=== PATIENT | male | born 1975 | race Caucasian/White ===

== ENCOUNTER → 2019-05-21 08:30 | Outpatient (CLI) | payer BC, SELFPAY ==
[2019-05-21 10:23] LABS: ALB/GLOB Ratio 1.1 RATIO (0.9-2.4); AST(SGOT) 31 U/L (15-37); Alanine Aminotransfer ALT/SGPT 43 U/L (16-61); Alkaline Phosphatase 72 U/L (45-117); Anion Gap 0 (5-15); BUN 19 mg/dL (7-18); BUN/Creat Ratio 15.4 RATIO (10-20); Calcium,Total 9.1 mg/dL (8.5-10.1); Chloride 105 mmol/L (98-107); Cholesterol 186 mg/dL (200); Creatinine, Serum 1.23 mg/dL (0.70-1.30); EST Glomerular Filtration Rate 68 mL/min (>60); Est Glom Filt Rate - Afr Amer 82 mL/min (>60); Globulin 3.5 g/dL (2.2-4.2); Glucose 85 mg/dL (74-106); High Density Lipoprotein 50 mg/dL; Potassium 4.7 mmol/L (3.5-5.1); Protein, Total 7.5 g/dL (6.4-8.2); Sodium Level 140 mmol/L (136-145); Triglycerides 131 mg/dL; Very Low Density Lipoprotein 26 mg/dL (5-40)
[2019-05-21 11:43] LABS: Microalbumin,Random Urine < 5.0 mg/L (NO RANGE EST.)
== END ==
PROVIDERS: Family Provider Family Medicine; PCP Family Medicine; Referring Provider Family Medicine; Visit Provider Family Medicine
DX: Z00.00 Encounter for general adult medical examination without abnormal findings (principal)
CPT/HCPCS: 36415; 80053; 80061; 82043; 82570

== ENCOUNTER → 2019-12-31 09:24 | Outpatient (CLI) | payer BC, SELFPAY ==
[2019-12-31 12:43] LABS: Anion Gap 7 (5-15); BUN 23 mg/dL (7-18); BUN/Creat Ratio 21.1 RATIO (10-20); Calcium,Total 9.3 mg/dL (8.5-10.1); Chloride 104 mmol/L (98-107); Creatinine, Serum 1.09 mg/dL (0.70-1.30); EST Glomerular Filtration Rate 78 mL/min (>60); Est Glom Filt Rate - Afr Amer 94 mL/min (>60); Glucose 84 mg/dL (74-106); Sodium Level 141 mmol/L (136-145)
== END ==
PROVIDERS: PCP Family Medicine; Visit Provider Family Medicine
DX: I10 Essential (primary) hypertension (principal)
CPT/HCPCS: 36415; 80048

== ENCOUNTER → 2020-07-06 14:55 | Outpatient (CLI) | payer BC, SELFPAY ==
[2020-07-06 18:26] LABS: Anion Gap 6 (5-15); BUN 20 mg/dL (7-18); BUN/Creat Ratio 18.3 RATIO (10-20); Calcium,Total 8.8 mg/dL (8.5-10.1); Chloride 105 mmol/L (98-107); Creatinine, Serum 1.09 mg/dL (0.70-1.30); EST Glomerular Filtration Rate 78 mL/min (>60); Est Glom Filt Rate - Afr Amer 94 mL/min (>60); Glucose 100 mg/dL (74-106); Potassium 3.9 mmol/L (3.5-5.1); Sodium Level 141 mmol/L (136-145)
[2020-07-06 18:45] LABS: Microalbumin,Random Urine 7.8 mg/L (NO RANGE EST.); Microalbumin:Creatinine Ratio 3.6 mg/g CRE (<30 mg/g CRE)
== END ==
PROVIDERS: PCP Family Medicine; Referring Provider Family Medicine; Visit Provider Family Medicine
DX: Z00.00 Encounter for general adult medical examination without abnormal findings (principal)
CPT/HCPCS: 36415; 80048; 82043; 82570

== ENCOUNTER → 2020-07-29 16:44 | Outpatient (CLI) | payer BC, SELFPAY ==
--- NOTE | 2020-07-29 16:50 | RAD_ITS ---
STUDY: X-RAY - LUMBAR SPINE REASON FOR EXAM: Male, 45 years old. Lower back pain. TECHNIQUE: 3 view(s) of the lumbar spine were obtained. COMPARISON: None FINDINGS: Normal lumbar lordosis. There is no substantial scoliosis. There is a normal alignment of the vertebrae. Normal vertebral bodies and endplates. Normal disc space heights. There is no evidence of acute fracture or loss of vertebral axial height. The soft tissue structures are unremarkable. RAD/Lumbar Spine 2 or 3 Views IMPRESSION: Normal x-ray examination of the lumbar spine. Electronically Signed: Mario Jimenez DO at 16:40 EST Tel [phone], Service support ,
--- NOTE | 2020-07-29 16:51 | RAD_ITS ---
STUDY: X-RAY - THORACIC SPINE REASON FOR EXAM: Male, 45 years old. Upper back pain radiating between shoulder blades in the left shoulder and into the hand. TECHNIQUE: 3 view(s) of the thoracic spine were obtained. COMPARISON: None. FINDINGS: Normal kyphosis of the thoracic spine. There is no substantial scoliosis. Normal thoracic vertebrae and endplates. Normal disc space heights. There is no evidence of acute fracture or loss of vertebral axial height. The soft tissue structures are unremarkable. RAD/Thoracic Spine 3 Views IMPRESSION: Normal x-ray examination of the thoracic spine. Electronically Signed: Mario Jimenez DO at 16:44 EST Tel [phone], Service support ,
== END ==
PROVIDERS: PCP Family Medicine; Referring Provider Family Medicine; Visit Provider Family Medicine
DX: M54.9 Dorsalgia, unspecified (principal)
CPT/HCPCS: 72072; 72100

== ENCOUNTER 2020-09-20 10:30 | Outpatient (RCR) | payer BC, SELFPAY ==
--- NOTE | 2020-08-03 14:57 | HP.PTEVAL ---
Patient's Visit Information SHANELLE HARGROVE is a 45 year old M referred to Physical Therapy by Dr. Jackson Sapp MD with a diagnosis of BACK PAIN. Date of Evaluation: 08/03/20 Physical Therapist: Jorge Hernandez, PT, Cert MDT, OCS - Visit Plan Frequency: 2x /Week Duration: 4 Weeks Plan: PT INTERVENTIONS MANULA THERAPY TRACTION- MOBILIZATION THORACIC /CERVICAL,SARA EX'S,POSTURAL EX'S,MODALTIES -ICTX 15-23# ,THORACIC MOBLITY - Subjective This 45 y/o male presents to physical therapy with back pain. Patient has back pain for about 2 years . Patient pain is located upper back shoulder scapular ,neck radiates to left arm. Patient about one year on swing and pulled back felt pain in left arm. Patient has seen massage therapy . Patient has seen chiroprcator as well.Patient MEDS overcounter. Patient had x-ray in thoracic, Denies parathesai/tingling ,occassionally left shoulder and occassionally deltoid. Aggraveting factors sitting,bending flexion lifting. Alleviating factors MEDS . Hobbies plays [employer].C/O PÉREZ ,denies nausea/tinnutis. Patient sleeping okay. Patient pain in neck and upper back affects jobs and hosueworks. Patient symptoms afects QOL.Pain at worse 8-9/10. SOCAIL: . 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 PALPATION: unremrkable. NEURO: intact ,denies parathesia/tingling,reflexes C5-6-7 1/3. 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 AROM: shoulder flexion /abd WFL. MMT: BUE 5/5 ,SHOULDER RIGHT 4/5 ,LEFT 4-/5. CERVICAL ROM: flexion min loss pain,extension min/mod loss,rotation/lateral felxion min/mod loss ,retraction min loss,protrusion min loss. THORACIC ROM: min loss ,extension /flexion/rotation - Special Tests C/S Radiculapathy - Left Upper limb tension test: Negative C/S Radiculapathy - Right Upper limb tension test: Negative C/S Radiculapathy - Left Spurlings: Positive C/S Radiculapathy - Right Spurlings: Negative C/S Radiculapathy - Left Cervical distraction: Negative C/S Radiculapathy - Right Cervical distraction: Negative C/S Radiculapathy - Left Relief test: Negative Sharp Janusz: Negative Vertebral Artery Test: Negative Alar Ligament Test: Negative Cervical Sitting: Protrusion - Mechanical Response: No effect Cervical Sitting: Protrusion - Symptoms During Testing: Increases Cervical Sitting: Protrusion - Symptoms After Testing: No worse Cervical Sitting: Retraction - Mechanical Response: No effect Cervical Sitting: Retraction - Symptoms During Testing: Increases Cervical Sitting: Retraction - Symptoms After Testing: Worse Comments:: UT/SHOULDER Cervical Sitting: Retraction-Extension - Mechanical Response: No effect Cerv Sitting: Retraction-Extension - Symptoms During Testing: No effect Cerv Sitting: Retraction-Extension - Symptoms After Testing: No effect Cervical Sitting: Sidebend Right - Mechanical Response: No effect Cervical Sitting: Sidebend Right - Symptoms During Testing: No effect Cervical Sitting: Sidebend Right - Symptoms After Testing: No effect Cervical Sitting: Sidebend Left - Mechanical Response: No effect Cervical Sitting: Sidebend Left - Symptoms During Testing: Increases Cervical Sitting: Sidebend Left - Symptoms After Testing: No worse Cervical Sitting: Rotation Right - Mechanical Response: No effect Cervical Sitting: Rotation Right - Symptoms During Testing: No effect Cervical Sitting: Rotation Right - Symptoms After Testing: No effect Cervical Sitting: Rotation Left - Mechanical Response: No effect Cervical Sitting: Rotation Left - Symptoms During Testing: Increases Cervical Sitting: Rotation Left - Symptoms After Testing: No worse Cervical Sitting: Flexion - Mechanical Response: No effect Cervical Sitting: Flexion - Symptoms During Testing: Increases Cervical Sitting: Flexion - Symptoms After Testing: Worse Thoracic Sitting: Flexion - Mechanical Response: No effect Thoracic Sitting: Flexion - Symptoms During Testing: No effect Thoracic Sitting: Flexion - Symptoms After Testing: No effect Thoracic Sitting: Extension - Mechanical Response: No effect Thoracic Sitting: Extension - Symptoms During Testing: No effect Thoracic Sitting: Extension - Symptoms After Testing: No effect Thoracic Sitting: Right rotation - Mechanical Response: No effect Thoracic Sitting: Right Rotation - Symptoms During Testing: No effect Thoracic Sitting: Right Rotation - Symptoms After Testing: No effect Thoracic Sitting: Left rotation - Mechanical Response: No effect Thoracic Sitting: Left Rotation - Symptoms During Testing: No effect Thoracic Sitting: Left Rotation - Symptoms After Testing: No effect - Goals Goal 1:: I with HEP . Goal Time Frame: 4-6 Weeks Goal 2:: Improve posture for prophalaxis Goal Time Frame: 4-6 Weeks Goal 3:: Patient to reduce cervical and upper back symptoms with radicaular by 50% or > to improve function. Goal Time Frame: 4-6 Weeks Goal 4:: Patient to improve cervical and thoracic ROM for function of recovery Goal Time Frame: 4-6 Weeks Goal 5:: Patient to improve neck owestry score by 5 points 0r> to improve QOL. Goal Time Frame: 4-6 Weeks - Rehabilitation Potential Physical Therapy Diagnosis: This patient has possiblel cervical derrangement with disc due to flexion ,postural deficits,postional and motion testing increases symptoms in left arm tatiana irwin from skilled PT Rehabilitation Potential: Good - Anticipated Interventions Patient/Client Instruction: Educate patient on: Condition, Plan of Care For the Purpose of:: To decrease pain, To increase ROM, To improve muscle performance and motor function, To improve ability to perform ADL's, To increase tolerance to activity/condition/position, To improve ability of physical actions for home/community/work/leisure, To improve health of tissue, To decrease soft tissue restriction, To increase flexibility/ROM, To improve balance, To reduce risk of recurrence, To improve health and function, To improve ability to perform tasks related to life management Therapeutic Exercise to Include: Strength training, Body mechanics, Postural training, Flexibilty training, Sara Exercises For the Purpose of:: To decrease pain, To increase ROM, To improve muscle performance and motor function, To improve ability to perform ADL's, To improve performance and independence with ADL's, To improve ability of physical actions for home/community/work/leisure, To decrease soft tissue restriction, To increase flexibility/ROM, To reduce risk of recurrence, To improve ability to perform tasks related to life management Manual Therapy Techniques to Include: Mobilization Comment: CERVICAL TRACTION ,THORACIC For the Purpose of:: To decrease pain, To increase ROM, To improve nutrient delivery to tissue, To increase oxygenation perfusion, To improve health of tissue, To decrease soft tissue restriction, To increase flexibility/ROM TENS: Yes IF ES: Yes Cryotherapy (ice pack, ice massage): Yes Thermo therapy (hot pack): Yes Ultrasound (thermal/non thermal): Yes Intermittent cervical traction: Yes - # For the Purpose of:: To decrease pain, To increase ROM, To improve nutrient delivery to tissue, To increase oxygenation perfusion, To improve health of tissue, To decrease soft tissue restriction, To increase flexibility/ROM Thank you for the opportunity to evaluate your patient. For Medicare and Medicare HMO plans, please review the plan of care and approve it. It will need to be FAXED BACK to us at [phone] for Medicare purposes. For Medicare only, by signing this I certify the plan of care. Please let me know if there are questions or concerns regarding this plan of care. Physician Signature: Date:
--- NOTE | 2020-09-20 10:59 | HP.PTDCSUM ---
It has been my pleasure to treat SHANELLE HARGROVE referred by Dr. Jackson Sapp MD, with the diagnosis of BACK PAIN for a total of 7 visit(s). Discharge Date: 09/20/20 Please see the following information for a summary of their discharge status. Subjective: Doing well .. no pain today. sleeping better.palb to RTD Left Neck Pain Intensity (Out of 10): 0 Left Scapula Pain Intensity (Out of 10): 0 Left Shoulder Pain Intensity (Out of 10): 0 % Improvement: 90 Objective/Function: POSTURE: WFL. BUE: AROM WFL. MMT: 5/5. CERVICAL ROM: flexion WFL,extension min loss,lateral flexion/rotation WFL Goal 1:: I with HEP . Goal Progress: Goal Met Goal 2:: Improve posture for prophalaxis Goal Progress: Goal Met Goal 3:: Patient to reduce cervical and upper back symptoms with radicaular by 50% or > to improve function. Goal Progress: Goal Met Goal 4:: Patient to improve cervical and thoracic ROM for function of recovery Goal Progress: Goal Met Goal 5:: Patient to improve neck owestry score by 5 points 0r> to improve QOL. Goal Progress: Goal Met Plan: D/C Discharge Comments: HEP If there are questions or concerns regarding this patient's physical therapy, please feel free to call me at [phone]. Thank you for the referral of this patient. Sincerely, Jorge Hernandez, PT, Cert MDT, OCS
== END 2020-09-20 19:00 | disposition home or self-care (01) ==
LOC: PT 10:30
PROVIDERS: PCP Family Medicine; Referring Provider Family Medicine; Visit Provider Family Medicine
DX: M54.9 Dorsalgia, unspecified (principal)
CPT/HCPCS: 97012; 97035; 97110; 97140; 97161

== ENCOUNTER → 2021-01-21 06:30 | Outpatient (CLI) | payer BC, SELFPAY ==
--- NOTE | 2021-01-21 06:40 | MRI_ITS ---
STUDY: MRI CERVICAL SPINE WITHOUT CONTRAST REASON FOR EXAM: Male, 45 years old. L SHOULDER PAIN TECHNIQUE: Standardized fat and water weighted pulse sequences were obtained in the sagittal and axial planes. COMPARISON: None FINDINGS: Normal foramen magnum and brainstem-cervical cord junction. Normal craniovertebral junction. Normal anterior atlantoaxial articulation. Normal odontoid process. Normal cervical lordosis. Normal vertebral bodies and posterior osseous elements. C2-3: Normal endplates. Normal disc height, signal and morphology. Normal central canal and intervertebral neural foramina. C3-4: Normal endplates. Normal disc height, signal and morphology. Normal central canal and intervertebral neural foramina. C4-5: Normal endplates. Normal disc height, signal and morphology. Normal central canal and intervertebral neural foramina. C5-6: Normal endplates. Normal disc height, signal and morphology. Normal central canal and intervertebral neural foramina. C6-7: Normal endplates. Mild disc space height narrowing. Small left posterior paramedian disc protrusion touching the left ventral cord surface. Mild stenosis of the left intervertebral neural foramen. Normal right intervertebral neural foramen. C7-T1: Normal endplates. Normal disc height, signal and morphology. Normal central canal and intervertebral neural foramina. T1-T2, T2-T3, T3-T4 and T4-T5: (Sagittal only). Normal endplates. Normal disc height, signal and morphology. Normal central canal and intervertebral neural foramina. Normal cervical cord. Normal included upper thoracic spinal cord. Normal included portions of the brainstem and cerebellum. Normal visualized soft tissue structures. MRI/Spine Cervical (Routine) IMPRESSION: 1. C6-C7 posterior paramedian disc protrusion touching the left ventral cord surface without obvious displacement of the left C7 nerve root sleeve. 2. No MRI evidence of cervical extruded disc fragment. Electronically Signed: Dirk West MD at 16:12 EDT , Service support ,
== END ==
PROVIDERS: PCP Family Medicine; Referring Provider Family Medicine; Visit Provider Family Medicine
DX: M54.12 Radiculopathy, cervical region (principal)
CPT/HCPCS: 72141

== ENCOUNTER → 2022-12-22 | Outpatient (CLI) | payer OTHER, SELFPAY ==
[2022-12-22 09:26] LABS: ALB/GLOB Ratio 1.2 RATIO (0.9-2.4); AST(SGOT) 17 U/L (15-37); Alanine Aminotransfer ALT/SGPT 20 U/L (16-61); Albumin, Serum 3.9 g/dL (3.2-5.0); Alkaline Phosphatase 62 U/L (45-117); Anion Gap 5 (5-15); BUN 22 mg/dL (7-18); BUN/Creat Ratio 19.1 RATIO (10-20); Calcium,Total 8.9 mg/dL (8.5-10.1); Chloride 107 mmol/L (98-107); Cholesterol 187 mg/dL (200); Creatinine, Serum 1.15 mg/dL (0.70-1.30); EST Glomerular Filtration Rate 72 mL/min (>60); Est Glom Filt Rate - Afr Amer 87 mL/min (>60); Globulin 3.3 g/dL (2.2-4.2); Glucose 92 mg/dL (74-106); High Density Lipoprotein 57 mg/dL; Potassium 4.5 mmol/L (3.5-5.1); Protein, Total 7.2 g/dL (6.4-8.2); Sodium Level 141 mmol/L (136-145); Triglycerides 68 mg/dL; Very Low Density Lipoprotein 14 mg/dL (5-40)
[2022-12-22 09:38] LABS: Microalbumin,Random Urine 5.6 mg/L (NO RANGE EST.); Microalbumin:Creatinine Ratio 3.7 mg/g CRE (<30 mg/g CRE)
== END | disposition home or self-care (01) ==
LOC: LAB 07:56
PROVIDERS: PCP Family Medicine; Referring Provider Family Medicine; Visit Provider Family Medicine
DX: I10 Essential (primary) hypertension (principal)
CPT/HCPCS: 36415; 80053; 80061; 82043; 82570

== ENCOUNTER 2023-04-13 06:23 | Day surgery (SDC) | payer OTHER, SELFPAY ==
[2023-04-13] VITALS (11 sets, daily range): BP systolic 109–152; BP diastolic 71–117; PULSE 45–54; RESP 16; TEMP 36.2–36.5; O2SAT 97–100; BMI 26.6
--- NOTE | 2023-04-13 | COLBX_PTH ---
PATIENT: SHANELLE HARGROVE LOC: EN U#:[id number] AGE/SX: 48/M ROOM: RE04/13/[address]: Dr. Al Vasquez MD : 1975 BED: DIS: 04/13/2023 SPEC #: [id number] RECD: 04/13/23 08:52 STATUS: DEBBIE MEDINAJoi #: [id number] JUAN: 04/13/23 00:[address]: Al Vasquez DEPT: SURGICAL PATHOLOGY RECD BY: Rusty Marie ENTERED: 04/13/23 08:52 SP TYPE: COLON BX OTHR DR: Dr. 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 See comment. SJ:rg 04/16/2023 COMMENT COLON CANCER SUMMARY: Specimen integrity - fragmented (one large polyp and additional smaller fragments). Tumor size - splenic flexure Histologic type - adenocarcinoma Histologic grade - well-differentiated Size of invasive carcinoma cannot be determined (the invasive carcinoma is present mixed with high-grade dysplasia and carcinoma in situ). Tumor extent - tumor invades submucosa. Lymphvascular invasion - not identified Tumor deposits - none Type of polyp in which invasive carcinoma arose - tubulovillous adenoma Polyp site - 1.8 cm (largest fragment) Polyp configuration - sessile Margin status for invasive carcinoma: The tumor is present focally at the cauterized deep margin. Focal area of deep margin also shows muscularis propria which is free of tumor. Additional findings - none Ancillary studies - none The above summary is in compliance with [employer] [place] [employer] (CAP) Cancer Protocols Checklist and [place] Joint Committee on Cancer (AJCC), Staging Manual, 8th Ed. This case is discussed with Dr. Vasquez on 04/16/2023. MICROSCOPIC DESCRIPTION Slides are reviewed. GROSS DESCRIPTION Received in fixative is one container labeled with the patient's name and designated polyp splenic flexure. The specimen consists of a pink-red polyp measuring 1.8 x 1.8 x 1.0 cm. The presumed base is inked. The polyp is serially sectioned. Also present in the container are multiple detached fragments of cavanaugh-pink soft tissue measuring in aggregate 2.0 x 0.5 x0.1 cm. The entire specimen is submitted in three cassettes as follows: 1 & 2 - polyp, 3 - fragments of tissue. / MELCHOR:josh 04/13/2023 TC:0 CPT: 82456
--- NOTE | 2023-04-13 06:45 | HP.PCM_ITS ---
[facility] - General General Date of Service: 04/13/23 Chief Complaint: Screening for intestinal cancer HPI Narrative SHANELLE HARGROVE, is a 48 M who presents who presents via open access today for screening colonoscopy with possible biopsy or polypectomy. Intermittently he occasionally will have some bright red blood on the tissue paper and attributes that to hemorrhoids. He states that he otherwise enjoys good health other than treated hypertension Family history is negative for colon polyps or colon cancer [facility] Medical History (Updated 04/10/23 @ 12:49 by Yumi Chicas) Cardiac murmur Conductive hearing loss HTN (hypertension) Migraine Non-smoker Thrombosed external hemorrhoid Home Medications bisoprolol fumarate 5 mg tablet 5 mg PO DAILY 02/23/23 [History Last Taken Unknown] lisinopril 20 mg tablet 20 mg PO DAILY 02/23/23 [History Last Taken Unknown] Allergy/AdvReac Type Severity Reaction Status Date / Time No Known Allergies Allergy Verified 04/13/23 06:49 Surgical History Barron teeth extracted Social History (Updated 02/23/23 @ 11:31 by Lupis Evangelista) household members: spouse and children number of children: 9 current occupational status: employed 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 Smoking Status: Never smoker alcohol intake: never ROS Constitutional Constitutional: Reports systems reviewed and no addt'l complaints, except as documented Cardiovascular Cardiovascular: Denies chest pain Respiratory/Chest Respiratory/Chest: Denies shortness of breath at rest Gastrointestinal Gastrointestinal: Denies abdominal pain, change in bowel habits, hematochezia or melena Physical Exam Const alert, oriented x3 and no apparent distress General Appearance: cooperative and comfortable Eyes General Eye: normal appearance of both eyes Neck General: normal visual inspection Chest inspection of chest normal Resp Effort and Inspection: able to speak in complete sentences and symmetric chest movement Auscultation: clear to auscultation bilaterally Cardio regular rate and regular rhythm GI soft to palpation, non-tender and non-distended Extremity no calf tenderness Neuro oriented x3 Psych thought process normal Assessment & Plan Assessment/Plan (1) Encounter for screening for malignant neoplasm of colon: PLAN: 48-year-old gentleman presents via open access today for screening colonoscopy with possible biopsy or polypectomy. He has not had a previous one. He is aware of the technique, benefit, risk, alternatives. He has had an opportunity to ask and have questions answered. We will proceed as noted. Al Vasquez M.D., F.A.C.S.
[2023-04-13] MEDS: Lactated Ringers 1,000 ML 15 ML IV (07:00)
--- NOTE | 2023-04-13 08:10 | OP.COLON_ITS ---
Patient Name: Zachary Armas Procedure Date: 04/13/2023 7:16 AM Date of : 1975 Age: 48 Procedure: Colonoscopy Indications: Screening for colorectal malignant neoplasm Providers: Al Vasquez MD Referring MD: Jackson Sapp Medicines: Midazolam 5 mg IV, Meperidine 100 mg IV Patient Profile: Last Colonoscopy: none. The patient's first colonoscopy is today. Complications: No immediate complications. Procedure: Pre-Anesthesia Assessment: - Prior to the procedure, a History and Physical was performed, and patient medications and allergies were reviewed. The patient's tolerance of previous anesthesia was also reviewed. The risks and benefits of the procedure and the sedation options and risks were discussed with the patient. All questions were answered, and informed consent was obtained. Prior Anticoagulants: The patient has taken no anticoagulant or antiplatelet agents. ASA Grade Assessment: I - A normal, healthy patient. After reviewing the risks and benefits, the patient was deemed in satisfactory condition to undergo the procedure. After I obtained informed consent, the scope was passed under direct vision. Throughout the procedure, the patient's blood pressure, pulse, and oxygen saturations were monitored continuously. The Colonoscope was introduced through the anus and advanced to the cecum, identified by appendiceal orifice and ileocecal valve. The colonoscopy was performed with moderate difficulty due to a tortuous colon. Successful completion of the procedure was aided by increasing the dose of sedation medication. The patient tolerated the procedure well. The quality of the bowel preparation was fair. The ileocecal valve and the appendiceal orifice were photographed. Moderate Sedation: Moderate (conscious) sedation was personally administered by the endoscopist. The following parameters were monitored: oxygen saturation, heart rate, blood pressure, and response to care. Total physician intraservice time was 20 minutes. Scope In: 7:23:37 AM Scope Withdrawal Time 0 hours 27 minutes 55 seconds Scope Out: 8:01:22 AM Total Procedure Duration Time 0 hours 37 minutes 45 seconds Findings: The perianal and digital rectal examinations were normal. The colon (entire examined portion) was moderately tortuous. Advancing the scope required using manual pressure. An 18 mm polyp was found in the splenic flexure. The polyp was sessile. The polyp was removed with a hot snare. Polyp resection was incomplete. The resected tissue was retrieved. To prevent bleeding post-intervention, four hemostatic clips were successfully placed. There was no bleeding at the end of the procedure. Area was tattooed with an injection of 2 mL of Rashida ink. Impression: - Preparation of the colon was fair. - Tortuous colon. - One 18 mm polyp at the splenic flexure, removed with a hot snare. Incomplete resection. Resected tissue retrieved. Clips were placed. Tattooed. Recommendation: - Repeat colonoscopy in 1 month for surveillance based on pathology results Upon and upright abdominal x-rays will be obtained. The patient will be observed.. - Return to my office in 1 week. - Continue present medications. Procedure Code(s): --- Professional --- 21348, Colonoscopy, flexible; with removal of tumor(s), polyp(s), or other lesion(s) by snare technique 04851, Colonoscopy, flexible; with directed submucosal injection(s), any substance 16128, 59, Moderate sedation services provided by the same physician or other qualified health critical care cns performing the diagnostic or therapeutic service that the sedation supports, requiring the presence of an independent trained observer to assist in the monitoring of the patient's level of consciousness and physiological status; initial 15 minutes of intraservice time, patient age 5 years or older Diagnosis Code(s): --- Professional --- Z12.11, Encounter for screening for malignant neoplasm of colon D12.3, Benign neoplasm of transverse colon (hepatic flexure or splenic flexure) Q43.8, Other specified congenital malformations of intestine CPT copyright 2021 [place]. All rights reserved. The codes documented in this report are preliminary and upon volleyball player review may be revised to meet current compliance requirements. Al Vasquez MD 04/13/2023 8:09:42 AM This report has been signed electronically. Number of Addenda: 1 Note Initiated On: 04/13/2023 7:16 AM Addendum Number: 1 Addendum Date: 04/13/2023 8:42:09 AM It is of note that in addition to the IV Demerol and Versed Benadryl 12.5 mg were given as intravenous sedation Al Vasquez M.D., F.A.C.S. Al Vasquez MD 04/13/2023 8:42:40 AM This report has been signed electronically.
--- NOTE | 2023-04-13 08:10 | OP.CCLET_ITS ---
04/13/2023 Jackson Sapp [address] [place] [address] Re : Colonoscopy procedure for Zachary Armas Dear Dr. Sapp This procedure was performed on Thursday, April 13, 2023. My impressions and recommendations are as follows: Impressions : - Preparation of the colon was fair. - Tortuous colon. - One 18 mm polyp at the splenic flexure, removed with a hot snare. Incomplete resection. Resected tissue retrieved. Clips were placed. Tattooed. Recommendations : - Repeat colonoscopy in 1 month for surveillance based on pathology results Upon and upright abdominal x-rays will be obtained. The patient will be observed.. - Return to my office in 1 week. - Continue present medications. My findings are described in the full procedure note, which is enclosed. If I can be of further assistance, please feel free to contact me at Doctor phone number(s): Work: . Sincerely, Al Vasquez MD 04/13/2023 8:09:42 AM This report has been signed electronically.
[2023-04-13] MEDS: Midazolam 2 MG/2 ML Syringe (08:12)
--- NOTE | 2023-04-13 08:35 | RAD_ITS ---
INDICATION: POST OP -- SUPINE AND UPRIGHT EXAMINATION/TECHNIQUE: X-RAY - XR Abdomen W/ Decub and/or Erect Views COMPARISON: No relevant prior comparison study available FINDINGS: BOWEL GAS PATTERN: There are scattered air-fluid levels within nondistended loops of bowel. There are surgical clips within the left abdomen. FREE AIR: No free air is visualized. LOWER CHEST: No acute pathology. BONES AND SOFT TISSUES: No acute pathology. RAD/Abd Inc Decub and/or Erect IMPRESSION: Nonspecific bowel gas pattern. Electronically Signed: Jennifer Khoury MD at 8:58 EDT ,
--- NOTE | 2023-04-13 08:48 | SUR.PHASEII ---
returned from xray -awaiting Dr Vasquez to review
--- NOTE | 2023-04-13 08:58 | NURSING ---
abd soft nontender, no pain
== END 2023-04-13 10:21 | disposition home or self-care (01) ==
LOC: EN 06:24 → AC 06:25
PROVIDERS: PCP Family Medicine; Referring Provider Family Medicine; Visit Provider Surgery
PROC: 0DJD8ZZ Inspection of Lower Intestinal Tract, Via Natural or Artificial Opening Endoscopic (ICD-10-PCS; CPT 45378; principal; 2023-04-13 07:25)
DX: Z12.11 Encounter for screening for malignant neoplasm of colon (principal); I10 Essential (primary) hypertension; D12.3 Benign neoplasm of transverse colon; Q43.8 Other specified congenital malformations of intestine
CPT/HCPCS: 45385; 45381; 74019; 88305; 88307; 99152; 99153; J7120; A4648

== ENCOUNTER → 2023-04-16 | Outpatient (CLI) | payer OTHER, SELFPAY ==
[2023-04-16 16:34] LABS: Absolute Lymphocyte Count 1.08 X10^3/uL (0.83-4.51); Absolute Neutrophil Count 5.7 X10^3/uL (2.0-7.7); Basophil# 0.03 X10^3/uL; Basophil% 0.4 % (0-1); Eosinophil# 0.02 X10^3/uL; Eosinophils% 0.3 % (0-5); Hematocrit 42.9 % (40-54); Hemoglobin 14.7 g/dL (13.0-16.5); Lymphocyte # 1.08 X10^3/ul (0.83-4.51); Lymphocyte % 14.8 % (19-41); Mean Corp Hgb Conc 34.3 g/dL (32-36); Mean Corpuscular Hgb 31.1 pg (27.0-32.0); Mean Corpuscular Volume 90.7 fL (80-94); Mean Platelet Vol. 9.6 fl (6.2-12.0); Monocyte% 6.8 % (0-10); NRBC Flagged by Analyzer 0 % (0-5); Neutrophil # 5.65 X10^3/uL (2.7-7.7); Neutrophil % 77.4 % (47-70); Platelet Count 243 K/mm3 (150-450); RBC Distribution Width CV 11.6 % (11.6-14.6); RBC Distribution Width SD 38.6 fl (35.1-43.9); Red Blood Count 4.73 M/mm3 (4.6-6.2); White Blood Count 7.3 K/mm3 (4.4-11.0)
[2023-04-16 17:13] LABS: ALB/GLOB Ratio 1.2 RATIO (0.9-2.4); AST(SGOT) 17 U/L (15-37); Alanine Aminotransfer ALT/SGPT 24 U/L (16-61); Alkaline Phosphatase 81 U/L (45-117); Anion Gap 3 (5-15); BUN 13 mg/dL (7-18); BUN/Creat Ratio 11.3 RATIO (10-20); Chloride 107 mmol/L (98-107); Creatinine, Serum 1.15 mg/dL (0.70-1.30); EST Glomerular Filtration Rate 72 mL/min (>60); Est Glom Filt Rate - Afr Amer 87 mL/min (>60); Globulin 3.4 g/dL (2.2-4.2); Glucose 104 mg/dL (74-106); Potassium 3.7 mmol/L (3.5-5.1); Protein, Total 7.4 g/dL (6.4-8.2); Sodium Level 140 mmol/L (136-145)
[2023-04-18 04:07] LABS: Carcinoembryonic Antigen < 0.6 ng/mL (0.0-4.7)
[2023-04-18 13:50] LABS: Magnesium 2.5 mg/dL (1.6-2.6)
== END | disposition home or self-care (01) ==
LOC: LAB 15:41
PROVIDERS: Anesthesiology; PCP Family Medicine; Referring Provider Surgery; Visit Provider Surgery
DX: Z01.818 Encounter for other preprocedural examination (principal); C18.9 Malignant neoplasm of colon, unspecified
CPT/HCPCS: 36415; 80053; 82378; 83735; 85025

== ENCOUNTER → 2023-04-20 | Outpatient (CLI) | payer OTHER, SELFPAY ==
--- NOTE | 2023-04-20 08:09 | CT_ITS ---
STUDY: CT ABDOMEN AND PELVIS WITH CONTRAST REASON FOR EXAM: Male, 48 years old. Prior to surgery. FOUND COLON CANCER DURING COLONOSCOPY RADIATION DOSAGE (If Supplied By Facility): CTDIvol = ( 9.85 ) mGy, DLP = ( 596.31 ) mGycm TECHNIQUE: Transaxial images were obtained from the dome of the diaphragm to the symphysis pubis with oral contrast. 100mL Isovue-300 was administered. Sagittal and coronal images were reconstructed. Individualized dose optimization techniques were used for this CT. COMPARISON: None. FINDINGS: The visualized lung bases are unremarkable. The visualized portions of the heart are within normal limits. Normal liver. Normal gallbladder and extrahepatic biliary system. Normal spleen. Normal pancreas. Normal bilateral adrenal glands. Normal right kidney. Normal left kidney. Normal visualized stomach. Normal small intestine. There is metallic density in the left colon with adjacent wall thickening and potential mass. The appendix is visualized and appears normal. Normal abdominal aorta. Normal inferior vena cava. Normal retroperitoneum. Normal urinary bladder. There is no free fluid in the abdomen or pelvis. Normal abdominal wall. Normal osseous structures. CT/Abdomen/Pelvis WITH Contrast IMPRESSION: Potential mass of the left colon. No obstruction. Electronically Signed: Dillon Yeh MD at 15:50 EDT ,
== END | disposition home or self-care (01) ==
LOC: CT 07:52
PROVIDERS: PCP Family Medicine; Referring Provider Surgery; Visit Provider Surgery
DX: C18.9 Malignant neoplasm of colon, unspecified (principal)
CPT/HCPCS: 74177; Q9967

== ENCOUNTER 2023-04-27 17:05 | Inpatient (IN) | payer OTHER, SELFPAY ==
--- NOTE | 2023-03-20 08:03 | EKG12_ITS ---
Test Reason : PREOP Blood Pressure : / mmHG Vent. Rate : 055 BPM Atrial Rate : 055 BPM P-R Int : 116 ms QRS Dur : 086 ms QT Int : 426 ms P-R-T Axes : 026 019 032 degrees QTc Int : 407 ms Sinus bradycardia Otherwise normal ECG Confirmed by PUMA AMADOR, HAI ([id number]), publication editor AMIRA DAVIDSON ([id number]) on 05/10/2023 2:07:11 PM Referred By: Al Vasquez Confirmed By:JAYMIE BARTHOLOMEW MD
--- NOTE | 2023-04-24 15:45 | RAD_ITS ---
INDICATION: PREOP EXAMINATION/TECHNIQUE: X-RAY - XR Chest 2 Views COMPARISON: CT abdomen and pelvis April 20, 2023 FINDINGS: LINES/DEVICES: None. LUNGS: Symmetric normal lung volumes. No airspace opacity or abnormal interstitial pattern. No nodule or mass. No pleural effusion or pneumothorax. MEDIASTINUM AND CARDIOVASCULAR STRUCTURES: Normal size and contour of the cardiomediastinal silhouette. No evidence of pulmonary vascular congestion. BONES AND SOFT TISSUES: No fracture or focal osseous lesion. RAD/Chest PA and Lateral IMPRESSION: 1. No radiographic evidence of acute cardiopulmonary disease. Electronically Signed: Christiano Howard DO at 20:33 EDT ,
[2023-04-27] VITALS (11 sets, daily range): BP systolic 112–138; BP diastolic 75–87; PULSE 41–63; RESP 14–20; TEMP 36–37; O2SAT 97–100; BMI 26.4
--- NOTE | 2023-04-27 | COL._PTH ---
PATIENT: SHANELLE HARGROVE LOC: MS3 U#:[id number] AGE/SX: 48/M ROOM: [facility] RE04/27/[address]: Dr. Al Vasquez MD : 1975 BED: 1 DIS: 04/28/2023 SPEC #: [id number] RECD: 04/27/23 16:26 STATUS: DEBBIE VILLA #: [id number] JUAN: 04/27/23 00:[address]: Al Vasquez DEPT: SURGICAL PATHOLOGY RECD BY: Rusty Marie ENTERED: 04/30/23 10:39 SP TYPE: COLON OTHR DR: Dr. Jackson Sapp MD Tissues: Colon, NOS Procedures: Surgery Specimen Level HEADER OPERATION: ERAS, laparoscopic left colectomy, open approach on ostomy PRE-OP DIAGNOSIS: Malignant neoplasm of descending colon TISSUE SUBMITTED: Splenic flexure of left colon, suture herrmann distal end MICROSCOPIC DIAGNOSIS Splenic flexure left colon, left colectomy: Intramucosal carcinoma and detached fragments of tubular adenoma with high-grade dysplasia and carcinoma in situ. Focal ulceration and associated inflammation consistent with previous biopsy site. Four out of four lymph nodes, negative for metastatic carcinoma. Donut-shaped piece of tissue, no pathologic diagnosis. See comment. SJ:rg 05/03/2023 COMMENT Please make reference to previous specimen ([id number]), polyp splenic flexure, polypectomy with diagnosis of invasive adenocarcinoma arising in the background of tubulovillous adenoma, extensive high-grade dysplasia and carcinoma in situ. The tumor invades submucosa. Pathologic staging including previous specimen is pT1, N0, Mx. MSI can be performed on previous specimen [id number] as most of the invasive carcinoma is present in the previous polypectomy specimen. Please notify the laboratory, if they are needed. Case has been reviewed in consultation with Dr. Lewis who concurs with the above diagnosis. IDC:AM MICROSCOPIC DESCRIPTION Slides are reviewed. GROSS DESCRIPTION Received in fixative is one container labeled with the patient's name and designated splenic flexure of left colon. The specimen consists of a segment of colon measuring 25.0 cm in length. Both resection margins are stapled. No suture is present identifying distal margin. A focal area of defect is noted in the center portion of the colon 11.0 cm away from one resection margin and 13.5 cm away from opposite resection margin. The serosal surface appears pocketed and 8.0 cm away from one resection margin and inked black. The mucosa is ulcerated in this area. No additional mass lesion is identified. Additional and focal ragged area is noted at serosal surface. The pericolonic adipose tissue is fixed in lymph node revealing solution. Also present in the container is a detached piece of tissue, possible donut, measuring 2.5 x 1.5 x 0.7 cm. the lumen contains hemorrhagic material. More dictation will follow after fixation. / SJ:josh 04/30/2023 Sections of pericolonic adipose tissue do not reveal any obvious lymph node. Client Care Coordinator sections are submitted as follows: 1 - donut-shaped piece of tissue, 2 - proximal and distal resection margins, 3?&?4 - serosal surface with pocketed area and corresponding mucosal ulcerated area, entirely submitted, 5??area of defect, 6 - focal serosal ragged area, 7 - petroleum products sales representative sections from the other areas, 8??possible lymph node and pericolonic adipose tissue. / SJ:josh 05/01/2023 The pericolonic adipose tissue is evaluated for lymph nodes the second time. No obvious lymph nodes are identified. More tissue is submitted in cassettes 9-12 of pericolonic adipose tissue. / SJ:josh 05/02/2023 TC:0 CPT: 63153
[2023-04-27] MEDS: Gabapentin 600 MG Tablet PO (11:42)
[2023-04-27] MEDS: Acetaminophen 500 MG Tablet 1000 MG PO ×2 (11:42→19:43)
[2023-04-27] MEDS: Lactated Ringers 1,000 ML 40 ML IV ×2 (11:43→18:37)
[2023-04-27] MEDS: Magnesium 1 GM over 15 mins IV (11:44)
--- NOTE | 2023-04-27 11:51 | PCM.HP.BLA ---
History and Physical Date of Admission: 04/27/23 Chief Complaint: F/U Colonoscopy 04/13 Input Output Clerk Required: No Accompanied by: Is patient in pain?: No Allergies No Known Allergies Allergy (Verified 04/16/23 14:50) Medications bisoprolol fumarate 5 mg tablet 5 mg PO DAILY 02/23/23 [History Confirmed 04/16/23] lisinopril 20 mg tablet 20 mg PO DAILY 02/23/23 [History Confirmed 04/16/23] metronidazole 500 mg tablet 500 mg PO .COMPLEX #6 tabs 04/16/23 [Rx Confirmed 04/16/23] neomycin 500 mg tablet 500 mg PO .COMPLEX pre-op antibiotics #6 tabs 04/16/23 [Rx Confirmed 04/16/23] PFS Medical History (Updated 04/16/23 @ 16:[address] 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 He presented via open access for screening colonoscopy on April 13, 2023. A 18 mm polyp was identified in the mid descending colon. This was partially resected with a hot snare. 4 hemostatic and pleating clips were applied. 2 cc of Rashida ink was placed to sheeba the area as well. Due to the aggressiveness of the resection I asked him return for surgical follow-up. Pathology demonstrates invasive adenocarcinoma arising in the background of a tubulovillous adenoma extensive high-grade dysplasia and carcinoma in situ. Apparently the size of the invasive component cannot be determined as it is mixed with high-grade dysplasia and carcinoma in situ. The tumor invades the submucosa. There is a muscularis mucosa present but no tumor. The polyp size was 1.8 cm. The margins suggest that there is still tumor present at the cauterized deep margin. ROS General General: No weight change, appetite, fatigue, colon cancer, breast cancer or weakness HEENT HEENT: No difficulty swallowing, eye injury, eye surgery, swollen glands or hoarseness Endo Endocrine: No thyroid disease, diabetes mellitus, thyroid cancer, Hair loss, heat intolerance or cold intolerance Skin Skin: No rash or changing moles Breast Breast: No left breast lump, right breast lump, nipple discharge, breast pain, abnormal mammogram, abnormal US or breast enlargement Musc Musculoskeletal: Yes back problems; No arthritis, rheumatoid arthritis, gout or joint pain Cardio Cardiovascular: Yes high blood pressure; No murmur, pacemaker, heart disease, atrial fibrillation, heart attack, heart stent, palpitations, shortness of breat with exertion or chest pain Psych Psychiatric: Yes anxiety; No depression or hearing voices Resp Respiratory: No shortness of breath, No sleep apnea, No cough, No COPD, No asthma, No emphysema and No wheezing Gastro Gastrointestinal: No abdominal pain, No nausea or vomiting, No diarrhea, No constipation, No blood in stool, No acid reflux, Yes hemorrhoids, No ulcers, No gallbladder problem and No black,tarry stools Ghulam Hematologic: No blood thinners, No blood disorders, No bleeding, No anemia and No blood clots Neuro Neurologic: No system reviewed and no additional complaints, except as documented, No as per HPI, No abnormal gait, No abnormal hearing, No abnormal movements, No abnormal speech, No behavioral changes, No burning sensations, No confusion, No convulsions, No disequilibrium, No dizziness, No localized weakness, No frequent falls, No headache(s), No lack of coordination, No loss of vision, No memory loss, No numbness, No other visual disturbances, No radicular pain, No restless legs, No sensory deficit, No syncope, No tingling, No tremor(s), No weakness and No other Assessment and Plan Assessment and Plan (1) Colon cancer: Status: Acute Qualifiers: Colon location: descending Qualified Code(s): C18.6 - Malignant neoplasm of descending colon Plan: Today was an extensive discussion regarding the pathology finding on the mid descending colon polyp. The patient presents with his today who is a nurse. The patient also has an aunt whose name is Raquel Deleon In great detail I described to the patient the positioning of the a polyp. I recommend to him a laparoscopic left colectomy. In detail we have discussed the technique, benefit, risk and alternatives. I anticipate some positioning of the midline incision. We discussed potential for stapled and/or handsewn anastomosis and potential leak raised. I anticipate a bilateral transabdominal plane block. He is not aware that we will be using an enhanced recovery protocol. He is additionally aware that postprocedural we will anticipate hematology oncology consultation. I will want to obtain a CMP and a CBC and a CEA level. We will want to obtain an abdominal pelvic CT scan. He has had an opportunity to ask and have questions answered. He is aware that there are no guarantees of success. Fortunately subsequent to his colonoscopic procedure he has remained completely symptom-free. His abdominal exam today is extraordinarily benign. We should be able to proceed with a definitive surgery and it is of note that we did Rashida ink the area for marking. I anticipate the requirement for mobilization of the splenic flexure. We will schedule and expedite his care. I appreciate the ongoing option of assisting with his surgical management I have examined the patient and the H&P has been reviewed. There are no clinical changes since date of exam. Al Vasquez M.D., F.A.C.S.
[2023-04-27 12:21] LABS: Bedside Glucose 71 mg/dL (74-106)
[2023-04-27] MEDS: 0.9% Normal Saline (Pres. free 10 ML Vial (12:25)
--- NOTE | 2023-04-27 12:42 | DCINST_ITS ---
Discharge Instructions Procedure General Surgery Diet Discharge Diet: Light diet - advance as tolerated (if you have questions about your diet instructions, please talk to you doctor.) Activity Discharge Activity: May Not Drive (for 3-5 days or while taking narcotic pain medicine.) May shower in (days): 1 Lifting Restrictions: 10 pounds Dressing / Incision Call your doctor if your incision/area has: Continuous Slow Oozing, Sudden Increased Bleeding, Increased Pain/ Swelling, Increased Redness and Foul Smelling Discharge Call your doctor if you observe: Fever of 101 or Higher Suture Line Care: Avoid Pulling/Pushing and Avoid Pinching/Bending Additional Dressing/Incision Instructions:: Change or remove dressing in 4 days. Leave steri-strips in place for 1 week. Follow Up Care Please Follow Up With: Al Vasquez MD When: Call [phone] to make an appointment to be seen in about 10 days. Test Results: Test results from this visit will be discussed in further detail at your follow- up appointment, if applicable. Discharge Plan Admission Admit Date/Time: 04/27/23 17:05 Primary Reason for Your Visit: Colon cancer Attending Provider: Al Vasquez Primary Care Provider: Jackson Sapp Discharge Orders/Prescriptions Prescriptions: Continued lisinopril 20 mg tablet 20 mg PO DAILY bisoprolol fumarate 5 mg tablet 5 mg PO DAILY Discontinued metronidazole 500 mg tablet 500 mg PO .COMPLEX Qty: 6 0RF Rx Instructions: 500 mg PO Take 2 (two) tablets at 1300, 1500, 2300 neomycin 500 mg tablet 500 mg PO .COMPLEX Qty: 6 0RF Rx Instructions: Take two (2) 500 mg tablets PO at 1300, 1500, 2300 Other Ambulatory Orders: 12 Lead EKG (Routine) Timeframe: 20230420 Location: None Selected Ordered By: Dr. Jackson Prasad Referrals / Follow Up: Jackson Sapp MD [Primary Care Provider] - Disposition Disposition (needs filled in before D/C Order can be placed): Home, Self Care
[2023-04-27] MEDS: Cefotetan 2 GM in 0.9% NS 100 ML IV (12:43)
[2023-04-27] MEDS: BUPIVACAINE LIPOSOME/PF 20 ML VIAL OPERA.SITE (14:02)
[2023-04-27] MEDS: Bupivacaine 0.25% 30 ML Vial (14:04)
--- NOTE | 2023-04-27 16:54 | PCM.OPRPT ---
Report of Operation Date of Procedure: 04/27/23 Pre-Operative Diagnosis: Ascending colon cancer Post-Operative Diagnosis: Splenic flexure/descending colon cancer Surgery/Procedure Performed:: Laparoscopic mobilization of the splenic flexure with a laparoscopic left colectomy and bilateral transabdominal plane block Description of Surgical Findings:: Timeout informed consent was obtained. 48-year-old gentleman was taken to the operating placed supine on the table and a general endotracheal intubation anesthesia cefotetan 2 g were given intravenously the abdomen was sterilely prepped and draped after he had been placed on a beanbag in a low lithotomy position 20 cc of Exparel mixed with 60 cc of 0.5% Marcaine diluted with 20 cc of saline was used as local anesthetic and will use for the tap block. Just to the right of the umbilicus used a 5 mm Visiport technology to gain access after skin sites were Christa size the abdomen was initially inflated with CO2 to a pressure of 10 mmHg pressure and then I changed it during the case to 15 mmHg pressure. An additional 5 mm port was placed in the right lower quadrant and a 5 mm port in the epigastric area and a 5 mm port in the left mid abdomen inspection revealed that the dye was located just distal to the curvature at the splenic flexure and the proximal descending colon the transverse and descending colon had a very high overlapping turning was located beneath the spleen. This was a very difficult place to inspect and free. The white line of Toldt was incised from the pelvic brim up to the splenic flexure I then released the gastrocolic omentum from the distal transverse colon and then removed with great difficulty the splenic flexure was gradually and tediously dissected free this was extraordinarily challenging and the inferior 50% of the spleen had to be mobilized because the splenic flexure went cephalad to that having finally achieved that then was able to inspect see the redundancy of the bowel transect the left colic using Hem-o-jose rafael clips and then the Enseal device release the descending colon released the distal transverse colon Maile had full mobilization now. I then made a supraumbilical vertical incision placed a wound protector exited the bowel at that site I had good length. I transected the bowel proximally and distally with a 75 mm stapler placed a silk suture at the distal edge approximated the bowel side to side made enterotomies using the 75 mm stapler to make a [id number] anastomosis and then used a TA X to secure the enterotomy sites felt that I had good patency I took Jackson colonic fat and with a running 4-0 silk provided a patch over the stapled and anastomotic area I felt that I had good viability of the bowel good anastomotic integrity was not able to visualize the mesenteric trap at this place of made no attempt to close it placed back within the abdomen. The right upper quadrant was irrigated and aspirated free of excess fluid. I then under laparoscopic visualization perform a bilateral transabdominal plane block. That proceeded without complication. Greater omentum was placed overlying the small bowel. The splenic area was again inspected was noted to be hemostatic. I had aspirated free any free fluid and it irrigated. The midline wound was closed with a running #1 PDS. This was after gowns and gloves and repeat dressings were applied. The wounds from the trocars and the midline wound was closed with a combination of interrupted subdermal 4-0 Monocryl or running subicular 4-0 Monocryl. Steri-Strips Telfa OpSite dressings applied. Sponge and instrument and needle counts were reported to the surgeon to be correct. Specimens splenic flexure left colon. Drains none. Blood loss 100 cc. He was taken to the recovery room in satisfactory addition without apparent complication Clean contaminated procedure. Synoptic Portion: Element Response Options Operation performed with curative intent. Yes Tumor location splenic flexure Extent of colon and vascular resection splenic flexure left hemicolectomy with transection of the ascending left colic Al Vasquez M.D., F.A.C.S. Surgeon: Al Vasquez Type of Anesthesia: Block,Regional and General Anesthesiologist: Edouard Felix
[2023-04-27] MEDS: Ketorolac 30 MG/ML Syringe 15 MG IV (19:44)
[2023-04-27] MEDS: Docusate Sodium 100 MG Capsule PO (21:09)
[2023-04-28] MEDS: Cefotetan 2 GM in 0.9% Normal Saline (100mL MB+) 100 ML IV (00:30)
[2023-04-28] MEDS: Acetaminophen 500 MG Tablet 1000 MG PO ×3 (00:30→12:59)
[2023-04-28 02:44] VITALS: BP 103/67; PULSE 73; RESP 16; TEMP 37; O2SAT 97
[2023-04-28 06:04] VITALS: BP 112/69; PULSE 62; RESP 16; TEMP 36.6; O2SAT 98
--- NOTE | 2023-04-28 06:28 | PCM.PN.SRG ---
Subjective Subjective Very well. No nausea. Burping. No flatus. Abdominal discomfort is well controlled just with acetaminophen Objective Data Objective Data Vital Signs: Vital Signs Temp Pulse Resp BP Pulse Ox O2 Del Method O2 Flow Rate 97.8 F 62 16 112/69 98 Room Air 2 04/28/23 06:04 04/28/23 06:04 04/28/23 06:04 04/28/23 06:04 04/28/23 06:04 04/28/23 06:04 04/27/23 19:30 Oxygen Flow Rate (L/min) 2 Oxygen Delivery Method Room Air Weight: 189 lb 9.561 oz Body Mass Index (BMI) 26.4 Intake & Output: Intake and Output for Last 24 Hours 04/26/23 04/27/23 04/28/23 23:59 23:59 23:59 Intake Total 1202 / 1202 100 / 100 Output Total 505 / 855 800 / 800 Balance 697 / 347 -700 / -700 Lab / Micro Data Labs: Laboratory Results - last 24 hr 04/27/23 11:27: POC Glucose 71 L Physical Exam Const oriented x3 Resp normal respiratory effort and clear to auscultation bilaterally GI GI Narrative: Soft, just slightly distended, very active bowel sounds, mild drainage on the OpSite dressing at the supraumbilical site but dry and sustained, Assessment & Plan Assessment/Plan (1) Colon cancer: QUALIFIERS: Colon location: descending Qualified Code(s): C18.6 - Malignant neoplasm of descending colon PLAN: Very excellent progress. We will have the Crow DC'd. Advance to a transitional diet but the patient has been cautioned to go slowly. Continue ambulation. Al Vasquez M.D., F.A.C.S.
--- NOTE | 2023-04-28 06:31 | PCM.DC.SUM ---
Providers Date of Admission: 04/27/23 Primary Care Physician: Dr. Jackson Sapp MD Reason For Visit: Laparoscopic, Holden Colectomy Diagnosis Discharge Diagnosis (1) Colon cancer: Status: Acute Code(s): C18.9 - Malignant neoplasm of colon, unspecified Qualifiers: Colon location: descending Qualified Code(s): C18.6 - Malignant neoplasm of descending colon Plan: Very excellent progress. We will have the Crow DC'd. Advance to a transitional diet but the patient has been cautioned to go slowly. Continue ambulation. Al Vasquez M.D., F.A.C.S. Medications at Discharge Home Medications bisoprolol fumarate 5 mg tablet 5 mg PO DAILY HTN 02/23/23 lisinopril 20 mg tablet 20 mg PO DAILY HTN 02/23/23 Hospital Course Summary of Care Provided Hospital Course: The patient was admitted to the hospital on 02/24 2023 and underwent a laparoscopic mobilization of the splenic flexure with left colectomy and primary anastomosis. At the same setting a laparoscopic bilateral transabdominal plane block was performed. Postoperatively he appeared to progress well. Weight / BMI Weight Weight: 189 lb 9.561 oz Body Mass Index (BMI) 26.4 ABG / Lab / Microbiology Data 04/28/23 06:50 04/28/23 06:50 Laboratory: Laboratory Results - last 24 hr 04/27/23 11:27: POC Glucose 71 L D/C Instructions Discharge Diet: Light diet - advance as tolerated (if you have questions about your diet instructions, please talk to you doctor.) May shower in (days): 1 Call your doctor if your incision/area has: Continuous Slow Oozing, Sudden Increased Bleeding, Increased Pain/ Swelling, Increased Redness and Foul Smelling Discharge Call your doctor if you observe: Fever of 101 or Higher Suture Line Care: Avoid Pulling/Pushing and Avoid Pinching/Bending Additional Dressing/Incision Instructions: Change or remove dressing in 4 days. Leave steri-strips in place for 1 week. Please Follow Up With: Al Vasquez MD When: Call [phone] to make an appointment to be seen in about 10 days. Meaningful Use Info Meaningful Use Diagnoses (Choose all that apply): None applicable Discharge Plan Admission Admit Date/Time: 04/27/23 17:05 Primary Reason for Your Visit: Colon cancer Attending Provider: Al Vasquez Primary Care Provider: Jackson Sapp Discharge Orders/Prescriptions Prescriptions: Continued lisinopril 20 mg tablet 20 mg PO DAILY bisoprolol fumarate 5 mg tablet 5 mg PO DAILY Discontinued metronidazole 500 mg tablet 500 mg PO .COMPLEX Qty: 6 0RF Rx Instructions: 500 mg PO Take 2 (two) tablets at 1300, 1500, 2300 neomycin 500 mg tablet 500 mg PO .COMPLEX Qty: 6 0RF Rx Instructions: Take two (2) 500 mg tablets PO at 1300, 1500, 2300 Other Ambulatory Orders: 12 Lead EKG (Routine) Timeframe: 20230420 Location: None Selected Ordered By: Dr. Jackson Prasad Referrals / Follow Up: Jackson Sapp MD [Primary Care Provider] - Disposition Disposition (needs filled in before D/C Order can be placed): Home, Self Care
[2023-04-28 07:55] LABS: Hematocrit 40.1 % (40-54); Mean Corp Hgb Conc 34.9 g/dL (32-36); Mean Corpuscular Hgb 31.2 pg (27.0-32.0); Mean Corpuscular Volume 89.3 fL (80-94); Mean Platelet Vol. 9.7 fl (6.2-12.0); Platelet Count 230 K/mm3 (150-450); RBC Distribution Width CV 11.7 % (11.6-14.6); RBC Distribution Width SD 37.8 fl (35.1-43.9); Red Blood Count 4.49 M/mm3 (4.6-6.2); White Blood Count 11.5 K/mm3 (4.4-11.0)
[2023-04-28 08:12] VITALS: O2SAT 96
[2023-04-28 08:30] LABS: Anion Gap 6 (5-15); BUN 17 mg/dL (7-18); BUN/Creat Ratio 11.4 RATIO (10-20); Calcium,Total 8.4 mg/dL (8.5-10.1); Chloride 106 mmol/L (98-107); Creatinine, Serum 1.49 mg/dL (0.70-1.30); EST Glomerular Filtration Rate 53 mL/min (>60); Est Glom Filt Rate - Afr Amer 65 mL/min (>60); Estimated Creatinine Clearance 64.57 ml/min; Glucose 118 mg/dL (74-106); Potassium 4.2 mmol/L (3.5-5.1); Sodium Level 137 mmol/L (136-145)
[2023-04-28 08:58] VITALS: PULSE 80
[2023-04-28 10:00] VITALS: BP 115/77; PULSE 80; RESP 18; TEMP 37; O2SAT 98
[2023-04-28] MEDS: Docusate Sodium 100 MG Capsule PO (10:36)
[2023-04-28] MEDS: Enoxaparin 40 MG/0.4 ML Syringe SC (10:36)
[2023-04-28] MEDS: Lisinopril 20 MG Tablet PO (10:37)
[2023-04-28] MEDS: Bisoprolol Fumarate 5 MG Tablet PO (10:37)
[2023-04-28] MEDS: Ketorolac 30 MG/ML Syringe 15 MG IV (10:38)
--- NOTE | 2023-04-28 11:30 | CASEMGMT ---
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 Pt voices understanding and consents to?assessment?at this time.? Pt resting in bed in no distress at this time.? @ bedside. Pt is A/O at this time and answers all questions appropriately.?? Care providers, pharmacy, and demographics verified/updated at this time. PCP: Dr Sapp Specialists: Dr Vasquez Preferred Pharmacy: [facility] Insurance: [employer] Prescription Benefit:?Yes Living Will/HPOA:?Has both LW and HCPOA, who is his , Lanette. LNOK: , Lanette Living Arrangements: Lives w/ and 7 children. Independent. Works full-time. Transportation:?Pt states drives self and states no transportation concerns at this time.? also drives. DME: ? Denies using any DME and denies needs.? HHC/SNF: No hx of either. Pt wishes to return home and states has no concerns with going home at time of discharge.? PLAN:??Home [place] PARKERN?RN?CM
--- NOTE | 2023-04-28 15:30 | NURSING ---
spoke w/CM who do not need to see pt prior to D/C updated Dr. Vasquez on pt progress and was agreeable to d/c home
[2023-04-28 15:31] VITALS: BP 109/65; PULSE 50; RESP 18; TEMP 36.6; O2SAT 98
== END 2023-04-28 15:51 | disposition home or self-care (01) | DRG 330 ==
LOC: MS3 04-28 06:30
PROVIDERS: Admitting Provider Surgery; PCP Family Medicine; Referring Provider Surgery; Visit Provider Surgery
PROC: 0DTN0ZZ Resection of Sigmoid Colon, Open Approach (ICD-10-PCS; CPT 44204; principal; 2023-04-27 12:35)
DX: C18.6 Malignant neoplasm of descending colon (principal); C18.5 Malignant neoplasm of splenic flexure; I10 Essential (primary) hypertension
CPT/HCPCS: 36415; 71046; 80048; 82962; 85027; 88309; 93005; 94668; 99252; J7120; C1760; G0463; J2405; J3475; J3490

== ENCOUNTER 2024-04-11 10:02 | Day surgery (SDC) | payer OTHER, SELFPAY ==
[2024-04-11] VITALS (7 sets, daily range): BP systolic 100–115; BP diastolic 63–84; PULSE 44–52; RESP 16–18; TEMP 36.2–36.6; O2SAT 96–100; BMI 27.3
[2024-04-11] MEDS: Lactated Ringers 1,000 ML 15 ML IV (10:33)
--- NOTE | 2024-04-11 10:41 | PCM.PRE.AN2 ---
ASA Classification* ASA Classification ASA Classification: 2 Assessment & Plan Anesthesia* Anesthesia Assessment Anesthesia Assessment: Discussed sedation and/or anesthesia options, risks, benefits, and alternatives with patient/parents/legal guardian/POA. Questions invited. The patient/parents/legal guardian/POA seems to understand and agrees to proceed with anesthesia plan. Reviewed the physical assessment, medical history, allergy history and patient home medications list prior to surgery/procedure/anesthetic and documented any changes. Performed airway and anesthesia risk assessments. Anesthesia Type Anesthesia Type: MAC History Source History Obtained from:: Patient and Chart Anesthesia Focused Assessment* Temperature: 97.1 F Pulse Rate: 47 Blood Pressure: 115/84 Respiratory Rate: 18 Pulse Ox: 100 Oxygen Delivery Method: Room Air Airway Assessment Mouth opens: >3 cm Mallampati Score: II Teeth Condition: Partial (Bridge left lower is prominent does not move. Rest of the teeth are tight.) Neck Range of motion (ROM): Full ROM Pertinent Findings EKG Pertinent Findings:: April 20, 2023. Sinus bradycardia 55 bpm. Focused Labs Anesthesia Preop lab: CBC WBC 11.5 K/mm3 (4.4-11.0) H 04/28/23 06:50 RBC 4.49 M/mm3 (4.6-6.2) L 04/28/23 06:50 Hgb 14.0 g/dL (13.0-16.5) 04/28/23 06:50 Hct 40.1 % (40-54) 04/28/23 06:50 Plt Count 230 K/mm3 (150-450) 04/28/23 06:50 CHEMISTRY Potassium 4.2 mmol/L (3.5-5.1) 04/28/23 06:50 Sodium 137 mmol/L (136-145) 04/28/23 06:50 Magnesium 2.5 mg/dL (1.6-2.6) 04/18/23 13:34 BUN 17 mg/dL (7-18) 04/28/23 06:50 Creatinine 1.49 mg/dL (0.70-1.30) H 04/28/23 06:50 Glucose 118 mg/dL (74-106) H 04/28/23 06:50 POC Glucose 71 mg/dL (74-106) L 04/27/23 11:27 COAG Pre-Assessment Diagnosis/Proposed Procedure Planned Operative Procedure(s): COLONOSCOPY Anesthesia History 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 When Was Last Pacemaker Check QUESTION #4 FULL TEXT: You/Your Family Experience fever (hyperthermia) with Anesthesia Last Oral Intake Last Oral intake: Last Oral Intake NPO since 20:00 04/11/24 10:25 Meds taken in AM with sips of water? Meds patient instructed to take am of surgery Any additional information?: Yes NPO since: 00:00 Meds patient instructed to take am of surgery: Patient finished prep at midnight. PONV PONV - property management accountant: PONV - property management accountant Female No 04/09/24 10:25 HX of Motion Sickness No 04/09/24 10:25 HX of N/V After Surgery No 04/09/24 10:25 Non-Smoker Yes 04/09/24 10:25 Duration of Surgery greater No 04/09/24 10:25 than 60 minutes Number of Risk Factors 1 04/09/24 10:25 PONV Score Low Risk 04/09/24 10:25 Height & Weight Height & Weight: Anesthesia: Height & Weight Height 5 ft 11 in 04/11/24 10:25 Weight: 89 kg 04/11/24 10:25 Body Mass Index (BMI) 27.3 04/11/24 10:25 Respiratory Assessment Respiratory Assessment - property management accountant: Respiratory Tract Infection Hx - property management accountant Hx Respiratory Tract Infection No 04/09/24 10:25 STOP Sleep Apnea STOP Sleep Apnea - property management accountant: STOP Sleep Apnea - property management accountant Hx Hypertension Yes: CONTROLLED WITH MED 04/09/24 10:25 Hx Sleep Apnea No 04/09/24 10:25 CPAP BIPAP Do you snore loudly (louder No 04/09/24 10:25 than talking or can be heard Do you often feel tired/ No 04/09/24 10:25 fatigued/ sleepy during daytime? Has anyone observed you stop No 04/09/24 10:25 breathing during sleep? STOP Results Negative 04/09/24 10:25 QUESTION #5 FULL TEXT : Do you snore loudly (louder than talking or can be heard through closed doors)? Tobacco Use History Tobacco Use History - property management accountant: Tobacco Use History - property management accountant Tobacco Use Smoking Status Never smoker 04/09/24 10:25 Hx Tobacco Use No 04/09/24 10:25 Years Smoking Packs Smoked per Day Smoking Cessation Date was within the last 15 years Hx Smoking Cessation Date Hx Smoking Cessation Counseling Hematologic Medial History Hematologic Hx - property management accountant: Hematologic Medical Hx - return checker Hx of Blood Transfusion No 04/09/24 10:25 Hx of Transfusion in last 3 No 04/09/24 10:25 Months Date of Last Transfusion (if within last 3 months) Ever experience any problems No 04/09/24 10:25 with transfusion(s)? Specify any problems Hx of Preganancy in last 3 N/A 04/09/24 10:25 Months Nurse Filling Out Transfusion VCHRISTIN 04/09/24 10:25 & Questions: Date: 04/09/24 04/09/24 10:25 Time: 10:27 04/09/24 10:25 Patient unable to answer at this time (ie. confused, unrespo /Reproduction History /Reproductive History - property management accountant: /Reproductive Hx- property management accountant Hx Now Gestational Age (in weeks): EDC: Hx Hx Para Hx Section SAB Active Medications Active Medications: Current Medications Generic Name Dose Route Start Last Admin Trade Name Freq PRN Reason Stop Dose Admin Lactated Ringer's 1,000 mls @ 15 mls/hr 04/11/24 10:15 04/11/24 10:33 IV 15 mls/hr .Q48H MALINDA Administration PFSH Medical History Colon cancer Non-smoker Migraine Cardiac murmur Conductive hearing loss Thrombosed external hemorrhoid HTN (hypertension) Encounter for screening for malignant neoplasm of colon Home Medications ?Medication ?Instructions ?Recorded ?Last Taken ?Type bisoprolol fumarate 5 mg tablet 5 mg PO DAILY HTN 02/23/23 04/11/24 History lisinopril 20 mg tablet 20 mg PO DAILY HTN 02/23/23 04/11/24 History Allergy/AdvReac Type Severity Reaction Status Date / Time No Known Allergies Allergy Verified 04/11/24 10:24 Family History Father Hypertension Mother Hypertension Diabetes Surgical History S/P colectomy [place] teeth extracted Social History household members: spouse and children number of children: 9 current occupational status: employed 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
--- NOTE | 2024-04-11 10:44 | HP.PCM_ITS ---
History and Physical Date of Admission: 04/11/24 Intake Vital Signs 04/27/2319:02 02/24/2415:01 Height 5 ft 11 in 5 ft 11 in Weight: 198 lb BMI 27.6 BP 116/73 Blood Pressure Location Rt brachial Position Sitting Respiration 7 L Pulse 42 L Pulse Source Monitor Pulse Oximetry (%) 99 Oxygen Delivery Method room air Intake Visit Reasons: RECALL COLONOSCOPY Chief Complaint: recall colonoscopy Is patient in pain?: No Allergies No Known Allergies Allergy (Verified 02/25/24 15:01) Medications ?Medication ?Instructions ?Recorded ?Confirmed ?Type bisoprolol fumarate 5 mg tablet 5 mg PO DAILY HTN 02/23/23 02/25/24 History lisinopril 20 mg tablet 20 mg PO DAILY HTN 02/23/23 02/25/24 History PFSH Medical History Colon cancer Non-smoker Migraine Cardiac murmur Conductive hearing loss Thrombosed external hemorrhoid HTN (hypertension) Encounter for screening for malignant neoplasm of colon Surgical History S/P colectomy [place] teeth extracted Family History Father HypertensionMother Hypertension Diabetes Social History household members: spouse and children number of children: 9 current occupational status: employed 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 He had a left hemicolectomy for colon cancer last year. He reports no abdominal pain or blood in the stool. No difficulty having bowel movements. ROS General General: No weight change, appetite, fatigue, colon cancer, breast cancer or weakness HEENT HEENT: No difficulty swallowing, eye injury, eye surgery, swollen glands or hoarseness Endo Endocrine: No thyroid disease, diabetes mellitus, thyroid cancer, Hair loss, heat intolerance or cold intolerance Skin Skin: No rash or changing moles Musc Musculoskeletal: Yes back problems; No arthritis, rheumatoid arthritis, gout or joint pain Cardio Cardiovascular: Yes high blood pressure; No murmur, pacemaker, heart disease, atrial fibrillation, heart attack, heart stent, palpitations, shortness of breat with exertion or chest pain Psych Psychiatric: Yes anxiety; No depression or hearing voices Resp Respiratory: No shortness of breath, No sleep apnea, No cough, No COPD, No asthma, No emphysema and No wheezing Gastro Gastrointestinal: No abdominal pain, No nausea or vomiting, No diarrhea, No constipation, No blood in stool, No acid reflux, Yes hemorrhoids, No ulcers, No gallbladder problem and No black,tarry stools Ghulam Hematologic: No blood thinners, No blood disorders, No bleeding, No anemia and No blood clots Neuro Neurologic: No system reviewed and no additional complaints, except as documented, No as per HPI, No abnormal gait, No abnormal hearing, No abnormal movements, No abnormal speech, No behavioral changes, No burning sensations, No confusion, No convulsions, No disequilibrium, No dizziness, No localized weakness, No frequent falls, No headache(s), No lack of coordination, No loss of vision, No memory loss, No numbness, No other visual disturbances, No radicular pain, No restless legs, No sensory deficit, No syncope, No tingling, No tremor(s), No weakness and No other Exam Const General: cooperative Orientation: alert and oriented x3 HENMT Head: normal to inspection Neck Neck: normal visual inspection and full ROM Chest Chest palpation & inspection: normal inspection of the chest Resp Effort & Inspection: normal respiratory effort Auscultation: clear to auscultation bilaterally Cardio Rate: regular rate Rhythm: regular rhythm GI Inspection: non-distended Palpation: soft and nontender Skin General: no rashes or lesions noted Neuro General: patient alert and patient oriented x3 Extrem General: full ROM Psych Appearance: grossly normal Mental Status: mental status grossly normal Assessment and Plan Assessment and Plan (1) Colon cancer: Status: Acute Qualifiers: Colon location: descending Qualified Code(s): 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 Patient is here for his 1 year follow-up colonoscopy. I informed her that his immediate family members should have colonoscopies and his kids should start at age 38. Patient understands. I explained endoscopy in detail to the patient. I explained the risks including but not limited to stroke or heart attack with anesthesia, perforation of the GI tract, bleeding, infection. I explained that any of these could necessitate further emergency surgery. The patient understands and all questions were answered sufficiently. The patient wishes to proceed with procedure. Manan Garza MD Pager: [facility] [address] [place] [address], [address] [place] [address] Office: I have examined the patient and the H&P has been reviewed. There are no clinical changes since date of exam.
--- NOTE | 2024-04-11 11:07 | OP.CCLET_ITS ---
04/11/2024 Jackson Sapp [address] [place] [address] Re : Colonoscopy procedure for Zachary Armas Dear Dr. Sapp This procedure was performed on Thursday, April 11, 2024. My impressions and recommendations are as follows: Impressions : - The entire examined colon is normal on direct and retroflexion views. - No specimens collected. Recommendations : - Discharge patient to home. - Resume previous diet. - Continue present medications. - Repeat colonoscopy in 1 year for surveillance. My findings are described in the full procedure note, which is enclosed. If I can be of further assistance, please feel free to contact me at Doctor phone number(s): , Work: . Sincerely, Manan Garza MD 04/11/2024 11:07:23 AM This report has been signed electronically.
--- NOTE | 2024-04-11 11:07 | OP.COLON_ITS ---
Patient Name: Zachary Armas Procedure Date: 04/11/2024 10:48 AM Date of : 1975 Age: 49 Procedure: Colonoscopy Indications: High risk colon cancer surveillance: Personal history of colon cancer Providers: Manan Garza MD Referring MD: Manan Garza MD Medicines: Propofol per Anesthesia Patient Profile: This is a 49 year old male. Refer to note in patient chart for documentation of history and physical. Last Colonoscopy: 1 year ago. Complications: No immediate complications. Procedure: Pre-Anesthesia Assessment: - Prior to the procedure, a History and Physical was performed, and patient medications and allergies were reviewed. The patient's tolerance of previous anesthesia was also reviewed. The risks and benefits of the procedure and the sedation options and risks were discussed with the patient. All questions were answered, and informed consent was obtained. Prior Anticoagulants: The patient has taken no anticoagulant or antiplatelet agents. After reviewing the risks and benefits, the patient was deemed in satisfactory condition to undergo the procedure. After I obtained informed consent, the scope was passed under direct vision. Throughout the procedure, the patient's blood pressure, pulse, and oxygen saturations were monitored continuously. The pediatric colonoscope was introduced through the anus and advanced to the cecum, identified by appendiceal orifice and ileocecal valve. The colonoscopy was performed without difficulty. The patient tolerated the procedure well. The quality of the bowel preparation was good. The ileocecal valve, appendiceal orifice, and rectum were photographed. Scope In: 10:55:12 AM Scope Withdrawal Time 0 hours 4 minutes 58 seconds Scope Out: 11:04:00 AM Total Procedure Duration Time 0 hours 8 minutes 48 seconds Findings: The entire examined colon appeared normal on direct and retroflexion views. Impression: - The entire examined colon is normal on direct and retroflexion views. - No specimens collected. Recommendation: - Discharge patient to home. - Resume previous diet. - Continue present medications. - Repeat colonoscopy in 1 year for surveillance. Procedure Code(s): --- Professional --- 86265, Colonoscopy, flexible; diagnostic, including collection of specimen(s) by brushing or washing, when performed (separate procedure) Diagnosis Code(s): --- Professional --- Z85.038, Personal history of other malignant neoplasm of large intestine CPT copyright 2022 [employer]. All rights reserved. The codes documented in this report are preliminary and upon land management forester review may be revised to meet current compliance requirements. Manan Garza MD 04/11/2024 11:07:23 AM This report has been signed electronically. Number of Addenda: 0 Note Initiated On: 04/11/2024 10:48 AM
--- NOTE | 2024-04-11 11:15 | PCM.POST.ANE ---
Anesthesia: Postop Eval I Current Vital Signs Temperature: 97.9 F Pulse Rate: 52 Blood Pressure: 100/63 Respiratory Rate: 16 Pulse Ox: 96 Oxygen Delivery Method: Room Air Assessment Airway patent: Yes Spontaneous unlabored respirations: Yes Mental status: Asleep nausea: No Vomiting: No Anesthesia Complication: No Fluid Hydration Crystalloid volume administer (ml): 500 Total IV fluid infused: 500 Progress Note Anesthesia document: Postop Eval 1 completed: Yes
--- NOTE | 2024-04-11 12:53 | PCM.POSTANE2 ---
Anesthesia Postop Eval I Sum Postop Eval Completion status Anesthesia document: Postop Eval 1 completed: Yes Anesthesia Postop Eval I Summary Anesthesia Postop Eval I Summary: Anesthesia Postop Eval I: Assessment Summary Airway patent Yes 04/11/24 11:15 [email or web address] Spontaneous unlabored Yes 04/11/24 11:15 [email or web address] respirations Mental status Asleep 04/11/24 11:15 [email or web address] nausea No 04/11/24 11:15 [email or web address] Vomiting No 04/11/24 11:15 [email or web address] Anesthesia Postop Eval I: Fluid Summary Crystalloid volume administer 500 04/11/24 11:15 [email or web address] (ml) Colloids volume administered ( ml) Blood Product volume administered (ml) Total IV fluid infused 500 04/11/24 11:15 [email or web address] Anesthesia Postop Eval I: Summary Notes Anesthesia Complication No 04/11/24 11:15 [email or web address] Anesthesia Complication Comment: Post-operative progress note Anesthesia: Postop Eval II Evaluation Mental status: Awake Pain Level: 0 nausea: No Vomiting: No
== END 2024-04-11 11:57 | disposition home or self-care (01) ==
LOC: EN 10:03 → AC 10:05
PROVIDERS: PCP Family Medicine; Referring Provider Surgery; Visit Provider Surgery
PROC: 0DJD8ZZ Inspection of Lower Intestinal Tract, Via Natural or Artificial Opening Endoscopic (ICD-10-PCS; CPT 45378; principal; 2024-04-11 10:55)
DX: Z12.11 Encounter for screening for malignant neoplasm of colon (principal); I10 Essential (primary) hypertension; Z85.038 Personal history of other malignant neoplasm of large intestine; Z90.49 Acquired absence of other specified parts of digestive tract; Z79.899 Other long term (current) drug therapy
CPT/HCPCS: 45378; J7120; J2405

== ENCOUNTER → 2024-05-19 | Outpatient (CLI) | payer OTHER, SELFPAY ==
[2024-05-19 17:46] LABS: Absolute Lymphocyte Count 1.97 X10^3/uL (0.83-4.51); Absolute Neutrophil Count 3.2 X10^3/uL (2.0-7.7); Basophil# 0.04 X10^3/uL; Basophil% 0.7 % (0-1); Eosinophil# 0.13 X10^3/uL; Eosinophils% 2.2 % (0-5); Hemoglobin 14.7 g/dL (13.0-16.5); Lymphocyte # 1.97 X10^3/ul (0.83-4.51); Lymphocyte % 34.1 % (19-41); Mean Corp Hgb Conc 33.4 g/dL (32-36); Mean Corpuscular Volume 89.8 fL (80-94); Mean Platelet Vol. 9.8 fl (6.2-12.0); Monocyte# 0.48 X10^3/uL; Monocyte% 8.3 % (0-10); NRBC Flagged by Analyzer 0 % (0-5); Neutrophil # 3.16 X10^3/uL (2.7-7.7); Neutrophil % 54.7 % (47-70); Platelet Count 248 K/mm3 (150-450); RBC Distribution Width CV 12.4 % (11.6-14.6); RBC Distribution Width SD 40.1 fl (35.1-43.9); White Blood Count 5.8 K/mm3 (4.4-11.0)
[2024-05-19 17:57] LABS: ALB/GLOB Ratio 1.2 RATIO (0.9-2.4); AST(SGOT) 25 U/L (15-37); Alanine Aminotransfer ALT/SGPT 22 U/L (16-61); Albumin, Serum 4.1 g/dL (3.2-5.0); Alkaline Phosphatase 64 U/L (45-117); Anion Gap 6 (5-15); BUN 27 mg/dL (7-18); BUN/Creat Ratio 19.9 RATIO (10-20); Chloride 104 mmol/L (98-107); Creatinine, Serum 1.36 mg/dL (0.70-1.30); EST Glomerular Filtration Rate 59 mL/min (>60); Est Glom Filt Rate - Afr Amer 72 mL/min (>60); Globulin 3.3 g/dL (2.2-4.2); Glucose 99 mg/dL (74-106); Potassium 4.1 mmol/L (3.5-5.1); Protein, Total 7.4 g/dL (6.4-8.2); Sodium Level 138 mmol/L (136-145)
== END | disposition home or self-care (01) ==
LOC: MFPLAB 16:17
PROVIDERS: PCP Family Medicine; Visit Provider Family Medicine
DX: M54.12 Radiculopathy, cervical region (principal)
CPT/HCPCS: 36415; 80053; 85025

== ENCOUNTER → 2024-07-21 | Outpatient (CLI) | payer OTHER, SELFPAY ==
[2024-07-21 17:07] LABS: Absolute Lymphocyte Count 1.61 X10^3/uL (0.83-4.51); Absolute Neutrophil Count 2.9 X10^3/uL (2.0-7.7); Basophil# 0.03 X10^3/uL; Basophil% 0.6 % (0-1); Hematocrit 42.1 % (40-54); Hemoglobin 14.3 g/dL (13.0-16.5); Lymphocyte # 1.61 X10^3/ul (0.83-4.51); Lymphocyte % 31.8 % (19-41); Mean Corpuscular Volume 88.3 fL (80-94); Mean Platelet Vol. 9.3 fl (6.2-12.0); Monocyte# 0.45 X10^3/uL; Monocyte% 8.9 % (0-10); NRBC Flagged by Analyzer 0 % (0-5); Neutrophil # 2.86 X10^3/uL (2.7-7.7); Neutrophil % 56.5 % (47-70); Platelet Count 226 K/mm3 (150-450); RBC Distribution Width CV 12.2 % (11.6-14.6); RBC Distribution Width SD 39.3 fl (35.1-43.9); Red Blood Count 4.77 M/mm3 (4.6-6.2); White Blood Count 5.1 K/mm3 (4.4-11.0)
[2024-07-21 17:33] LABS: Anion Gap 3 (5-15); BUN 27 mg/dL (7-18); BUN/Creat Ratio 16.9 RATIO (10-20); Chloride 105 mmol/L (98-107); EST Glomerular Filtration Rate 49 mL/min (>60); Est Glom Filt Rate - Afr Amer 59 mL/min (>60); Glucose 102 mg/dL (74-106); Potassium 4.2 mmol/L (3.5-5.1); Sodium Level 138 mmol/L (136-145)
== END | disposition home or self-care (01) ==
PROVIDERS: PCP Family Medicine; Referring Provider Orthopaedic Surgery; Visit Provider Orthopaedic Surgery
DX: M50.123 Cervical disc disorder at C6-C7 level with radiculopathy (principal); I10 Essential (primary) hypertension
CPT/HCPCS: 36415; 80048; 85025; 87641

== ENCOUNTER → 2024-12-01 | Outpatient (CLI) | payer OTHER, SELFPAY ==
[2024-12-01 11:31] LABS: Cholesterol 212 mg/dL (<=200); High Density Lipoprotein 51 mg/dL; Low Density Lipoprotein Calc. 146 mg/dL; PSA,Total - Annual Screen 1.95 ng/mL (0.02-4.00); Triglycerides 77 mg/dL; Very Low Density Lipoprotein 15 mg/dL (5-40); cholesterol:hdl ratio screen 4.18
[2024-12-01 11:32] LABS: ALB/GLOB Ratio 1.7 RATIO (0.9-2.4); AST(SGOT) 25 U/L (<=37); Alanine Aminotransfer ALT/SGPT 18 U/L (<=46); Albumin, Serum 4.4 g/dL (3.5-5.0); Alkaline Phosphatase 64 U/L (40-129); Anion Gap 10 (5-15); BUN 28 mg/dL (4-19); BUN/Creat Ratio 24.3 RATIO (10-20); Calcium,Total 9.3 mg/dL (7.6-11.0); Carbon Dioxide 24.7 mmol/L (21.0-32.0); Chloride 105 mmol/L (98-108); Creatinine, Serum 1.14 mg/dL (0.70-1.20); EST Glomerular Filtration Rate 79 (>60); Globulin 2.6 g/dL (2.2-4.2); Glucose 91 mg/dL (70-99); Potassium 4.3 mmol/L (3.3-5.1); Sodium Level 140 mmol/L (133-145); Total Bilirubin 0.84 mg/dL (0.00-1.30)
[2024-12-01 12:01] LABS: Microalbumin,Random Urine < 12.0 mg/L (NO RANGE EST.); Microalbumin:Creatinine Ratio UNABLE TO CALCULATE mg/g CRE
== END | disposition home or self-care (01) ==
LOC: MTLAB 07:52
PROVIDERS: PCP Family Medicine; Referring Provider Family Medicine; Visit Provider Family Medicine
DX: I10 Essential (primary) hypertension (principal); Z12.5 Encounter for screening for malignant neoplasm of prostate
CPT/HCPCS: 36415; 80053; 80061; 82043; 82570; 84153; 84443; G0103

== ENCOUNTER 2025-04-14 07:40 | Day surgery (SDC) | payer OTHER, SELFPAY ==
[2025-04-14] VITALS (9 sets, daily range): BP systolic 114–154; BP diastolic 87–95; PULSE 52–61; RESP 16–61; TEMP 36.2–36.6; O2SAT 95–100; BMI 27.6
[2025-04-14] MEDS: Lactated Ringers 1,000 ML 15 ML IV (08:12)
--- NOTE | 2025-04-14 08:18 | PCM.PRE.AN2 ---
ASA Classification* ASA Classification ASA Classification: 2 Assessment & Plan Anesthesia* Anesthesia Assessment Anesthesia Assessment: Discussed sedation and/or anesthesia options, risks, benefits, and alternatives with patient/parents/legal guardian/POA. Questions invited. The patient/parents/legal guardian/POA seems to understand and agrees to proceed with anesthesia plan. Reviewed the physical assessment, medical history, allergy history and patient home medications list prior to surgery/procedure/anesthetic and documented any changes. Performed airway and anesthesia risk assessments. Anesthesia Type Anesthesia Type: MAC History Source History Obtained from:: Patient and Chart Anesthesia Focused Assessment* Temperature: 97.1 F Pulse Rate: 57 Blood Pressure: 154/88 Respiratory Rate: 20 Pulse Ox: 100 Oxygen Delivery Method: Room Air Airway Assessment Mouth opens: >3 cm Mallampati Score: I Teeth Condition: Caps/Crowns (Patient has a crown top right molar. It is tight.) and Partial (Patient has a bottom left prominent bridge. It is tight.) Neck Range of motion (ROM): Limited ROM (Slight Decrease) Labs Anesthesia Preop lab: CBC WBC 5.1 K/mm3 (4.4-11.0) 07/21/24 16:45 07/21/24 RBC 4.77 M/mm3 (4.6-6.2) 07/21/24 16:45 07/21/24 Hgb 14.3 g/dL (13.0-16.5) 07/21/24 16:45 07/21/24 Hct 42.1 % (40-54) 07/21/24 16:45 07/21/24 Plt Count 226 K/mm3 (150-450) 07/21/24 16:45 07/21/24 CHEMISTRY Potassium 4.3 mmol/L (3.3-5.1) 12/01/24 07:55 12/01/24 Sodium 140 mmol/L (133-145) 12/01/24 07:55 12/01/24 Magnesium 2.5 mg/dL (1.6-2.6) 04/18/23 13:34 04/18/23 BUN 28 mg/dL (4-19) H 12/01/24 07:55 12/01/24 Creatinine 1.14 mg/dL (0.70-1.20) 12/01/24 07:55 12/01/24 Glucose 91 mg/dL (70-99) 12/01/24 07:55 12/01/24 POC Glucose 71 mg/dL (74-106) L 04/27/23 11:27 04/27/23 TSH 2.430 uIU/mL (0.300-4.200) 12/01/24 07:55 12/01/24 COAG Pre-Assessment Diagnosis/Proposed Procedure Planned Operative Procedure(s): COLOSCOPY Anesthesia History 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 When Was Last Pacemaker Check QUESTION #4 FULL TEXT: You/Your Family Experience fever (hyperthermia) with Anesthesia Last Oral Intake Last Oral intake: Last Oral Intake NPO since 22:00 04/14/25 08:01 Meds taken in AM with sips of Yes 04/14/25 08:01 water? 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 - car park attendant Female No 04/13/25 11:27 HX of Motion Sickness No 04/13/25 11:27 HX of N/V After Surgery No 04/13/25 11:27 Non-Smoker Yes 04/13/25 11:27 Duration of Surgery greater No 04/13/25 11:27 than 60 minutes Number of Risk Factors 1 04/13/25 11:27 PONV Score Low Risk 04/13/25 11:27 Height & Weight Height & Weight: Anesthesia: Height & Weight Height 5 ft 11 in 04/14/25 08:01 Weight: 90 kg 04/14/25 08:01 Body Mass Index (BMI) 27.6 04/14/25 08:01 Respiratory Assessment Respiratory Assessment - car park attendant: Respiratory Tract Infection Hx - car park attendant Hx Respiratory Tract Infection No 04/13/25 11:27 STOP Sleep Apnea STOP Sleep Apnea - car park attendant: STOP Sleep Apnea - car park attendant Hx Hypertension Yes: CONTROLLED WITH MED 04/13/25 11:27 Hx Sleep Apnea No 04/13/25 11:27 CPAP BIPAP Do you snore loudly (louder No 04/13/25 11:27 than talking or can be heard Do you often feel tired/ No 04/13/25 11:27 fatigued/ sleepy during daytime? Has anyone observed you stop No 04/13/25 11:27 breathing during sleep? STOP Results Negative 04/13/25 11:27 QUESTION #5 FULL TEXT : Do you snore loudly (louder than talking or can be heard through closed doors)? 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 Specify any problems Hx of Preganancy in last 3 N/A 04/13/25 11:27 Months Nurse Filling Out Transfusion VCHRISTIN 04/13/25 11:27 & Questions: Date: 04/13/25 04/13/25 11:27 Time: 11:27 04/13/25 11:27 Patient unable to answer at this time (ie. confused, unrespo /Reproduction History /Reproductive History - car park attendant: /Reproductive Hx- car park attendant Hx Now No 04/13/25 11:27 Gestational Age (in weeks): EDC: Hx Hx Para Hx Section SAB No 04/13/25 11:27 Active Medications Active Medications: Current Medications Generic Name Dose Route Start Last Admin Trade Name Freq PRN Reason Stop Dose Admin Lactated Ringer's 1,000 mls @ 15 mls/hr 04/14/25 08:00 04/14/25 08:12 IV 15 mls/hr .Q48H MALINDA Administration PFSH Medical History Colon cancer Non-smoker Migraine Cardiac murmur Conductive hearing loss Thrombosed external hemorrhoid HTN (hypertension) Encounter for screening for malignant neoplasm of colon Home Medications ?Medication ?Instructions ?Recorded ?Last Taken ?Type bisoprolol fumarate 5 mg tablet 5 mg PO DAILY HTN 02/23/23 04/14/25 History lisinopril 20 mg tablet 20 mg PO DAILY HTN 02/23/23 04/13/25 History Allergy/AdvReac Type Severity Reaction Status Date / Time No Known Allergies Allergy Verified 04/14/25 07:59 Family History Father Hypertension Mother Hypertension Diabetes Surgical History Hx of fusion of cervical spine Hx of colonoscopy S/P colectomy [place] teeth extracted Social History household members: spouse and children number of children: 9 current occupational status: employed 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
--- NOTE | 2025-04-14 08:20 | H&P.OPEN ---
HPI - General HPI Narrative SHANELLE HARGROVE, is a 50 M who presents for surveillance colonoscopy. The patient had a colon cancer in 2022 that he had a left hemicolectomy for. Patient is doing well except for thrombosed hemorrhoid. He denies abdominal pain or blood in the stool. [facility] Medical History Colon cancer Non-smoker Migraine Cardiac murmur Conductive hearing loss Thrombosed external hemorrhoid HTN (hypertension) Encounter for screening for malignant neoplasm of colon Home Medications ?Medication ?Instructions ?Recorded ?Last Taken ?Type bisoprolol fumarate 5 mg tablet 5 mg PO DAILY HTN 02/23/23 04/14/25 History lisinopril 20 mg tablet 20 mg PO DAILY HTN 02/23/23 04/13/25 History Allergy/AdvReac Type Severity Reaction Status Date / Time No Known Allergies Allergy Verified 04/14/25 07:59 Family History Father Hypertension Mother Hypertension Diabetes Surgical History Hx of fusion of cervical spine Hx of colonoscopy S/P colectomy [place] teeth extracted Social History household members: spouse and children number of children: 9 current occupational status: employed 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 Smoking Status: Never smoker alcohol intake: never Past Medical/Surgical History Planned Operation Planned Operative Procedure(s): COLOSCOPY Previous Hospitalizations/Surgeries HX Hospitalizations: No Any Problems With Anesthesia: No You/Your Family Experience Fever (Hyperthermia) With Anes: No Cholinesterase deficiency: No Cardiovascular Hx Chest Pain within Last 2 months: No Hx Heart Attack: No Hx Hypertension: Yes (CONTROLLED WITH MED) Hx Cardiac Surgery/Stents/Etc.: No Respiratory Hx Chronic Obstructive Pulmonary Disease (COPD): No Hx Sleep Apnea: No Hx Respiratory Tract Infection/Cold (presently): No Do You Snore Loudly (louder than talking or can be heard): No Do You Often Feel Tired/ Fatigued/ Sleepy Dring Daytime?: No Has Anyone Observed You Stop Breathing During Sleep?: No Result (for STOP score): Negative Smoking Status: Never smoker Neurological Hx Parkinson's Disease: No Does patient have nerve stimulator: No Blood Disorder Hx Anemia: No Reproduction : No Genitourinary Hx Dialysis: No Musculoskeletal Hx Rheumatoid Arthritis: No Endocrine Hx Diabetes: No Thyroid Disease: No Psycho/Social Hx Depression: No Hx Dementia: No Miscellaneous Hx Cancer: No Recent Exposure to Contagious Disease: No Allergies No Known Allergies Allergy (Verified 04/14/25 07:59) Discharge Is Pt Admitted From a Skilled Nursing, or a [place] [facility]: No After D/C, Where Do you Plan to Go: Return Home Vital Signs Vital Signs Vital Signs: 04/14/25 08:01 04/14/25 08:01 Temperature 97.1 F L Temperature Source Temporal Pulse Rate 57 L Respiratory Rate 20 H Respiratory Pattern Normal Blood Pressure 154/88 H Blood Pressure Mean 110 Blood Pressure Source Monitor Blood Pressure Position Semi-Fowlers Blood Pressure Location Right Arm Pulse Ox 100 Oxygen Delivery Method Room Air Weight Weight: 198 lb 6.656 oz Body Mass Index (BMI) 27.6 Physical Exam Const alert and oriented x3 HEENT normocephalic Eyes PERRL Resp normal respiratory effort and normal air movement Cardio regular rate and regular rhythm GI soft to palpation, non-tender and non-distended Extremity normal to inspection Assessment & Plan Assessment/Plan (1) Colon cancer: QUALIFIERS: Colon location: descending Qualified Code(s): C18.6 - Malignant neoplasm of descending colon PLAN: Patient has a history of colon cancer 2 years ago and is here for his yearly surveillance colonoscopy. The patient also has a thrombosed hemorrhoid and I asked him to come into the office to address this and I can evacuate it. I explained endoscopy in detail to the patient. I explained the risks including but not limited to stroke or heart attack with anesthesia, perforation of the GI tract, bleeding, infection. I explained that any of these could necessitate further emergency surgery. The patient understands and all questions were answered sufficiently. The patient wishes to proceed with procedure. Manan Garza MD Pager: [facility] [address] [place] [address], [address] [place] [address] Office: Surgery Risks - Colonoscopy Risks Include but are not Limited To: Risks include but are not limited to: Bleeding, perforation requiring further surgery, inability to complete colonoscopy requiring barium enema.
[2025-04-14] MEDS: Lactated Ringers 500 ML IV (08:33)
--- NOTE | 2025-04-14 08:52 | OP.COLON_ITS ---
Patient Name: Zachary Armas Procedure Date: 04/14/2025 8:26 AM Date of : 1975 Age: 50 Procedure: Colonoscopy Indications: High risk colon cancer surveillance: Personal history of colon cancer Providers: Manan Garza MD Medicines: Propofol per Anesthesia Patient Profile: This is a 50 year old male. Refer to note in patient chart for documentation of history and physical. Last Colonoscopy: 1 year ago. Complications: No immediate complications. Procedure: Pre-Anesthesia Assessment: - Prior to the procedure, a History and Physical was performed, and patient medications and allergies were reviewed. The patient's tolerance of previous anesthesia was also reviewed. The risks and benefits of the procedure and the sedation options and risks were discussed with the patient. All questions were answered, and informed consent was obtained. Prior Anticoagulants: The patient has taken no anticoagulant or antiplatelet agents. After reviewing the risks and benefits, the patient was deemed in satisfactory condition to undergo the procedure. After I obtained informed consent, the scope was passed under direct vision. Throughout the procedure, the patient's blood pressure, pulse, and oxygen saturations were monitored continuously. The Colonoscope was introduced through the anus and advanced to the cecum, identified by appendiceal orifice and ileocecal valve. The colonoscopy was performed without difficulty. The patient tolerated the procedure well. The quality of the bowel preparation was good. The ileocecal valve, appendiceal orifice, and rectum were photographed. Scope In: 8:37:08 AM Scope Withdrawal Time 0 hours 6 minutes 18 seconds Scope Out: 8:48:21 AM Total Procedure Duration Time 0 hours 11 minutes 13 seconds Findings: The entire examined colon appeared normal on direct and retroflexion views. Impression: - The entire examined colon is normal on direct and retroflexion views. - No specimens collected. Recommendation: - Discharge patient to home. - Resume previous diet. - Continue present medications. - Repeat colonoscopy in 1 year for surveillance. Procedure Code(s): --- Professional --- 49766, Colonoscopy, flexible; diagnostic, including collection of specimen(s) by brushing or washing, when performed (separate procedure) Diagnosis Code(s): --- Professional --- Z85.038, Personal history of other malignant neoplasm of large intestine CPT copyright 2021 [employer]. All rights reserved. The codes documented in this report are preliminary and upon setup operator review may be revised to meet current compliance requirements. Manan Garza MD 04/14/2025 8:52:10 AM This report has been signed electronically. Number of Addenda: 0 Note Initiated On: 04/14/2025 8:26 AM
--- NOTE | 2025-04-14 08:52 | OP.PROVAT_ITS ---
04/14/2025 Jackson Sapp [address] [place] [address] Re : Colonoscopy procedure for Zachary Armas Dear Dr. Sapp This procedure was performed on Monday, April 14, 2025. My impressions and recommendations are as follows: Impressions : - The entire examined colon is normal on direct and retroflexion views. - No specimens collected. Recommendations : - Discharge patient to home. - Resume previous diet. - Continue present medications. - Repeat colonoscopy in 1 year for surveillance. My findings are described in the full procedure note, which is enclosed. If I can be of further assistance, please feel free to contact me at Doctor phone number(s): , Work: . Sincerely, Manan Garza MD 04/14/2025 8:52:10 AM This report has been signed electronically.
--- NOTE | 2025-04-14 09:19 | PCM.POST.ANE ---
Anesthesia: Postop Eval I Current Vital Signs Temperature: 97.1 F Pulse Rate: 61 Blood Pressure: 124/94 Respiratory Rate: 61 Pulse Ox: 97 Oxygen Delivery Method: Room Air Assessment Airway patent: Yes Spontaneous unlabored respirations: Yes nausea: No Vomiting: No Anesthesia Complication: No Fluid Hydration Crystalloid volume administer (ml): 500 Total IV fluid infused: 500 Progress Note Anesthesia document: Postop Eval 1 completed: Yes
--- NOTE | 2025-04-14 14:04 | POSTOPAN2_ITS ---
Anesthesia Postop Eval I Sum Postop Eval Completion status Anesthesia document: Postop Eval 1 completed: Yes Anesthesia Postop Eval I Summary Anesthesia Postop Eval I Summary: Anesthesia Postop Eval I: Assessment Summary Airway patent Yes 04/14/25 09:20 [email or web address] [email or web address] Spontaneous unlabored Yes 04/14/25 09:20 TOWNSHIP [email or web address] respirations Mental status nausea No 04/14/25 09:20 TOWNSHIP [email or web address] Vomiting No 04/14/25 09:20 TOWNSHIP [email or web address] Anesthesia Postop Eval I: Fluid Summary Crystalloid volume administer 500 04/14/25 09:20 TOWNSHIP [email or web address] (ml) Colloids volume administered ( ml) Blood Product volume administered (ml) Total IV fluid infused 500 04/14/25 09:20 TOWNSHIP [email or web address] Anesthesia Postop Eval I: Summary Notes Anesthesia Complication No 04/14/25 09:20 TOWNSHIP [email or web address] Anesthesia Complication Comment: Post-operative progress note Anesthesia: Postop Eval II Evaluation Mental status: Awake and Calm Pain Level: 0 nausea: No Vomiting: No Complications Anesthesia Complication: No
--- NOTE | 2025-04-14 14:04 | PCM.POSTANE2 ---
Anesthesia Postop Eval I Sum Postop Eval Completion status Anesthesia document: Postop Eval 1 completed: Yes Anesthesia Postop Eval I Summary Anesthesia Postop Eval I Summary: Anesthesia Postop Eval I: Assessment Summary Airway patent Yes 04/14/25 09:20 CONSTRUCTION [email or web address] Spontaneous unlabored Yes 04/14/25 09:20 CONSTRUCTION [email or web address].ACAR respirations Mental status nausea No 04/14/25 09:20 CONSTRUCTION [email or web address] Vomiting No 04/14/25 09:20 CONSTRUCTION [email or web address] Anesthesia Postop Eval I: Fluid Summary Crystalloid volume administer 500 04/14/25 09:20 CONSTRUCTION [email or web address] (ml) Colloids volume administered ( ml) Blood Product volume administered (ml) Total IV fluid infused 500 04/14/25 09:20 CONSTRUCTION [email or web address] Anesthesia Postop Eval I: Summary Notes Anesthesia Complication No 04/14/25 09:20 CONSTRUCTION [email or web address].ACAR Anesthesia Complication Comment: Post-operative progress note Anesthesia: Postop Eval II Evaluation Mental status: Awake and Calm Pain Level: 0 nausea: No Vomiting: No Complications Anesthesia Complication: No
== END 2025-04-14 09:22 | disposition home or self-care (01) ==
LOC: EN 07:41 → AC 07:42
PROVIDERS: PCP Family Medicine; Referring Provider Family Medicine; Visit Provider Surgery
PROC: 0DJD8ZZ Inspection of Lower Intestinal Tract, Via Natural or Artificial Opening Endoscopic (ICD-10-PCS; CPT 45378; principal; 2025-04-14 08:40)
DX: Z12.11 Encounter for screening for malignant neoplasm of colon (principal); I10 Essential (primary) hypertension; Z90.49 Acquired absence of other specified parts of digestive tract; Z79.899 Other long term (current) drug therapy; Z85.038 Personal history of other malignant neoplasm of large intestine
CPT/HCPCS: 45378

== ENCOUNTER 2025-07-03 20:32 | Emergency (ER) | payer OTHER, SELFPAY ==
[2025-07-03 20:33] VITALS: BP 139/93; PULSE 52; RESP 12; TEMP 36.7; O2SAT 98; BMI 27.8
--- NOTE | 2025-07-03 21:49 | EX.ED.GENINJ ---
HPI History of Present Illness Chief Complaint: Other, Pain/Inj Narrative Narrative: 50-year-old male presents with his because of injury to his nose that he sustained an hour or 2 ago. He states he was playing basketball with his adult son, when his son's elbow came down across the bridge of his nose. They state that his nose bled but stopped. They noticed that the bridge of his nose was deviated towards the left. He took 600 mg of ibuprofen prior to arrival. He states it does not hurt, but was concerned about the probability of his nose being fractured. He denies other injuries. No loss of consciousness. He does not take blood thinners. Past medical history includes hypertension. [facility] Medical History Colon cancer Non-smoker Migraine Cardiac murmur Conductive hearing loss Thrombosed external hemorrhoid HTN (hypertension) Encounter for screening for malignant neoplasm of colon Home Medications Medication Instructions Recorded Last Taken Type bisoprolol fumarate 5 mg tablet 5 mg PO DAILY HTN 02/23/23 04/14/25 History lisinopril 20 mg tablet 20 mg PO DAILY HTN 02/23/23 04/13/25 History Allergy/AdvReac Type Severity Reaction Status Date / Time No Known Allergies Allergy Verified 07/03/25 20:33 Family History Father Hypertension Mother Hypertension Diabetes Surgical History Hx of fusion of cervical spine Hx of colonoscopy S/P colectomy [place] teeth extracted Social History household members: spouse and children number of children: 9 current occupational status: employed 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 Positive epistaxis-resolved. No headache or neck pain. Denies other injuries. EXAM Physical Exam Narrative Exam Narrative: GCS 15. ABCs are intact. Cardiovascular examination reveals mild bradycardia. Lungs are clear to auscultation bilaterally. HEENT examination does show deviation of the nasal bridge towards the left with mild ecchymosis. No periorbital ecchymosis. Airway patent. No bleeding in posterior pharynx. No nasal septal hematoma. Neck soft and supple with full range of motion without pain. Const Vital Signs: 07/03/25 20:33 Temperature 98.1 F Temperature Source Oral Pulse Rate 52 L Respiratory Rate 12 Blood Pressure 139/93 H Blood Pressure Mean 108 Pulse Ox 98 Oxygen Delivery Method Room Air MDM MDM MDM Narrative Medical decision making narrative: The differential diagnosis includes but not limited to nasal contusion versus nasal fracture. They were concerned about having plastic surgery on-call to see if anyone could set his nose. He was told that this is not performed by the ED physician, and additionally there is no plastic surgeon on-call today. Regardless I do not feel that he needs emergent transfer. I did discuss with them CT imaging to see if he has a nasal fracture versus contusion which then would be ready for plastic surgery consultation as an outpatient. He declined any analgesics here in the emergency department, and declined prescription initially as well. I reviewed the CT of the facial bones, and there appears to be a nasal fracture. I have stressed the importance of follow-up with plastic surgery within the next 5 to 7 days. I was informed by the RN, that the patient and his eloped. He had not wanted any prescriptions for analgesics, and I had already stressed the importance of follow-up with plastic surgery. Disposition is eloped in stable condition. History & Record Review Discussion w/independent historian: Patient and Family (Spouse) Discharge Plan Triage Chief Complaint: Other, Pain/Inj ED Provider: Dirk Smith Dx/Rx/DC Orders Clinical Impression: Nasal fracture, Facial injury Instructions: ED Nose Fracture, with X-Ray Prescriptions: No Action lisinopril 20 mg tablet 20 mg PO DAILY bisoprolol fumarate 5 mg tablet 5 mg PO DAILY Primary Care Provider: Jackson Sapp Referrals: Jackson Sapp MD [Primary Care Provider, Family Practice] Al Rodriguez MD [Med Staff - Active Staff, Plastic Surgery] - As soon as possible Activity Restrictions/Additional Instructions: Ice the bridge of your nose for 10 to 15 minutes a few times a day. Tylenol or ibuprofen as needed for pain. Follow-up with plastic surgery within the next week. Return with new or worsening symptoms. Print Language: Sinhala Disposition Disposition: Elopement Discharge Date/Time: 07/03/25 22:38
--- OUTSIDE RECORDS SUMMARY | 2025-07-03 21:56 | XMS RPT_ITS | CCD ---
Author Organization [facility] Care Team Providers Care K9 Handler Name Role Phone Dr. Jackson Sapp Primary Care Provider Lupis Evangelista Attending Provider Unavailable Dr. Jackson Sapp Referring Provider Dr. Al Vasquez Attending Provider Dr. Al Vasquez Other Provider Jose Wagner MD Primary Care Provider JOSE WAGNER Primary Care Unavailable DEJAH RIVERO Referring Unavailable CELESTINO KIM Referring Unavailable JOSE WAGNER Primary Care Unavailable CELESTINO KIM Attending Unavailable JOSE WAGNER Primary Care Unavailable Dr. Jackson Sapp MD Primary Care Provider Dr. Jackson Sapp MD Attending Provider [phone] Dr. Jackson Sapp MD Referring Provider Dr. Jackson Sapp MD Primary Care Provider Dr. Jackson Sapp MD Referring Provider [phone] Greg AMADOR, Dr. Hinkle Attending Provider Greg AMADOR, Dr. Hinkle Other Provider Jackson Sapp Primary Care Unavailable Jimmy Diggs Referring Unavailable Jimmy Diggs Attending Unavailable Jackson Sapp Attending Unavailable Sekou, Jackson Primary Care Unavailable Sekou, Jackson Primary Care Unavailable Sekou, Jackson Referring Unavailable Jackson Sapp Attending Unavailable Sekou, Jackson Primary Care Unavailable Jackson Sapp Referring Unavailable Manan Garza Unavailable Manan Garza Consulting Unavailable Sekou, Jackson Primary Care Unavailable Sekou, Jackson Referring Unavailable Manan Garza Unavailable Medications Current Medications Medication Drug Class(es) Dates Sig (Normalized) Sig (Original) bisoprolol fumarate 5 mg oral tablet (7 sources) beta-Adrenergic Uyen Start: 08-09-2020 take 1 tablet by mouth once daily Bisoprolol Fumarate 5 mg tablet Active 5 mg PO DAILY February 23, 2023 12:00am HTN Comment on above: Take 5 mg by mouth o nce daily. lisinopril 20 mg oral tablet (7 sources) Angiotensin Converting Enzyme Inhibitor Start: 10-10-2020 take 1 tablet by mouth once daily Lisinopril 20 mg tablet Active 20 mg PO DAILY February 23, 2023 12:00am HTN Comment on above: Take 20 mg by mouth once daily. Completed/Discontinued Medications Medication Drug Class(es) Dates Sig (Normalized) Sig (Original) metroNIDAZOLE 500 mg oral tablet (2 sources) Nitroimidazole Antimicrobial Start: 04-16-2023 End: 04-28-2023 Metronidazole 500 mg tablet Discontinued 500 mg PO .COMPLEX 6 0 April 16, 2023 12:00am April 28, 2023 6:30am ANTIBIOTIC 500 mg PO Take 2 (two) tablets at 1300, 1500, 2300 neomycin sulfate 500 mg oral tablet (2 sources) Aminoglycoside Antibacterial Start: 04-16-2023 End: 04-28-2023 Neomycin 500 mg tablet Discontinued 500 mg PO .COMPLEX 6 0 April 16, 2023 12:00am April 28, 2023 6:30am pre-op antibiotics Take two (2) 500 mg tablets PO at 1300, 1500, 2300 Problems Active Problems Problem Classification Problem Date Documented Da te Episodic/Chronic Cancer of colon (7 sources) Malignant tumor of splenic flexure; Translations: [Malignant neoplasm of splenic flexure] Onset: 06-18-2023 05-11-2023 Chronic Essential hypertension (1 source) Essential (primary) hypertension; Translations: [Essential (primary) hypertension] Onset: 12-04-2024 Chronic Other screening for suspected conditions (not mental disorders or infectious disease) (5 sources) Patient encounter status; Translations: [Encounter for screening for malignant neoplasm of colon] Onset: 05-11-2025 02-23-2023 Episodic Residual codes; unclassified (1 source) Family history of cancer of colon; Translations: [Family history of malignant neoplasm of digestive organs] 06-11-2023 Episodic Residual codes; unclassified (1 source) Family history of breast cancer; Translations: [Family history of malignant neoplasm of breast] 06-11-2023 Episodic Past or Other Problems Problem Classification Problem Date Documented Da te Episodic/Chronic Residual codes; unclassified (1 source) Family history of malignant neoplasm of digestive organs; Translations: [Family history of colon cancer] Onset: 06-18-2023 Episodic Residual codes; unclassified (1 source) Family history of malignant neoplasm of breast; Translations: [Family history of breast cancer] Onset: 06-18-2023 Episodic Spondylosis; intervertebral disc disorders; other back problems (2 sources) Cervical disc disorder at C6-C7 level with radiculopathy; Translations: [Radiculopathy, cervical region] Onset: 06-19-2024 Episodic Sprains and strains (4 sources) Sprain of foot; Translations: [Unspecified sprain of unspecified foot, initial encounter] Onset: 12-26-2006 12-26-2006 Episodic Results Test Name Value Interpretation Reference Range Facility Colonoscopy Reporton 025 Colonoscopy Report [facility] Medical Records Department [address] [place] [id number] Colonoscopy Report MR#: [id number] Acct: [id number] Name: ZACHARY HARGROVE Rep #: [id number] : 1975 50 From: Manan Garza MD PCP: Dr. Jackson Sapp MD Status:[facility] Patient Name: Zachary Hargrove Procedure Date: 04/14/2025 8:26 AM Date of : 1975 Age: 50 Procedure: Colonoscopy Indications: High risk colon cancer surveillance: Personal history of colon cancer Providers: Manan Garza MD Medicines: Propofol per Anesthesia Patient Profile: This is a 50 year old male. Refer to note in patient chart for documentation of history and physical. Last Colonoscopy: 1 year ago. Complications: No immediate complications. Procedure: Pre-Anesthesia Assessment: - Prior to the procedure, a History and Physical was performed, and patient medications and allergies were reviewed. The patient's tolerance of previous anesthesia was also reviewed. The risks and benefits of the procedure and the sedation options and risks were discussed with the patient. All questions were answered, and informed consent was obtained. Prior Anticoagulants: The patient has taken no anticoagulant or antiplatelet agents. After reviewing the risks and benefits, the patient was deemed in satisfactory condition to undergo the procedure. After I obtained informed consent, the scope was passed under direct vision. Throughout the procedure, the patient's blood pressure, pulse, and oxygen saturations were monitored continuously. The Colonoscope was introduced through the anus and advanced to the cecum, identified by appendiceal orifice and ileocecal valve. The colonoscopy was performed without difficulty. The patient tolerated the procedure well. The quality of the bowel preparation was good. The ileocecal valve, appendiceal orifice, and rectum were photographed. Scope In: 8:37:08 AM Scope Withdrawal Time 0 hours 6 minutes 18 seconds Scope Out: 8:48:21 AM Total Procedure Duration Time 0 hours 11 minutes 13 seconds Findings: The entire examined colon appeared normal on direct and retroflexion views. Impression: - The entire examined colon is normal on direct and retroflexion views. - No specimens collected. Recommendation: - Discharge patient to home. - Resume previous diet. - Continue present medications. - Repeat colonoscopy in 1 year for surveillance. Procedure Code(s): --- Professional --- 18234, Colonoscopy, flexible; diagnostic, including collection of specimen(s) by brushing or washing, when performed (separate procedure) Diagnosis Code(s): --- Professional --- Z85.038, Personal history of other malignant neoplasm of large intestine CPT copyright 2021 [employer]. All rights reserved. The codes documented in this report are preliminary and upon electrical controls technician review may be revised to meet current compliance requirements. Manan Garza MD 04/14/2025 8:52:10 AM This report has been signed electronically. Number of Addenda: 0 Note Initiated On: 04/14/2025 8:26 AM 04/14/25 0852 Date Manan Garza MD Cosigner Signature: Date (if indicated) CC: Dr. Manan Garza MD; Dr. Jackson Sapp MD Date Dictated: 04/14/25825 Date Transcribed: Grades 1 6 Tutor: DIEGO Signed [facility] MR/OP.PROVATon 04-14-2025 MR/OP.[facility] Medical Records Department [address] [place] [address] Provation Physician Letter MR#: [id number] Acct: [id number] Name: ZACHARY HARGROVE Rep #: [id number] : 1975 50 From: Manan Garza MD PCP: Dr. Jackson aSpp MD Status:[facility] 04/14/2025 Jackson Sapp [address] [place] [address] Re : Colonoscopy procedure for Zachary Hargrove Dear Dr. Sapp This procedure was performed on Monday, April 14, 2025. My impressions and recommendations are as follows: Impressions : - The entire examined colon is normal on direct and retroflexion views. - No specimens collected. Recommendations : - Discharge patient to home. - Resume previous diet. - Continue present medications. - Repeat colonoscopy in 1 year for surveillance. My findings are described in the full procedure note, which is enclosed. If I can be of further assistance, please feel free to contact me at Doctor phone number(s): , Work: . Sincerely, Manan Garza MD 04/14/2025 8:52:10 AM This report has been signed electronically. 04/14/25851 Date Manan Garza MD Cosigner Signature: Date (if indicated) CC: Dr. Manan Garza MD; Dr. Jackson Sapp MD Date Dictated: 04/14/25825 Date Transcribed: Grades 1 6 Tutor: DIEGO Signed [facility] MR/POSTOP.ANEsol 04-14-2025 MR/POSTOP.ANE [facility] Medical Records Department [address] [place] [address] Anesthesia Postop Eval I 04/14/25 0919 MR#: [id number] Acct: [id number] Name: ZACHARY HARGROVE Rep #: [id number] : 1975 50 From: Vijay Denson CRNA PCP: Dr. Jackson Sapp MD Status:[facility] Y Race: C Location: [place] [address] Anesthesia: Postop Eval I Current Vital Signs Temperature: 97.1 F Pulse Rate: 61 Blood Pressure: 124/94 Respiratory Rate: 61 Pulse Ox: 97 Oxygen Delivery Method: Room Air Assessment Airway patent: Yes Spontaneous unlabored respirations: Yes nausea: No Vomiting: No Anesthesia Complication: No Fluid Hydration Crystalloid volume administer (ml): 500 Total IV fluid infused: 500 Progress Note Anesthesia document: Postop Eval 1 completed: Yes 04/14/25919 Date Vijay Denson AUTOMATIC STACKER Cosigner Signature: Date CC: Signed Normal [facility] MR/VEUEXFGU3pi 04-14-2025 [facility] Medical Records Department [address] [place] [place] [address] Anesthesia Postop Eval II 04/14/25 1404 MR#: [id number] Acct: [id number] Name: ZACHARY HARGROVE Rep #: [id number] : 1975 50 From: Brii Felix CRNA PCP: Dr. Jackson Sapp MD Status:[facility] Y Race: C Location: [place] Anesthesia Postop Eval I Sum Postop Eval Completion status Anesthesia document: Postop Eval 1 completed: Yes Anesthesia Postop Eval I Summary Anesthesia Postop Eval I Summary: Anesthesia Postop Eval I: Assessment Summary Airway patent Yes 04/14/25 09:20 AUTOMATIC STACKER.ACAR Spontaneous unlabored Yes 04/14/25 09:20 AUTOMATIC STACKER.ACAR respirations Mental status nausea No 04/14/25 09:20 AUTOMATIC STACKER.ACAR Vomiting No 04/14/25 09:20 AUTOMATIC STACKER.ACAR Anesthesia Postop Eval I: Fluid Summary Crystalloid volume administer 500 04/14/25 09:20 AUTOMATIC STACKER.ACAR (ml) Colloids volume administered ( ml) Blood Product volume administered (ml) Total IV fluid infused 500 04/14/25 09:20 AUTOMATIC STACKER.ACAR Anesthesia Postop Eval I: Summary Notes Anesthesia Complication No 04/14/25 09:20 AUTOMATIC STACKER.ACAR Anesthesia Complication Comment: Post-operative progress note Anesthesia: Postop Eval II Evaluation Mental status: Awake and Calm Pain Level: 0 nausea: No Vomiting: No Complications Anesthesia Complication: No 04/14/25 1404 Date Brii Felix AUTOMATIC STACKER Cosigner Signature: Date CC: Signed Normal [facility] Albumin DL <= 20 mg/L (U) [M ass/Vol]Ordered By: Jackson Sapp on 12-01-2024 Urine Random Microalbumin < 12.0 mg/L NO RANGE EST. [facility] Anion gap in Serum or Plasma Ordered By: Jackson Sapp on 12-01-2024 Anion gap [Moles/Vol] 10 mmol/L 01-01 [facility] BUN/creatinine ratioOrdered By: Jackson Sapp on 12-01-2024 Urea nitrogen/Creatinine [Mass ratio] 24.3 mg/mg High - [facility] Bilirubin, totalOrdered By: Jackson Sapp on 12-01-2024 Bilirubin [Mass/Vol] 0.84 mg/dL 0.00-1.30 [facility] Calculated very low density lipoprotein (VLDL) cholesterol measurementOrdered By: Jackson Sapp on 12-01-2024 VLDL Cholesterol 15 mg/dL 5-40 [facility] Carbon dioxide, total [Moles /volume] in Central venous bloodOrdered By: Jackson Sapp on 12-01-2024 CO2 [Moles/Vol] 24.7 mmol/L 21.0-32.0 [facility] Chloride assayOrdered By: Elliot Sapp on 12-01-2024 Chloride [Moles/Vol] 105 mmol/L 98-108 [facility] Comprehensive Metabolic Prof ilon 12-01-2024 Albumin [Mass/Vol] 4.4 g/dL Normal 3.5-5.0 [facility] Comment on above: Order Comment: Order Date: 11/21/24 Order Info: [id number] - CMP Order Info: - LIPID Order Info: [id number] - TSH Order Info: [id number] - PSA Performed By: #### L 500.4050, L500.4100, L501.9520, L501.9910 #### [facility] [address] [place], [address] Albumin/Globulin [Mass ratio] 1.7 {ratio} Normal 0.9-2.4 [facility] Comment on above: Order Comment: Order Date: 11/21/24 Order Info: [id number] - CMP Order Info: - LIPID Order Info: [id number] - TSH Order Info: [id number] - PSA Performed By: #### L 500.4050, L500.4100, L501.9520, L501.9910 #### [facility] [address] [place], [address] ALK PHOS 64 U/L Normal 40-129 [facility] Comment on above: Order Comment: Order Date: 11/21/24 Order Info: 07 - CMP Order Info: - LIPID Order Info: [id number] - TSH Order Info: [id number] - PSA Performed By: #### L 500.4050, L500.4100, L501.9520, L501.9910 #### [facility] [address] [place], [address] ALT [Catalytic activity/Vol] 18 U/L Normal <=46 [facility] Comment on above: Order Comment: Order Date: 11/21/24 Order Info: 785-1 - CMP Order Info: - LIPID Order Info: [id number] - TSH Order Info: 1 - PSA Performed By: #### L 500.4050, L500.4100, L501.9520, L501.9910 #### [facility] [address] [place], [address] AST [Catalytic activity/Vol] 25 U/L Normal <=37 [facility] Comment on above: Order Comment: Order Date: 11/21/24 Order Info: 785- - CMP Order Info: - LIPID Order Info: [id number] - TSH Order Info: 2856-08 - PSA Performed By: #### L 500.4050, L500.4100, L501.9520, L501.9910 #### [facility] [address] [place], [address] Bilirubin [Mass/Vol] 0.84 mg/dL Normal 0.00-1.30 [facility] Comment on above: Order Comment: Order Date: 11/21/24 Order Info: 785-08 - CMP Order Info: - LIPID Order Info: 3015-10 - TSH Order Info: 2856-08 - PSA Performed By: #### L 500.4050, L500.4100, L501.9520, L501.9910 #### [facility] [address] [place], [address] BUN/CRE 24.3 RATIO High 10-20 [facility] Comment on above: Order Comment: Order Date: 11/21/24 Order Info: 785- - CMP Order Info: - LIPID Order Info: 3015-10 - TSH Order Info: 2856-08 - PSA Performed By: #### L 500.4050, L500.4100, L501.9520, L501.9910 #### [facility] [address] [place], [address] Calcium [Mass/Vol] 9.3 mg/dL Normal 7.6-11.0 [facility] Comment on above: Order Comment: Order Date: 11/21/24 Order Info: 86-1 - CMP Order Info: [id number] - LIPID Order Info: 3 - TSH Order Info: 2856-1 - PSA Performed By: #### L 500.4050, L500.4100, L501.9520, L501.9910 #### [facility] [address] [place], [address] Chloride [Moles/Vol] 105 mmol/L Normal 98-108 [facility] Comment on above: Order Comment: Order Date: 11/21/24 Order Info: 785-1 - CMP Order Info: - LIPID Order Info: 3015-10 - TSH Order Info: 1 - PSA Performed By: #### L 500.4050, L500.4100, L501.9520, L501.9910 #### [facility] [address] [place], [address] CO2 [Moles/Vol] 24.7 mmol/L Normal 21.0-32.0 [facility] Comment on above: Order Comment: Order Date: 11/21/24 Order Info: 785- - CMP Order Info: [id number] - LIPID Order Info: 3 - TSH Order Info: 2857-1 - PSA Performed By: #### L 500.4050, L500.4100, L501.9520, L501.9910 #### [facility] [address] [place], [address] Creatinine [Mass/Vol] 1.14 mg/dL Normal 0.70-1.20 [facility] Comment on above: Order Comment: Order Date: 11/21/24 Order Info: 785-1 - CMP Order Info: [id number] - LIPID Order Info: 3 - TSH Order Info: 2857-1 - PSA Performed By: #### L 500.4050, L500.4100, L501.9520, L501.9910 #### [facility] [address] [place], [place], [address] GAP 10 Normal 5-15 [facility] Comment on above: Order Comment: Order Date: 11/21/24 Order Info: 785- - CMP Order Info: - LIPID Order Info: [id number] - TSH Order Info: [id number] - PSA Performed By: #### L 500.4050, L500.4100, L501.9520, L501.9910 #### [facility] [address] [facility] [place], [place], [address] GFR/1.73 sq M.predicted among non-blacks MDRD (S/P/Bld) [Vol rate/Area] 79 mL/min/{1.73_m2} Normal >60 [facility] Comment on above: Order Comment: Order Date: 11/21/24 Order Info: 785-08 - CMP Order Info: - LIPID Order Info: 3015-10 - TSH Order Info: 2856-08 - PSA Result Comment: mL/m in/1.73m2 CKD-EPI Creatinine Equation (2020) Performed By: #### L 500.4050, L500.4100, L501.9520, L501.9910 #### [facility] [address] [place], [address] Globulin (S) [Mass/Vol] 2.6 g/dL Normal 2.2-4.2 [facility] Comment on above: Order Comment: Order Date: 11/21/24 Order Info: 785-08 - CMP Order Info: - LIPID Order Info: 3015-10 - TSH Order Info: 2856-08 - PSA Performed By: #### L 500.4050, L500.4100, L501.9520, L501.9910 #### [facility] [address] [place], [address] Glucose [Mass/Vol] 91 mg/dL Normal 70-99 [facility] Comment on above: Order Comment: Order Date: 11/21/24 Order Info: 86-1 - CMP Order Info: [id number] - LIPID Order Info: 3 - TSH Order Info: 2856-1 - PSA Performed By: #### L 500.4050, L500.4100, L501.9520, L501.9910 #### [facility] [address] [place], [address] Potassium [Moles/Vol] 4.3 mmol/L Normal 3.3-5.1 [facility] Comment on above: Order Comment: Order Date: 11/21/24 Order Info: 785-08 - CMP Order Info: - LIPID Order Info: 3015-10 - TSH Order Info: 2856-08 - PSA Performed By: #### L 500.4050, L500.4100, L501.9520, L501.9910 #### [facility] [address] [place], [address] Sodium [Moles/Vol] 140 mmol/L Normal 133-145 [facility] Comment on above: Order Comment: Order Date: 11/21/24 Order Info: 07-1 - CMP Order Info: [id number] - LIPID Order Info: 3015-10 - TSH Order Info: 2856-08 - PSA Performed By: #### L 500.4050, L500.4100, L501.9520, L501.9910 #### [facility] [address] [place], [address] T PROT 7.0 g/dL Normal 5.9-8.4 [facility] Comment on above: Order Comment: Order Date: 11/21/24 Order Info: 0786-1 - CMP Order Info: [id number] - LIPID Order Info: 3 - TSH Order Info: 1 - PSA Performed By: #### L 500.4050, L500.4100, L501.9520, L501.9910 #### [facility] [address] [place], [place], [address] Urea nitrogen [Mass/Vol] 28 mg/dL High 4-19 [facility] Comment on above: Order Comment: Order Date: 11/21/24 Order Info: 0786 - CMP Order Info: [id number] - LIPID Order Info: 3015-10 - TSH Order Info: 1 - PSA Performed By: #### L 500.4050, L500.4100, L501.9520, L501.9910 #### [facility] [address] [place], [place], [address] Creatinine Unsp time (U) [Ma ss/Vol]Ordered By: Jackson Sapp on 12-01-2024 Creatinine (U) [Mass/Vol] 208.00 mg/dL 39.00-259.00 [facility] GFR/1.73 sq M.predicted edi g non-blacks MDRD (S/P/Bld) [Vol rate/Area]Ordered By: Jackson Sapp on 12-01-2024 Estimated GFR (MDRD) Non-Af Amer 79 >60 [facility] Comment on above: mL/min/1.73m2 CKD-EP I Creatinine Equation (2020) LDL calc ser/plasOrdered By: Jackson Sapp on 12-01-2024 LDL Cholesterol, Calculated 146 mg/dL [facility] Comment on above: Vgdpeynzkn=049-284 m g/dL & Higher Zqef=773 mg/dL or greater Laboratory - Chemistry and C hemistry - challengeOrdered By: Jackson Sapp on 12-01-2024 AST [Catalytic activity/Vol] 25 U/L <38 [facility] Lipid Profileon 12-01-2024 CHOL:HDL 4.18 Normal [facility] Comment on above: Order Comment: Order Date: 11/21/24 Order Info: 0786- - CMP Order Info: [id number] - LIPID Order Info: 3015-10 - TSH Order Info: 2856-08 - PSA Performed By: #### L 500.4050, L500.4100, L501.9520, L501.9910 #### [facility] [address] [place], [address] Cholesterol [Mass/Vol] 212 mg/dL High <=200 [facility] Comment on above: Order Comment: Order Date: 11/21/24 Order Info: 0786-1 - CMP Order Info: [id number] - LIPID Order Info: 3 - TSH Order Info: [id number] - PSA Result Comment: Chol esterol level, Desirable <200 mg/dL Borderline high cholesterol 200-239 mg/dL High cholesterol >=240 mg/dL Recommendations of the NCEP Adult Treatment Panel for the following risk-cutoff thresholds for the [place] population. Performed By: #### L 500.4050, L500.4100, L501.9520, L501.9910 #### [facility] [address] [place], [address] Cholesterol in HDL [Mass/Vol] 51 mg/dL Normal [facility] Comment on above: Order Comment: Order Date: 11/21/24 Order Info: 0786-1 - CMP Order Info: [id number] - LIPID Order Info: 3015-10 - TSH Order Info: [id number] - PSA Result Comment: [place] onal Cholesterol Education Program (NCEP) guidelines: <40 mg/dL: Low HDL-cholesterol (major risk factor for CHD) >= 60 mg/dL: High HDL-cholesterol (negative risk factor for CHD) HDL-cholesterol is affected by a number of factors, e.g. smoking, exercise, hormones, sex and age. Performed By: #### L 500.4050, L500.4100, L501.9520, L501.9910 #### [facility] [address] [place], [address] Cholesterol in LDL [Mass/Vol] 146 mg/dL Normal [facility] Comment on above: Order Comment: Order Date: 11/21/24 Order Info: 0786-1 - CMP Order Info: [id number] - LIPID Order Info: 3015-10 - TSH Order Info: 2856-08 - PSA Result Comment: Bord gfntza=824-347 mg/dL Higher Zvbk=497 mg/dL or greater Performed By: #### L 500.4050, L500.4100, L501.9520, L501.9910 #### [facility] [address] [place], [address] Cholesterol in VLDL [Mass/Vol] 15 mg/dL Normal 5-40 [facility] Comment on above: Order Comment: Order Date: 11/21/24 Order Info: 0786-1 - CMP Order Info: [id number] - LIPID Order Info: 3016-3 - TSH Order Info: 1 - PSA Performed By: #### L 500.4050, L500.4100, L501.9520, L501.9910 #### [facility] [address] [place], [address] Triglyceride [Mass/Vol] 77 mg/dL Normal [facility] Comment on above: Order Comment: Order Date: 11/21/24 Order Info: 0786-1 - CMP Order Info: [id number] - LIPID Order Info: 63 - TSH Order Info: 2856-08 - PSA Result Comment: The drugs N-Acetylcysteine and Metamizole may falsely depress this assay. Normal range: <150 mg/dL Borderline High: 150-199 mg/dL High: 200-499 mg/dL Very High: >500 mg/dL Performed By: #### L 500.4050, L500.4100, L501.9520, L501.9910 #### [facility] [address] [place], [address] Microalb:Creat Ratio,Random URon 12-01-2024 Creatinine [Mass/Vol] 208.00 mg/dL Normal 39.00-259.00 [facility] Comment on above: Order Comment: PER I NTERFACE COMMENT-MIACRE Performed By: #### L 502.0250 #### [facility] [address] [place], [address] MALB:CREAT UNABLE TO CALCULATE Normal [facility] Comment on above: Order Comment: PER I NTERADAN COMMENT-MIACRE Performed By: #### L 502.0250 #### [facility] [address] [place], [address] MICROALBUMIN,UR < 12.0 Normal NO RANGE EST. [facility] Comment on above: Order Comment: PER I NTERFANOVA COMMENT-MIACRE Performed By: #### L 502.0250 #### [facility] [address] [place], [address] Microalbumin/creat ratio urO rdered By: Jackson Sapp on 12-01-2024 Urine Microalbumin/Creatinine Ratio UNABLE TO CALCULATE mg/g CRE [facility] PSA, total screeningOrdered By: Jackson Sapp on 12-01-2024 Prostate Specific Antigen Screen 1.95 ng/mL 0.02-4.00 [facility] Comment on above: This test was perfor med using the [employer] tPSA method. Measured values of a patient sample can vary depending on the testing procedure used. PSA values determined on patient samples by different testing procedures cannot be used interchangeably. If there is a change in PSA assays while monitoring therapy, sequential testing should be performed to confirm baseline values. PSA,Total - Annual Screenon 12-01-2024 PSA,TOT SCREEN 1.95 ng/mL Normal 0.02-4.00 [facility] Comment on above: Order Comment: Order Date: 11/21/24Order Info: [id number] - CMPOrder Info: [id number] - LIPIDOrder Info: [id number] - TSHOrder Info: [id number] - PSA Result Comment: This test was performed using the [employer] tPSA method. Measured values of a patient??sample can vary depending on the testing procedure used. PSA values determined on patient samples by different testing procedures cannot be used interchangeably. If there is a change in PSA assays while monitoring therapy, sequential testing should be performed to confirm baseline values. Performed By: #### L 500.4050, L500.4100, L501.9520, L501.9910 ####[facility] [address] [place], [address] Potassium (Unsp spec) [Mass/ Vol]Ordered By: Jackson Sapp on 12-01-2024 Potassium [Moles/Vol] 4.3 mmol/L 3.3-5.1 [facility] Screening total cholesterol/ high density lipoprotein (HDL) cholesterol ratioOrdered By: Jackson Sapp on 12-01-2024 Cholesterol.total/Jeni sterol in HDL [Mass ratio] 4.18 {ratio} [facility] Serum creatinine measurement (mass/volume)Ordered By: Jackson Sapp on 12-01-2024 Creatinine [Mass/Vol] 1.14 mg/dL 0.70-1.20 [facility] Serum globulin measurementOr dered By: Jackson Sapp on 12-01-2024 Globulin (S) [Mass/Vol] 2.6 g/dL 2.2-4.2 [facility] Serum glucose measurement (m ass/volume)Ordered By: Jackson Sapp on 12-01-2024 Glucose [Mass/Vol] 91 mg/dL 70-99 [facility] Serum or plasma alanine mccormack otransferase (ALT) measurementOrdered By: Jackson Sapp on 12-01-2024 ALT [Catalytic activity/Vol] 18 U/L <47 [facility] Serum or plasma albumin angelique urement (mass/volume)Ordered By: Jackson Sapp on 12-01-2024 Albumin [Mass/Vol] 4.4 g/dL 3.5-5.0 [facility] Serum or plasma albumin/glob ulin mass ratioOrdered By: Jackson Sapp on 12-01-2024 Albumin/Globulin [Mass ratio] 1.7 {ratio} 0.9-2.4 [facility] Serum or plasma alkaline kandi sphatase measurementOrdered By: Jackson Sapp on 12-01-2024 ALP [Catalytic activity/Vol] 64 U/L 40-129 [facility] Serum or plasma calcium angelique urement (mass/volume)Ordered By: Jackson Sapp on 12-01-2024 Calcium [Mass/Vol] 9.3 mg/dL 7.6-11.0 [facility] Serum or plasma cholesterol in HDL measurement (mass/volume)Ordered By: Jackson Sapp on 12-01-2024 Cholesterol in HDL [Mass/Vol] 51 mg/dL >40 [facility] Comment on above: National Cholesterol Education Program (NCEP) guidelines:<40 mg/dL: Low HDL-cholesterol (major risk factor for CHD)>= 60 mg/dL: High HDL-cholesterol (negative risk factor for CHD)HDL-cholesterol is affected by a number of factors, e.g. smoking, exercise, hormones, sex and age. Serum or plasma cholesterol measurement (mass/volume)Ordered By: Jackson Sapp on 12-01-2024 Cholesterol [Mass/Vol] 212 mg/dL High <201 [facility] Comment on above: Cholesterol level, D esirable <200 mg/dLBorderline high cholesterol 200-239 mg/dLHigh cholesterol >=240 mg/dLRecommendations of the NCEP Adult Treatment Panel for the following risk-cutoff thresholds for the [place] population. Serum or plasma urea nitroge n measurement (mass/volume)Ordered By: Jackson Sapp on 12-01-2024 Urea nitrogen [Mass/Vol] 28 mg/dL High 4-19 [facility] Sodium levelOrdered By: Jackson Sapp on 12-01-2024 Sodium [Moles/Vol] 140 mmol/L 133-145 [facility] TSH DL <= 0.005 mIU/L QnOrde red By: Jackson Sapp on 12-01-2024 Thyroid Stimulating Hormone (TSH) 2.430 uIU/mL 0.300-4.200 [facility] Thyroid Stim Hormone (TSH)on 12-01-2024 TSH 2.430 uIU/mL Normal 0.300-4.200 [facility] Comment on above: Order Comment: Order Date: 11/21/24Order Info: [id number] - CMPOrder Info: [id number] - LIPIDOrder Info: [id number] - TSHOrder Info: [id number] - PSA Performed By: #### L 500.4050, L500.4100, L501.9520, L501.9910 ####[facility] [address] [place], [place], [address] Total proteinOrdered By: Amy Sapp on 12-01-2024 Protein [Mass/Vol] 7.0 g/dL 5.9-8.4 [facility] Triglycerides measurementOrd ered By: Jackson Sapp on 12-01-2024 Triglyceride [Mass/Vol] 77 mg/dL <199 [facility] Comment on above: The drugs N-Acetylcy steine and Metamizole may falsely depress this assay. Normal range: <150 mg/dLBorderline High: 150-199 mg/dLHigh: 200-499 mg/dLVery High: >500 mg/dL Basic Metabolic Profile (BMP )on 07-21-2024 BUN/CRE 16.9 RATIO Normal 10-20 [facility] Comment on above: Performed By: #### L 500.2500, L100.0100, M8200.1000 ####[facility] [address] [place], [address] CA,Total 9.0 mg/dL Normal 8.5-10.1 [facility] Comment on above: Performed By: #### L 500.2500, L100.0100, M8200.1000 ####[facility] [address] [place], [address] Chloride [Moles/Vol] 105 mmol/L Normal 98-107 [facility] Comment on above: Performed By: #### L 500.2500, L100.0100, M8200.1000 ####[facility] [address] [place], [address] CO2 [Moles/Vol] 30.0 mmol/L Normal 21.0-32.0 [facility] Comment on above: Performed By: #### L 500.2500, L100.0100, M8200.1000 ####[facility] [address] [place], [address] Creatinine [Mass/Vol] 1.60 mg/dL High 0.70-1.30 [facility] Comment on above: Result Comment: The validity of the calculated GFR GFRAA in patients over 70 years has not been determined. Clinical correlation is essential. Performed By: #### L 500.2500, L100.0100, M8200.1000 ####[facility] [address] [place], [address] EST GFR - AA 59 mL/min Low >60 [facility] Comment on above: Result Comment: Afri can Pakistani GFR Calc Performed By: #### L 500.2500, L100.0100, M8200.1000 ####[facility] [address] [place], [address] GAP 3 Low 5-15 [facility] Comment on above: Performed By: #### L 500.2500, L100.0100, M8200.1000 ####[facility] [address] [place], [address] GFR/1.73 sq M.predicted among non-blacks MDRD (S/P/Bld) [Vol rate/Area] 49 mL/min/{1.73_m2} Low >60 [facility] Comment on above: Result Comment: Non- GFR Calc Performed By: #### L 500.2500, L100.0100, M8200.1000 ####[facility] [address] [place], [address] Glucose [Mass/Vol] 102 mg/dL Normal 74-106 [facility] Comment on above: Result Comment: Fast ing Glucose result from 100 to 125 mg/dL suggests IMPAIRED HOMEOSTASIS per A.D.A. criteria. Performed By: #### L 500.2500, L100.0100, M8200.1000 ####[facility] [address] [place], [address] Potassium [Moles/Vol] 4.2 mmol/L Normal 3.5-5.1 [facility] Comment on above: Performed By: #### L 500.2500, L100.0100, M8200.1000 ####[facility] [address] [place], [address] Sodium [Moles/Vol] 138 mmol/L Normal 136-145 [facility] Comment on above: Performed By: #### L 500.2500, L100.0100, M8200.1000 ####[facility] [address] [place], [address] Urea nitrogen [Mass/Vol] 27 mg/dL High 7-18 [facility] Comment on above: Performed By: #### L 500.2500, L100.0100, M8200.1000 ####[facility] [address] [place], [address] CBC W/Diff, Automatedon 12-0 2-2023 Absolute Lymph 1.61 X10 3/uL Normal 0.83-4.51 [facility] Comment on above: Performed By: #### L 500.2500, L100.0100, M8200.1000 ####[facility] [address] [place], [address] Absolute Neut 2.9 X10 3/uL Normal 2.0-7.7 [facility] Comment on above: Performed By: #### L 500.2500, L100.0100, M8200.1000 ####[facility] [address] [place], [address] Basophils/100 WBC (Bld) 0.6 % Normal 0-1 [facility] Comment on above: Performed By: #### L 500.2500, L100.0100, M8200.1000 ####[facility] [address] [place], [address] Eosinophils/100 WBC (Bld) 2.0 % Normal 0-5 [facility] Comment on above: Performed By: #### L 500.2500, L100.0100, M8200.1000 ####[facility] [address] [place], [address] Erythrocyte distribution width (RBC) [Ratio] 12.2 % Normal 11.6-14.6 [facility] Comment on above: Performed By: #### L 500.2500, L100.0100, M8200.1000 ####[facility] [address] [place], [address] Hematocrit (Bld) [Volume fraction] 42.1 % Normal 40-54 [facility] Comment on above: Performed By: #### L 500.2500, L100.0100, M8200.1000 ####[facility] [address] [place], [address] Hemoglobin (Bld) [Mass/Vol] 14.3 g/dL Normal 13.0-16.5 [facility] Comment on above: Performed By: #### L 500.2500, L100.0100, M8200.1000 ####[facility] [address] [place], [address] IG% 0.200 Normal 0.0-0.9 [facility] Comment on above: Result Comment: IG% - Immature Granulocytes (promyelocytes, myelocytes and metamyelocytes) > 1% indicates that a LEFT SHIFT is Present. Performed By: #### L 500.2500, L100.0100, M8200.1000 ####[facility] [address] [place], [address] Lymphocytes/100 WBC (Bld) 31.8 % Normal 19-41 [facility] Comment on above: Performed By: #### L 500.2500, L100.0100, M8200.1000 ####[facility] [address] [place], [address] MCH (RBC) [Entitic mass] 30.0 pg Normal 27.0-32.0 [facility] Comment on above: Performed By: #### L 500.2500, L100.0100, M8200.1000 ####[facility] [address] [place], [address] MCHC (RBC) [Mass/Vol] 34.0 g/dL Normal 32-36 [facility] Comment on above: Performed By: #### L 500.2500, L100.0100, M8200.1000 ####[facility] [address] [place], [address] MCV (RBC) [Entitic vol] 88.3 fL Normal 80-94 [facility] Comment on above: Performed By: #### L 500.2500, L100.0100, M8200.1000 ####[facility] [address] [place], [address] Monocytes/100 WBC (Bld) 8.9 % Normal 0-10 [facility] Comment on above: Performed By: #### L 500.2500, L100.0100, M8200.1000 ####[facility] [address] [place], [address] Neutrophils/100 WBC (Bld) 56.5 % Normal 47-70 [facility] Comment on above: Performed By: #### L 500.2500, L100.0100, M8200.1000 ####[facility] [address] [place], [address] Nucleated RBC (Bld) [#/Vol] 0 10*3/uL Normal 0-5 [facility] Comment on above: Performed By: #### L 500.2500, L100.0100, M8200.1000 ####[facility] [address] [place], [address] Platelet mean volume (Bld) [Entitic vol] 9.3 fL Normal 6.2-12.0 [facility] Comment on above: Performed By: #### L 500.2500, L100.0100, M8200.1000 ####[facility] [address] [place], [address] Platelets (Bld) [#/Vol] 226 10*3/uL Normal 150-450 [facility] Comment on above: Performed By: #### L 500.2500, L100.0100, M8200.1000 ####[facility] [address] [place], [address] RBC (Bld) [#/Vol] 4.77 10*6/uL Normal 4.6-6.2 [facility] Comment on above: Performed By: #### L 500.2500, L100.0100, M8200.1000 ####[facility] [address] [place], [address] RDW SD 39.3 fl Normal 35.1-43.9 [facility] Comment on above: Performed By: #### L 500.2500, L100.0100, M8200.1000 ####[facility] [address] [place], [address] WBC (Bld) [#/Vol] 5.1 10*3/uL Normal 4.4-11.0 [facility] Comment on above: Performed By: #### L 500.2500, L100.0100, M8200.1000 ####[facility] [address] [place], [address] M8200.1000on 07-21-2024 M8200.1000 Normal Reference Range = Negative MRSA DNA Nose Ql FERNANDO+probe GeneXpert Instrument, PCR method MRSA PCR MRSA NEGATIVE Normal [facility] Comment on above: Performed By: #### L 500.2500, L100.0100, M8200.1000 ####[facility] [address] [place], [address] CBC W/Diff, Automatedon 04-22 Absolute Lymph 1.97 X10 3/uL Normal 0.83-4.51 [facility] Comment on above: Order Comment: Order Date: 05/19/24 Order Info: [id number] - CBCD Performed By: #### L 100.0100, L500.4050 #### [facility] [address] [place], [address] Absolute Neut 3.2 X10 3/uL Normal 2.0-7.7 [facility] Comment on above: Order Comment: Order Date: 05/19/24 Order Info: [id number] - CBCD Performed By: #### L 100.0100, L500.4050 #### [facility] [address] [place], [address] Basophils/100 WBC (Bld) 0.7 % Normal 0-1 [facility] Comment on above: Order Comment: Order Date: 05/19/24 Order Info: 0184- - CBCD Performed By: #### L 100.0100, L500.4050 #### [facility] [address] [place], [address] Eosinophils/100 WBC (Bld) 2.2 % Normal 0-5 [facility] Comment on above: Order Comment: Order Date: 05/19/24 Order Info: 0184- - CBCD Performed By: #### L 100.0100, L500.4050 #### [facility] [address] [place], [address] Erythrocyte distribution width (RBC) [Ratio] 12.4 % Normal 11.6-14.6 [facility] Comment on above: Order Comment: Order Date: 05/19/24 Order Info: 0184-1 - CBCD Performed By: #### L 100.0100, L500.4050 #### [facility] [address] [place], [address] Hematocrit (Bld) [Volume fraction] 44.0 % Normal 40-54 [facility] Comment on above: Order Comment: Order Date: 05/19/24 Order Info: 0184-1 - CBCD Performed By: #### L 100.0100, L500.4050 #### [facility] [address] [place], [address] Hemoglobin (Bld) [Mass/Vol] 14.7 g/dL Normal 13.0-16.5 [facility] Comment on above: Order Comment: Order Date: 05/19/24 Order Info: 018- - CBCD Performed By: #### L 100.0100, L500.4050 #### [facility] [address] [place], [address] IG% 0.000 Normal 0.0-0.9 [facility] Comment on above: Order Comment: Order Date: 05/19/24 Order Info: 018- - CBCD Result Comment: IG% - Immature Granulocytes (promyelocytes, myelocytes and metamyelocytes) > 1% indicates that a LEFT SHIFT is Present. Performed By: #### L 100.0100, L500.4050 #### [facility] [address] [place], [address] Lymphocytes/100 WBC (Bld) 34.1 % Normal 19-41 [facility] Comment on above: Order Comment: Order Date: 05/19/24 Order Info: [id number] - CBCD Performed By: #### L 100.0100, L500.4050 #### [facility] [address] [place], [address] MCH (RBC) [Entitic mass] 30.0 pg Normal 27.0-32.0 [facility] Comment on above: Order Comment: Order Date: 05/19/24 Order Info: 018- - CBCD Performed By: #### L 100.0100, L500.4050 #### [facility] [address] [place], [address] MCHC (RBC) [Mass/Vol] 33.4 g/dL Normal 32-36 [facility] Comment on above: Order Comment: Order Date: 05/19/24 Order Info: 018- - CBCD Performed By: #### L 100.0100, L500.4050 #### [facility] [address] [place], [address] MCV (RBC) [Entitic vol] 89.8 fL Normal 80-94 [facility] Comment on above: Order Comment: Order Date: 05/19/24 Order Info: 018-1 - CBCD Performed By: #### L 100.0100, L500.4050 #### [facility] [address] [place], [address] Monocytes/100 WBC (Bld) 8.3 % Normal 0-10 [facility] Comment on above: Order Comment: Order Date: 05/19/24 Order Info: 018- - CBCD Performed By: #### L 100.0100, L500.4050 #### [facility] [address] [place], [address] Neutrophils/100 WBC (Bld) 54.7 % Normal 47-70 [facility] Comment on above: Order Comment: Order Date: 05/19/24 Order Info: 018- - CBCD Performed By: #### L 100.0100, L500.4050 #### [facility] [address] [place], [address] Nucleated RBC (Bld) [#/Vol] 0 10*3/uL Normal 0-5 [facility] Comment on above: Order Comment: Order Date: 05/19/24 Order Info: 018- - CBCD Performed By: #### L 100.0100, L500.4050 #### [facility] [address] [place], [address] Platelet mean volume (Bld) [Entitic vol] 9.8 fL Normal 6.2-12.0 [facility] Comment on above: Order Comment: Order Date: 05/19/24 Order Info: 018-1 - CBCD Performed By: #### L 100.0100, L500.4050 #### [facility] [address] [place], [address] Platelets (Bld) [#/Vol] 248 10*3/uL Normal 150-450 [facility] Comment on above: Order Comment: Order Date: 05/19/24 Order Info: 018-1 - CBCD Performed By: #### L 100.0100, L500.4050 #### [facility] [address] [place], [address] RBC (Bld) [#/Vol] 4.90 10*6/uL Normal 4.6-6.2 [facility] Comment on above: Order Comment: Order Date: 05/19/24 Order Info: 0184- - CBCD Performed By: #### L 100.0100, L500.4050 #### [facility] [address] [place], [address] RDW SD 40.1 fl Normal 35.1-43.9 [facility] Comment on above: Order Comment: Order Date: 05/19/24 Order Info: 0184- - CBCD Performed By: #### L 100.0100, L500.4050 #### [facility] [address] [place], [address] WBC (Bld) [#/Vol] 5.8 10*3/uL Normal 4.4-11.0 [facility] Comment on above: Order Comment: Order Date: 05/19/24 Order Info: 0184- - CBCD Performed By: #### L 100.0100, L500.4050 #### [facility] [address] [place], [address] Comprehensive Metabolic Prof ilon 05-19-2024 Albumin [Mass/Vol] 4.1 g/dL Normal 3.2-5.0 [facility] Comment on above: Order Comment: Order Date: 05/19/24 Order Info: 0786-1 - CMP Performed By: #### L 100.0100, L500.4050 #### [facility] [address] [place], [address] Albumin/Globulin [Mass ratio] 1.2 {ratio} Normal 0.9-2.4 [facility] Comment on above: Order Comment: Order Date: 05/19/24 Order Info: 0786-1 - CMP Performed By: #### L 100.0100, L500.4050 #### [facility] [address] [place], [address] ALK P 64 U/L Normal 45-117 [facility] Comment on above: Order Comment: Order Date: 05/19/24 Order Info: 0786-1 - CMP Performed By: #### L 100.0100, L500.4050 #### [facility] [address] [place], [address] ALT [Catalytic activity/Vol] 22 U/L Normal 16-61 [facility] Comment on above: Order Comment: Order Date: 05/19/24 Order Info: 0786-1 - CMP Performed By: #### L 100.0100, L500.4050 #### [facility] [address] [place], [address] AST [Catalytic activity/Vol] 25 U/L Normal 15-37 [facility] Comment on above: Order Comment: Order Date: 05/19/24 Order Info: 0786-1 - CMP Performed By: #### L 100.0100, L500.4050 #### [facility] [address] [place], [address] Bilirubin [Mass/Vol] 0.60 mg/dL Normal 0.20-1.00 [facility] Comment on above: Order Comment: Order Date: 05/19/24 Order Info: 0786-1 - CMP Result Comment: For patients on eltrombopag therapy, use of Dimension [place] TBIL is not recommended. Performed By: #### L 100.0100, L500.4050 #### [facility] [address] [place], [address] BUN/CRE 19.9 RATIO Normal 10-20 [facility] Comment on above: Order Comment: Order Date: 05/19/24 Order Info: 0786-1 - CMP Performed By: #### L 100.0100, L500.4050 #### [facility] [address] [place], [address] CA,Total 9.0 mg/dL Normal 8.5-10.1 [facility] Comment on above: Order Comment: Order Date: 05/19/24 Order Info: 07-1 - CMP Performed By: #### L 100.0100, L500.4050 #### [facility] [address] [place], [address] Chloride [Moles/Vol] 104 mmol/L Normal 98-107 [facility] Comment on above: Order Comment: Order Date: 05/19/24 Order Info: 07-1 - CMP Performed By: #### L 100.0100, L500.4050 #### [facility] [address] [place], [address] CO2 [Moles/Vol] 28.0 mmol/L Normal 21.0-32.0 [facility] Comment on above: Order Comment: Order Date: 05/19/24 Order Info: 0786-1 - CMP Performed By: #### L 100.0100, L500.4050 #### [facility] [address] [place], [address] Creatinine [Mass/Vol] 1.36 mg/dL High 0.70-1.30 [facility] Comment on above: Order Comment: Order Date: 05/19/24 Order Info: 0786-1 - CMP Result Comment: The validity of the calculated GFR GFRAA in patients over 70 years has not been determined. Clinical correlation is essential. Performed By: #### L 100.0100, L500.4050 #### [facility] [address] [place], [address] EST GFR - AA 72 mL/min Normal >60 [facility] Comment on above: Order Comment: Order Date: 05/19/24 Order Info: 0786-1 - CMP Result Comment: Afri can Pakistani GFR Calc Performed By: #### L 100.0100, L500.4050 #### [facility] [address] [place], [address] GAP 6 Normal 5-15 [facility] Comment on above: Order Comment: Order Date: 05/19/24 Order Info: 0786-1 - CMP Performed By: #### L 100.0100, L500.4050 #### [facility] [address] [place], [address] GFR/1.73 sq M.predicted among non-blacks MDRD (S/P/Bld) [Vol rate/Area] 59 mL/min/{1.73_m2} Low >60 [facility] Comment on above: Order Comment: Order Date: 05/19/24 Order Info: 0786-1 - CMP Result Comment: Non- GFR Calc Performed By: #### L 100.0100, L500.4050 #### [facility] [address] [place], [address] Globulin (S) [Mass/Vol] 3.3 g/dL Normal 2.2-4.2 [facility] Comment on above: Order Comment: Order Date: 05/19/24 Order Info: 0786-1 - CMP Performed By: #### L 100.0100, L500.4050 #### [facility] [address] [place], [address] Glucose [Mass/Vol] 99 mg/dL Normal 74-106 [facility] Comment on above: Order Comment: Order Date: 05/19/24 Order Info: 0786-1 - CMP Performed By: #### L 100.0100, L500.4050 #### [facility] [address] [place], [address] Potassium [Moles/Vol] 4.1 mmol/L Normal 3.5-5.1 [facility] Comment on above: Order Comment: Order Date: 05/19/24 Order Info: [id number] - CMP Performed By: #### L 100.0100, L500.4050 #### [facility] [address] [place], [place], [id number] Sodium [Moles/Vol] 138 mmol/L Normal 136-145 [facility] Comment on above: Order Comment: Order Date: 05/19/24 Order Info: [id number] - CMP Performed By: #### L 100.0100, L500.4050 #### [facility] [address] [place], [place], [id number] T PROT 7.4 g/dL Normal 6.4-8.2 [facility] Comment on above: Order Comment: Order Date: 05/19/24 Order Info: [id number] - CMP Performed By: #### L 100.0100, L500.4050 #### [facility] [address] [place], [place], [id number] Urea nitrogen [Mass/Vol] 27 mg/dL High 7-18 [facility] Comment on above: Order Comment: Order Date: 05/19/24 Order Info: [id number] - CMP Performed By: #### L 100.0100, [id number] #### [facility] [address] [place], [place], [address] CNPRadha 07-06-2023 CNPN Telephone (Hyper Urban Level User [place]) ---- ZACHARY HARGROVE ([id number]) 1975 Date Time Provider Department 07/06/23 YOLA GONSALES During your visit today, we recorded the following information about you: Yola Gonsales LGC 07/06/2023 2:48 PM Signed Patient name and was confirmed at initiation of discussion. Zachary Edgardo Dilloner's 68-gene Custom Cancer Panel through [facility] was negative for a pathogenic variant. Please see 5minutest message for further discussion. PAULA Bedolla Licensed, Certified Genetic Counselor Allergies As of Date: 07/06/2023 (No Known Allergies) Date Reviewed: 05/11/2023 Reviewed by: Brian Meidna Ma - Fully Assessed Reason for Visit: Results [95] Cmt: Genetic test results Prescriptions as of 07/06/2023 - lisinopril (ZESTRIL, PRINIVIL) 20 mg tablet Take 20 mg by mouth once daily. - bisoprolol (ZEBETA) 5 mg tablet Take 5 mg by mouth once daily. Problem List As Of Date 07/06/2023 Noted Resolved SPRAIN OF FOOT NOS [S93.609A] 12/26/2006 Encounter Status:Closed by [facility]A [facility]ES [facility]06[facility] 1 [facility] Normal [facility] Comment on above: Order Comment: Speci men Type: BLOOD SPECIMEN Ordering Facility: [facility] Address: [address] [place] [address] Performed By: #### M ISC1 #### NON-INTERFACED REF LABS CLIA SEE SCANNED RESULTS TEST 1 68-gene custom cancer panel Normal [facility] Comment on above: Order Comment: Speci men Type: BLOOD SPECIMEN Ordering Facility: [facility] Address: [address] [place] [address] Performed By: #### M ISC1 #### NON-INTERFACED REF LABS CLIA SEE SCANNED RESULTS TEST RESULTS 1 View results in Scanned Documents link when available. Normal [facility] Comment on above: Order Comment: Speci men Type: BLOOD SPECIMEN Ordering Facility: [facility] Address: [address] [place] [address] Performed By: #### M ISC1 #### NON-INTERFACED REF LABS CLIA SEE SCANNED RESULTS CNOVSPon 05-11-2023 CNOVS Visit (SP) Office (HEMAWS) ---- ZACHARY HARGROVE ([id number]) 1975 M Date Time Provider Department 05/11/23 10:30 AM CELESTINO KIM During your visit today, we recorded the following information about you: Temperature Pulse Blood pressure Weight 97.7 degrees 62/minute 133/78 88.2 kg Height 1.828 m Celestino Kim MD 05/11/2023 4:41 PM Signed HISTORY OF PRESENT ILLNESS: Zachary Hargrove is a 48 year old male found to have a cancer at splenic flexure on routine colonoscopy. Resected 04-13-23 [id number] Here to discuss next steps CLINICAL IMPRESSION: Stage I colon cancer resected RECOMMENDATION/PLAN : 1. Per NCCN no further treatment needed 2. Surveillance includes only colonoscopy at 1 year and 3 years, sooner if indicated 3. See oncology prn Written and verbal health teaching given to patient, patient verbalizes understanding and agrees with treatment plan. PAST MEDICAL HISTORY Diagnosis Date Essential hypertension Thrombosed hemorrhoids PAST SURGICAL HISTORY Procedure Laterality Date LAPAROSCOPIC HEMICOLECTOMY 04/27/2023 PAST SURGICAL HISTORY OF wisdom teeth FAMILY HISTORY Problem Relation Age of Onset Hypertension Mother Hypertension Father No Known Problems Sister No Known Problems Sister Thyroid Brother Diabetes Maternal Grandmother Heart Attack Paternal Uncle Social History Tobacco Use Smoking status: Never Smokeless tobacco: Never Vaping Use Vaping Use: Never used Substance Use Topics Alcohol use: Never Drug use: Never ALLERGIES: ALLERGIES No Known Allergies CURRENT OUTPATIENT MEDICATIONS: lisinopril (ZESTRIL, PRINIVIL) 20 mg tablet Take 20 mg by mouth once daily. bisoprolol (ZEBETA) 5 mg tablet Take 5 mg by mouth once daily. REVIEW OF SYSTEMS: GENERAL: No fever, night sweats, weight loss or malaise. All other reviewed and negative other than HPI. PHYSICAL EXAMINATION: VITAL SIGNS: BP 133/78 Pulse 62 Temp 97.7 Ht 5' 11.949" (1.83m) Wt 194 lb 8 oz (88.2kg) SpO2 98% BMI 26.40 kg/(m2). GENERAL APPEARANCE: Well appearing, in no acute distress, alert and oriented x3, well-hydrated, well nourished. I spent a total of 45 minutes on the date of the service which included preparing to see the patient, [id number] patient care, completing clinical documentation, obtaining and/or reviewing separately obtained history, counseling and educating the patient/family/care services manager, independently interpreting results (not separately reported), and communicating results to the patient/family/care services manager. Electronically Signed: Celestino Kim MD May 11, 2023 11:04 AM Allergies As of Date: 05/11/2023 (No Known Allergies) Date Reviewed: 05/11/2023 Reviewed by: Brian Medina Ma - Fully Assessed Reason for Visit: New Patient [172] Primary Visit Diagnosis:Malignant neoplasm of splenic flexure (HCC) [C18.5] Order(s):CONSULT TO MEDICAL GENETICS - CANCER [0495817] Order #: [id number]: 1 FUTURE Prescriptions as of 05/11/2023 - lisinopril (ZESTRIL, PRINIVIL) 20 mg tablet Take 20 mg by mouth once daily. - bisoprolol (ZEBETA) 5 mg tablet Take 5 mg by mouth once daily. Problem List As Of Date 05/11/2023 Noted Resolved SPRAIN OF FOOT NOS [S93.609A] 12/26/2006 Encounter Status:Closed by CELESTINO KIM on 05/11/23 [facility] Telephone (KHANG) ---- ZACHARY HARGROVE ([id number]) 1975 M Date Time Provider Department 05/07/23 JOSE JUAN GARDNER During your visit today, we recorded the following information about you: Roya Gibson 05/07/2023 10:13 AM Signed Pt calling in, saw provider today at [facility] . Stated he is being referred to our office and provider is sending over referral. Pt just had lumpectomy of left splenic flexure. Dx: Stage 1 Colon Cancer/ Invasive invasive carcinoma of left colon Pt is requesting to see . Please advise on scheduling Rita Jim RN 05/08/2023 4:04 PM Signed Patient is being referred from Dr. Vasquez. CT abd/pelvis completed on 04/20/23 at [facility]. Path and CT report printed and given to Anh to place in a new patient folder. MICROSCOPIC DIAGNOSIS Splenic flexure left colon, left colectomy: Intramucosal carcinoma and detached fragments of tubular adenoma with high-grade dysplasia and carcinoma in situ. Focal ulceration and associated inflammation consistent with previous biopsy site. Four out of four lymph nodes, negative for metastatic carcinoma. Donut-shaped piece of tissue, no pathologic diagnosis. See comment. SJ:josh 05/03/2023 COMMENT Please make reference to previous specimen ([id number]), polyp splenic flexure, polypectomy with diagnosis of invasive adenocarcinoma arising in the background of tubulovillous adenoma, extensive high-grade dysplasia and carcinoma in situ. The tumor invades submucosa. Pathologic staging including previous specimen is pT1, N0, Mx. MSI can be performed on previous specimen [id number] as most of the invasive carcinoma is present in the previous polypectomy specimen. Please notify the laboratory, if they are needed. Case has been reviewed in consultation with Dr. Lewis who concurs with the above diagnosis. IDC:Anh Davenport LPN 05/08/2023 4:10 PM Signed given to Dr gradner for review. Tayler Mccormack LPN, RN 05/10/2023 9:40 AM Signed Appointment scheduled with Dr Kim due to next available with Dr Gardner 05/21. Pt verbalized understanding. Dr Kim and Dr Gardner both aware. Tayler Vazquez RN Allergies As of Date: 05/07/2023 (No Known Allergies) Date Reviewed: 08/02/2021 Reviewed by: Celena, Aurora, PA-C - Fully Assessed Reason for Visit: New Patient [172] Prescriptions as of 05/10/2023 - lisinopril (ZESTRIL, PRINIVIL) 20 mg tablet - bisoprolol (ZEBETA) 5 mg tablet Problem List As Of Date 05/07/2023 Noted Resolved SPRAIN OF FOOT NOS [S93.609A] 12/26/2006 Encounter Status:Closed by RITA JIM on 05/09/23 Normal [facility] [place] Basophil percentageOrdered B y: Dr. Sapp on 12-22-2022 Bilirubin [Mass/Vol] 0.80 mg/dL 0.20-1.00 [facility] Comment on above: For patients on eltr ombopag therapy, use of Dimension [place] TBIL is not recommended. Chloride [Moles/Vol] 107 mmol/L 98-107 [facility] Cholesterol [Mass/Vol] 187 mg/dL <200 [facility] Comment on above: <200 mg/dL Desirable 200-240 mg/dL Borderline >240 mg/dL High Risk Glucose [Mass/Vol] 92 mg/dL 74-106 [facility] Potassium [Moles/Vol] 4.5 mmol/L 3.5-5.1 [facility] Protein [Mass/Vol] 7.2 g/dL 6.4-8.2 [facility] Sodium [Moles/Vol] 141 mmol/L 136-145 [facility] Triglyceride [Mass/Vol] 68 mg/dL <199 [facility] Comment on above: The drugs N-Acetylcy steine and Metamizole may falsely depress this assay.Serum Triglycerides Reference Interval Normal <150 mg/dL Borderline high 150 - 199 mg/dL High 200 - 499 mg/dL Very High > or = 500 mg/dL Laboratory - Chemistry and C hemistry - challengeOrdered By: Dr. Sapp on 12-22-2022 ALP [Catalytic activity/Vol] 62 U/L 45-117 [facility] ALT [Catalytic activity/Vol] 20 U/L 16-61 [facility] CO2 [Moles/Vol] 29.0 mmol/L 21.0-32.0 [facility] Globulin (S) [Mass/Vol] 3.3 g/dL 2.2-4.2 [facility] Urea nitrogen/Creatinine [Mass ratio] 19.1 mg/mg 10-20 [facility] No Panel InformationOrdered By: Dr. Sapp on 12-22-2022 Estimated GFR (MDRD) Amer 87 mL/min >60 [facility] Comment on above: GFR Calc Estimated GFR (MDRD) Non-Af Amer 72 mL/min >60 [facility] Comment on above: Non- GFR Calc Urine Microalbumin/Creatinine Ratio 3.7 mg/g CRE <30 [facility] Serum or plasma albumin angelique urement (mass/volume)Ordered By: Dr. Sapp on 12-22-2022 Albumin [Mass/Vol] 3.9 g/dL 3.2-5.0 [facility] Serum or plasma albumin/glob ulin mass ratioOrdered By: Dr. Sapp on 12-22-2022 Albumin/Globulin [Mass ratio] 1.2 {ratio} 0.9-2.4 [facility] Serum or plasma calcium angelique urement (mass/volume)Ordered By: Dr. Sapp on 12-22-2022 Calcium [Mass/Vol] 8.9 mg/dL 8.5-10.1 [facility] Serum or plasma cholesterol in HDL measurement (mass/volume)Ordered By: Dr. Sapp on 12-22-2022 Cholesterol in HDL [Mass/Vol] 57 mg/dL >40 [facility] Comment on above: The drugs N-Acetylcy steine and Metamizole may falsely depress this assay. Reference Range HDL <40 mg/dL Low HDL Cholesterol HDL >or= 60 mg/dL High HDL Cholesterol Serum or plasma cholesterol in VLDL measurement (mass/volume)Ordered By: Dr. Sapp on 12-22-2022 Cholesterol in VLDL [Mass/Vol] 14 mg/dL 5-40 [facility] Serum or plasma creatinine m easurement (mass/volume)Ordered By: Dr. Sapp on 12-22-2022 Creatinine [Mass/Vol] 1.15 mg/dL 0.70-1.30 [facility] Comment on above: The validity of the calculated GFR & GFRAA in patients over 70 years has not been determined. Clinical correlation is essential. Serum or plasma low density lipoprotein (LDL) cholesterol measurement (mass/volume)Ordered By: Dr. Sapp on 12-22-2022 Cholesterol in LDL [Mass/Vol] 116 mg/dL 0-130 [facility] Serum or plasma urea nitroge n measurement (mass/volume)Ordered By: Dr. Sapp on 12-22-2022 Urea nitrogen [Mass/Vol] 22 mg/dL 7-18 [facility] Thin prep Papanicolaou smear with manual screeningOrdered By: Dr. Sapp on 12-22-2022 Thin prep Papanicolaou smear with manual screening 17 U/L 15-37 [facility] Thin prep Papanicolaou smear with manual screening 5 5-15 [facility] Thin prep Papanicolaou smear with manual screening 5.6 mg/L NO RANGE EST. [facility] Urine creatinine measurement (mass/volume)Ordered By: Dr. Sapp on 12-22-2022 Creatinine (U) [Mass/Vol] 151.00 mg/dL NO RANGE EST. [facility] Vital Signs Date Time Vital Sign Value Performing Clinician Faci lity 04-14-2025 09:20-0400 Body temperature 97.1 [degF] Dr. Jackson Sapp MD Work Phone: [facility] 04-14-2025 09:20-0400 Diastolic blood pressure 94 mm[Hg] Dr. Jackson Sapp MD Work Phone: [facility] 04-14-2025 09:20-0400 Heart rate 61 /min Dr. Jackson Sapp MD Work Phone: [facility] 04-14-2025 09:20-0400 Respiratory rate 61 /min Dr. Jackson Sapp MD Work Phone: [facility] 04-14-2025 09:20-0400 SaO2% (BldA) [Mass fraction] 97 % Dr. Jackson Sapp MD Work Phone: [facility] 04-14-2025 09:20-0400 Systolic blood pressure 124 mm[Hg] Dr. Jackson Sapp MD Work Phone: [facility] 04-14-2025 08:01-0400 Body height 180.[address] Jackson Sapp MD Work Phone: [facility] 04-14-2025 08:01-0400 Body mass index (BMI) [Ratio] 27.6 kg/m2 Dr. Jackson Sapp MD Work Phone: [facility] 04-14-2025 08:01-0400 Body weight [address] Jackson Sapp MD Work Phone: [facility] 05-11-2023 10:49-0400 Body height 182.8 cm Celestino Kim MD Work Phone: [facility] 05-11-2023 10:49-0400 Body temperature 97.7 [degF] Celestino Kim MD Work Phone: [facility] 05-11-2023 10:49-0400 Body weight 88.22 kg Celestino Kim MD Work Phone: [facility] 05-11-2023 10:49-0400 Diastolic blood pressure 78 mm[Hg] Celestino Kim MD Work Phone: [facility] 05-11-2023 10:49-0400 Heart rate 62 /min Celestino Kim MD Work Phone: [facility] 05-11-2023 10:49-0400 SaO2% (BldA) [Mass fraction] 98 % Celestino Kim MD Work Phone: [facility] 05-11-2023 10:49-0400 Systolic blood pressure 133 mm[Hg] Celestino Kim MD Work Phone: [facility] 04-13-2023 10:11-0400 Body temperature 97.6 [degF] Dr. Jackson Sapp Work Phone: [facility] 04-13-2023 10:11-0400 Diastolic blood pressure 83 mm[Hg] Dr. Jackson Sapp Work Phone: [facility] 04-13-2023 10:11-0400 Heart rate 46 /min Dr. Jackson Sapp Work Phone: [facility] 04-13-2023 10:11-0400 Respiratory rate 16 /min Dr. Jackson Sapp Work Phone: [facility] 04-13-2023 10:11-0400 SaO2% (BldA) [Mass fraction] 100 % Dr. Jackson Sapp Work Phone: [facility] 04-13-2023 10:11-0400 Systolic blood pressure 117 mm[Hg] Dr. Jackson Sapp Work Phone: [facility] 04-13-2023 06:50-0400 Body height 182.[address] Jackson Sapp Work Phone: [facility] 04-13-2023 06:50-0400 Body mass index (BMI) [Ratio] 26.6 kg/m2 Dr. Jackson Sapp Work Phone: [facility] 04-13-2023 06:50-0400 Body weight [address] Jackson Sapp Work Phone: [facility] 02-23-2023 11:59-0400 Body mass index (BMI) [Ratio] 27.1 kg/m2 Dr. Jackson Sapp Work Phone: [facility] 02-23-2023 11:59-0400 Body weight 90.[address] Jackson Sapp Work Phone: [facility] Encounters Encounter Date Encounter Type Care Provider Facility Start: 04-14-2025 Non-patient / Non-visit Dr. Sabiha Garza MD -[facility] Start: 04-14-2025 End: 04-14-2025 Admission to same day surgery center Dr. Manan Garza MD -Endoscopy Work Phone: Start: 04-14-2025 End: 04-14-[address] Jackson Sapp MD Work Phone: -Endoscopy Start: 12-01-2024 End: 12-01-[address] Jackson Sapp MD Work Phone: [facility] Work Phone: Start: 12-01-2024 End: 12-01-[address] Jackson Sapp MD -Laboratory, [place] Work Phone: Start: 12-01-2024 End: 12-01-2024 ambulatory Jackson Sapp Facility:[facility] Start: 07-21-2024 End: 07-21-2024 ambulatory Jackson Sapp Facility:[facility] Start: 05-19-2024 End: 05-19-2024 ambulatory Jackson Stevenson Facility:[facility] Start: 07-06-2023 Telephone encounter Yola gonzalez [facility] Work Phone: [facility] Comment on above: Results (Genetic nahomy t results) Start: 06-18-2023 End: 06-19-2023 ambulatory [facility] Vikram [facility] Facility:[facility] Start: 06-11-2023 End: 06-11-2023 ambulatory Yolagonzales Gonsales [facility] Work Phone: [facility] Comment on above: Malignant neoplasm o f splenic flexure (HCC) (Primary Dx); Family history of colon cancer; Family history of breast cancer Start: 06-11-2023 End: 06-11-2023 Telemedicine consultation with patient Yola Gonsales [facility] Work Phone: [facility] Start: 05-11-2023 End: 05-11-2023 ambulatory CELESTINO KIM Facility:[facility] Start: 05-11-2023 End: 05-11-2023 ambulatory Celestino Kim MD Work Phone: Hematology/Oncology Comment on above: Malignant neoplasm o f splenic flexure (HCC) (Primary Dx) Start: 05-11-2023 End: 05-11-2023 Patient encounter procedure Celestino Kim MD Work Phone: [facility] Start: 05-07-2023 Telephone encounter Jose Juan schulte DO Work Phone: Hematology/Oncology Comment on above: New Patient Start: 04-13-2023 Non-patient / Non-visit Dr. Elliot Sapp Work Phone: [facility] Start: 04-13-2023 End: 04-13-2023 Admission to same day surgery center Dr. Jackson Sapp Work Phone: [facility]-Endoscopy Work Phone: Start: 04-13-2023 End: 04-13-[address] Jackson Sapp Work Phone: [facility] Work Phone: Start: 02-23-2023 Non-patient / Non-visit Dr. Elliot Sapp Work Phone: [facility] Work Phone: Start: 12-22-2022 End: 12-22-2022 ambulatory [facility] Work Phone: Start: 12-22-2022 End: 12-22-2022 Patient encounter procedure [facility]-Laboratory Procedures Date Procedure Procedure Detail Performing Clinician Start: 04-14-[address] Jackson vail MD Work Phone: Start: 04-13-2023 Diagnostic radiograp hy of abdomen, decubitus and erect Dr. Jackson Sapp Work Phone: Start: 04-13-[address] Jackson vail Work Phone: Plan of Treatment Date Care Activity Detail Author Start: 12-13-2028 Urine microalbumin profile DTaP,Tdap,Td Vaccine (2 - Td or Tdap) [facility] Start: 04-14-2025 Patient discharge [facility] Start: 06-11-2023 End: 09-10-2023 MISC SEND OUT TST 1 MISC SEND OUT TST 1 Lab Routine Malignant neoplasm of splenic flexure (HCC) Family history of colon cancer Family history of breast cancer Expected: 06/11/2023, Expires: 09/10/2023 [facility] Work Phone: Comment on above: Expected: 06/11/2023 , Expires: 09/10/2023 Start: 04-20-2023 Covid-19 Vaccine () Covid-19 Vaccine () [facility] Start: 04-20-2023 Influenza vaccination Influenza Vacc ine (#1) [facility] Start: 04-13-2023 Patient discharge [facility] Start: 08-20-2022 Depression Assessment Depression Ass essment [facility] Start: 10-06-2021 Covid-19 Vaccine (4 - Moderna series) Covid-19 Vaccine (4 - Moderna series) [facility] Start: 01-20-2021 Covid-19 Vaccine (3 - Moderna series) Covid-19 Vaccine (3 - Moderna series) [facility] Start: 02-01-2020 Cologuard (FIT-DNA) Cologuard (FIT-D NA) [facility] Start: 02-01-2020 Colonoscopy Colonoscopy [facility] Start: 02-01-2020 Colorectal Cancer Screening Colorectal Cancer Screening [facility] Start: 02-01-[address] COLONOGRAPHY [facility] Start: 02-01-2020 Diabetes Screening Diabetes Screenin g [facility] Start: 02-01-2020 Fecal Occult Blood Fecal Occult Bloo d [facility] Start: 02-01-2020 SIGMOIDOSCOPY SIGMOIDOSCOPY [facility] Start: 2010 Lipid 1996 panel - S tiffanie or Plasma Lipid Screening [facility] Start: 1994 Urine microalbumin profile DTaP,Tdap,Td Vaccine (1 - Tdap) [facility] Start: 1993 Hepatitis C Screening Hepatitis C Sc reening [facility] Start: 1993 HIV Screening HIV Screening [facility] Start: 1975 Hepatitis B Vaccine (1 of 3 - 3-dose series) Hepatitis B Vaccine (1 of 3 - 3-dose series) [facility] Colonoscopy [facility] Patient referral [facility] Work Phone: [facility] Immunizations Immunization Date Immunization Notes Care Provider Fa cility 05-07-2020 influenza virus vacc ine, unspecified formulation Jose Juan Gardner DO Work Phone: [facility] Payers Date Payer Category Payer Self-pay [id number] 2022 Private Health Insurance [id number] 2022 Private Health Insurance MAYELIN GODINEZ OA [id number] 2022-Present [phone] [place] [address] [place] [address] Open Access [id number] Unknown [id number] Unknown [id number] Unknown [id number] Unknown [id number] Unknown [id number] Unknown [id number] Social History Date Type Detail Facility Tobacco smoking stat us IDIS Unknown if ever smoked [facility] Work Phone: Start: 1975 Sex Assigned At Male [facility] Start: 04-10-2023 Tobacco smoking status IDIS Unknown if ever smoked [facility] Start: 10-19-2020 End: 04-14-2025 Tobacco smoking status IDIS Never smoked tobacco [facility] Start: 10-19-2020 Tobacco use and exposure Smokeless tobacco non-user [facility] Start: 08-02-2021 End: 05-11-2023 Alcohol intake Lifetime non-drinker (finding) [facility] Start: 10-19-2020 End: 05-11-2023 [facility] Start: 10-19-2020 End: 05-11-2023 Alcohol Use Disorder Identification Test - Consumption [AUDIT-C] [facility] How often to you hav e a drink containing alcohol? Never [facility] Average Number of Drinks Not on file [facility] Start: 1975 Sex Assigned At Not on file [facility] Start: 06-07-2023 Gender identity Identifies as male gender (finding) [facility] Start: 06-07-2023 Sexual orientation Heterosexual (finding) [facility] Start: 12-04-2024 Sex Male (finding) [facility] Medical Equipment Procedure Code Equipment Code Equipment Original Text Equipment Identifier Dates Laparoscopic-assisted sigmoidectomy Surgical staple loading unit, cutting [id number] FDA Start: 04-27-2023 Laparoscopic-assisted sigmoidectomy Open-surgery manual linear cutting stapler, single-use [id number] FDA Start: 04-27-2023 Laparoscopic-assisted sigmoidectomy Ligation clip, synthetic polymer, non-bioabsorbable [id number] FDA Start: 04-27-2023 Laparoscopic-assisted sigmoidectomy Ligation clip, synthetic polymer, non-bioabsorbable ()[id number] FDA Start: 04-27-2023 Laparoscopic-assisted sigmoidectomy Ligation clip, synthetic polymer, non-bioabsorbable ()[id number] FDA Start: 04-27-2023 Colonoscopy Tissue marking ink ()[id number] FDA Start: 04-13-2023 Colonoscopy Ligation clip, metallic ()[id number] FDA Start: 04-13-2023 Colonoscopy Ligation clip, metallic ()[id number] FDA Start: 04-13-2023 Goals Date Patient Goal Desired Activity /State Mental Status Date Assessment Result Facility 04-14-2025 Cognitive function Voice/Name [facility] Work Phone: 04-13-2023 Cognitive function Voice/Name [facility] Work Phone: Clinical Notes 04-13-2023 to 04-14-2025 Telephone Encounter - Yola Gonsales LGC - 07/06/2023 2:42 PM Yola John LGC - 06/11/2023 1:52 PM Celestino Nunez MD - 05/11/2023 11:02 AM EDT Note Date & Type Note Facility 04-14-2025 Consult note [facility] 04-14-2025 Procedure note [facility] 04-14-2025 Procedure note [facility] 04-14-2025 Consult note [facility] 04-14-2025 History and physi danna note [facility] 04-14-2025 Note [facility] Medical Records Department [address] [place] [address] History Physical Exam 04/14/25 08 MR#: [id number] Acct: [id number] Name: ZACHARY HARGROVE Rep #: [id number] : 1975 50 From: Manan Garza MD PCP: Dr. Jackson Sapp MD Status:[facility] Location: [place] [address] HPI - General HPI Narrative ZACHARY HARGROVE, is a 50 M who presents for surveillance colonoscopy. The patient had a colon cancer in 2022 that he had a left hemicolectomy for. Patient is doing well except for thrombosed hemorrhoid. He denies abdominal pain or blood in the stool. [facility] Medical History Colon cancer Non-smoker Migraine Cardiac murmur Conductive hearing loss Thrombosed external hemorrhoid HTN (hypertension) Encounter for screening for malignant neoplasm of colon Home Medications ???Medication ???Instructions ???Recorded ???Last Taken ???Type bisoprolol fumarate 5 mg tablet 5 mg PO DAILY HTN 02/23/23 5 History lisinopril 20 mg tablet 20 mg PO DAILY HTN 02/23/23 History Allergy/AdvReac Type Severity Reaction Status Date / Time No Known Allergies Allergy Verified 04/14/25 07:59 Family History Father Hypertension Mother Hypertension Diabetes Surgical History Hx of fusion of cervical spine Hx of colonoscopy S/P colectomy [place] teeth extracted Social History household members: spouse and children number of children: 9 current occupational status: employed 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 Smoking Status: Never smoker alcohol intake: never Past Medical/Surgical History Planned Operation Planned Operative Procedure(s): COLOSCOPY Previous Hospitalizations/Surgeries HX Hospitalizations: No Any Problems With Anesthesia: No You/Your Family Experience Fever (Hyperthermia) With Anes: No Cholinesterase deficiency: No Cardiovascular Hx Chest Pain within Last 2 months: No Hx Heart Attack: No Hx Hypertension: Yes (CONTROLLED WITH MED) Hx Cardiac Surgery/Stents/Etc.: No Respiratory Hx Chronic Obstructive Pulmonary Disease (COPD): No Hx Sleep Apnea: No Hx Respiratory Tract Infection/Cold (presently): No Do You Snore Loudly (louder than talking or can be heard): No Do You Often Feel Tired/ Fatigued/ Sleepy Dring Daytime?: No Has Anyone Observed You Stop Breathing During Sleep?: No Result (for STOP score): Negative Smoking Status: Never smoker Neurological Hx Parkinson's Disease: No Does patient have nerve stimulator: No Blood Disorder Hx Anemia: No Reproduction : No Genitourinary Hx Dialysis: No Musculoskeletal Hx Rheumatoid Arthritis: No Endocrine Hx Diabetes: No Thyroid Disease: No Psycho/Social Hx Depression: No Hx Dementia: No Miscellaneous Hx Cancer: No Recent Exposure to Contagious Disease: No Allergies No Known Allergies Allergy (Verified 04/14/25 07:59) Discharge Is Pt Admitted From a Halfway, or a Custodial: No After D/C, Where Do you Plan to Go: Return Home Vital Signs Vital Signs Vital Signs: 04/14/25 08:01 04/14/25 08:01 Temperature 97.1 F L Temperature Source Temporal Pulse Rate 57 L Respiratory Rate 20 H Respiratory Pattern Normal Blood Pressure 154/88 H Blood Pressure Mean 110 Blood Pressure Source Monitor Blood Pressure Position Semi-Fowlers Blood Pressure Location Right Arm Pulse Ox 100 Oxygen Delivery Method Room Air Weight Weight: 198 lb 6.656 oz Body Mass Index (BMI) 27.6 Physical Exam Const alert and oriented x3 HEENT normocephalic Eyes PERRL Resp normal respiratory effort and normal air movement Cardio regular rate and regular rhythm GI soft to palpation, non-tender and non-distended Extremity normal to inspection Assessment Plan Assessment/Plan (1) Colon cancer: QUALIFIERS: Colon location: descending Qualified Code(s): C18.6 - Malignant neoplasm of descending colon PLAN: Patient has a history of colon cancer 2 years ago and is here for his yearly surveillance colonoscopy. The patient also has a thrombosed hemorrhoid and I asked him to come into the office to address this and I can evacuate it. I explained endoscopy in detail to the patient. I explained the risks including but not limited to stroke or heart attack with anesthesia, perforation of the GI tract, bleeding, infection. I explained that any of these could necessitate further emergency surgery. The patient understands and all questions were answered sufficiently. The patient wishes to proceed with procedure. Manan Garza MD Pager: [phone] (more content not included)... [facility] 07-06-2023 Miscellaneous Notes Patient name and was confirmed at initiation of discussion. Zachary Hargrove's 68-gene Custom Cancer Panel through [employer] was negative for a pathogenic variant. Please see [facility] message for further discussion. PAULA Bedolla Licensed, Certified Genetic Counselor documented in this encounter [facility] 06-11-2023 Note HNO ID: [id number] Author: YOLA GONSALES LGC Service: ? Author Type: Genetic Counselor Type: Progress Notes Filed: 09/18/2023 13:06 Note Text: [facility] Consultation Note Genetic Counselor: Yola Gonsales MS, [facility] Patient: Zachary Hargrove Patient Name and confirmed at initiation of visit. This session was conducted via [employer]. I have communicated my name and active licensure. The patient's identity and physical location were verified at the time of this visit. Either the patient or their legal career services representative has been informed of the risks and benefits of -- and alternatives to -- treatment through a remote evaluation and consents to proceed with the evaluation remotely. HIGH LEVEL SUMMARY: The patient's personal and family history is potentially suggestive of a hereditary cancer syndrome. The patient provided informed consent for 68-gene Custom Cancer Panel through [employer]. Results are expected in 2-3 weeks. Genetic counseling and consideration of genetic testing is recommended for the patient's maternal cousin that was diagnosed with breast cancer at 47. IDENTIFICATION AND CHIEF COMPLAINT: Dr. Celestino Kim requested a consultation for genetic counseling and risk assessment for Zachary Hargrove, a 48 year old male, for discussion of his personal history of colon cancer. He presents to clinic today to discuss the possibility of a genetic predisposition to cancer, and to further clarify his risks, as well as his family members' risks for cancer. HISTORY OF PRESENT ILLNESS: In 2022, at the age of 48, Zachary Hargrove was diagnosed with a splenic flexure cancer. This was treated with surgery. PAST MEDICAL HISTORY Diagnosis Date Essential hypertension Thrombosed hemorrhoids PAST SURGICAL HISTORY Procedure Laterality Date LAPAROSCOPIC HEMICOLECTOMY 04/27/2023 PAST SURGICAL HISTORY OF wisdom teeth CANCER SURVEILLANCE HISTORY: Colonoscopy: last 03/2023 EGD: N/A GI Polyps: none per pt report Dermatology: No REPRODUCTIVE HISTORY AND PERSONAL RISK ASSESSMENT FACTORS: Weight: Last 1 Encounter Wt Readings: Date: Wt: 05/11/2023 88.2 kg (194 lb 8 oz) Height: Last 1 Encounter Ht Readings: Date: Ht: 05/11/2023 182.8 cm (5' 11.95") SOCIAL HISTORY: Social History Tobacco Use Smoking status: Never Smokeless tobacco: Never Vaping Use Vaping Use: Never used Substance Use Topics Alcohol use: Never Drug use: Never FAMILY HISTORY: We obtained a detailed, 4-generation family history. Significant diagnoses are listed below: Maternal aunt with colon cancer at 58 Maternal cousin with breast cancer at 47 FAMILY HISTORY Problem Relation Age of Onset Hypertension Mother Hypertension Father No Known Problems Sister No Known Problems Sister Thyroid Brother Diabetes Maternal Grandmother Heart Attack Paternal Uncle The patient's maternal ancestors are of Polish descent and paternal ancestors are of Citizen Of [place] descent. There is no Ashkenazi Nondenominational ancestry. There is no known consanguinity. A copy of the patient's pedigree will be available under the scanned documents tab following today's visit. GENETIC COUNSELING RISK ASSESSMENT, DISCUSSION, AND SUGGESTED FOLLOW UP: We reviewed the natural history and genetic etiology of sporadic, familial and hereditary cancer syndromes. The patient's personal and family history is potentially suggestive of: a hereditary cancer syndrome The patient meets NCCN HBOC criteria based on his personal history of colon cancer at 48. We discussed that identification of a hereditary cancer syndrome may help his care providers tailor his medical management. If a mutation is detected, the National Comprehensive Cancer Network and/or expert opinion recommendations could include increased cancer surveillance and prophylactic surgery options. If a mutation is detected, the patient will be referred back to the referring provider and to any additional appropriate care providers to discuss the relevant options. Inheritance of hereditary cancer syndromes was discussed with the patient. If a mutation is not found in the patient, this will decrease the likelihood of a hereditary cancer syndrome as the explanation for the patient's personal and family history of cancer. However, it cannot completely rule out this possibility. Cancer surveillance options would be discussed for the patient according to the appropriate standard National Comprehensive Cancer Network and [employer] Cancer Society guidelines, with consideration of their personal and family history risk factors. In this case, the patient will be referred back to their care providers for discussions of management. Based on this assessment of the patient's family and personal history, genetic testing is recommended. The patient was offered 68-gene Custom [employer]ance (more content not included)... [facility] 06-11-2023 History of Present illness Narrative [facility] Consultation Note Genetic Counselor: Yola Gonsales MS, [facility] Patient: Zachary Hargrove Patient Name and confirmed at initiation of visit. This session was conducted via [employer]. I have communicated my name and active licensure. The patient's identity and physical location were verified at the time of this visit. Either the patient or their legal career services representative has been informed of the risks and benefits of -- and alternatives to -- treatment through a remote evaluation and consents to proceed with the evaluation remotely. HIGH LEVEL SUMMARY: The patient's personal and family history is potentially suggestive of a hereditary cancer syndrome. The patient provided informed consent for 68-gene Custom Cancer Panel through [employer]. Results are expected in 2-3 weeks. Genetic counseling and consideration of genetic testing is recommended for the patient's maternal cousin that was diagnosed with breast cancer at 47. IDENTIFICATION AND CHIEF COMPLAINT: Dr. Celestino Kim requested a consultation for genetic counseling and risk assessment for Zachary Hargrove, a 48 year old male, for discussion of his personal history of colon cancer. He presents to clinic today to discuss the possibility of a genetic predisposition to cancer, and to further clarify his risks, as well as his family members' risks for cancer. HISTORY OF PRESENT ILLNESS: In 2022, at the age of 48, Zachary Hargrove was diagnosed with a splenic flexure cancer. This was treated with surgery. PAST MEDICAL HISTORY Diagnosis Date Essential hypertension Thrombosed hemorrhoids PAST SURGICAL HISTORY Procedure Laterality Date LAPAROSCOPIC HEMICOLECTOMY 04/27/2023 PAST SURGICAL HISTORY OF wisdom teeth CANCER SURVEILLANCE HISTORY: Colonoscopy: last 03/2023 EGD: N/A GI Polyps: none per pt report Dermatology: No REPRODUCTIVE HISTORY AND PERSONAL RISK ASSESSMENT FACTORS: Weight: Last 1 Encounter Wt Readings: Date: Wt: 05/11/2023 88.2 kg (194 lb 8 oz) Height: Last 1 Encounter Ht Readings: Date: Ht: 05/11/2023 182.8 cm (5' 11.95") SOCIAL HISTORY: Social History Tobacco Use Smoking status: Never Smokeless tobacco: Never Vaping Use Vaping Use: Never used Substance Use Topics Alcohol use: Never Drug use: Never FAMILY HISTORY: We obtained a detailed, 4-generation family history. Significant diagnoses are listed below: Maternal aunt with colon cancer at 58 Maternal cousin with breast cancer at 47 FAMILY HISTORY Problem Relation Age of Onset Hypertension Mother Hypertension Father No Known Problems Sister No Known Problems Sister Thyroid Brother Diabetes Maternal Grandmother Heart Attack Paternal Uncle The patient's maternal ancestors are of Polish descent and paternal ancestors are of Citizen Of [place] descent. There is no Ashkenazi Nondenominational ancestry. There is no known consanguinity. A copy of the patient's pedigree will be available under the scanned documents tab following today's visit. GENETIC COUNSELING RISK ASSESSMENT, DISCUSSION, AND SUGGESTED FOLLOW UP: We reviewed the natural history and genetic etiology of sporadic, familial and hereditary cancer syndromes. The patient's personal and family history is potentially suggestive of: a hereditary cancer syndrome The patient meets NCCN HBOC criteria based on his personal history of colon cancer at 48. We discussed that identification of a hereditary cancer syndrome may help his care providers tailor his medical management. If a mutation is detected, the National Comprehensive Cancer Network and/or expert opinion recommendations could include increased cancer surveillance and prophylactic surgery options. If a mutation is detected, the patient will be referred back to the referring provider and to any additional appropriate care providers to discuss the relevant options. Inheritance of hereditary cancer syndromes was discussed with the patient. If a mutation is not found in the patient, this will decrease the likelihood of a hereditary cancer syndrome as the explanation for the patient's personal and family history of cancer. However, it cannot completely rule out this possibility. Cancer surveillance options would be discussed for the patient according to the appropriate standard National Comprehensive Cancer Network and [employer] Cancer Society guidelines, with consideration of their personal and family history risk factors. In this case, the patient will be referred back to their care providers for discussions of management. Based on this assessment of the patient's family and personal history, genetic testing is recommended. The patient was offered 68-gene Custom Cancer Panel through [employer]. After considering the risks, benefits, and limitations, the patient chose to pursue and provided informed consent for the following testin-gene Custom Cancer Panel through [employer]. The 68-gene Custom Cancer Panel includes ANKRD26, APC, FLY, AXIN2, BAP1, BARD1, BMPR1A, BRCA1, BRCA2, BRIP1, CDH1, CDK4, CDKN2A, CEBPA, CHEK2, CTNNA1, DDX41, DICER1, ELANE, EPCAM, ETV6, FH, FLCN, GATA2, GREM1, HOXB13, MAX, MBD4, MEN1, MET, MITF, MLH1, MSH2, MSH3, MSH6, MUTYH, NF1, NTHL1, PALB2, PMS2, POLD1, POLE, POT1, PTCH1, PTEN, RAD51C, RAD51D, RET, RTEL1, RUNX1, SAMD9, SAMD9L, SDHA, SDHAF2, SDHB, SDHC, SDHD, SMAD4, SMARCA4, STK11, TERC, TERT, TINF2, TCHJ910, TP53, TSC1, TSC2, and VHL. The Custom Cancer Panel looks at genes associated with inherited breast, ovarian, pancreatic, prostate, colon, uterine, kidney, stomach, endocrine, and hematologic (blood) cancers as well as inherited colon polyp and melanoma syndromes. We discussed that an NGS panel can rarely result in an unexpected finding which may or may not be related to the presenting phenotype. We discussed that [employer] may contact the patient by text or email regarding billing. The patient should watch for this communication and respond promptly. The patient should contact [employer] directly with any billing questions (ph. [phone]). Per the patient's request, we will contact him by telephone to discuss these results. A follow up genetic counseling visit will be scheduled if requested. The patient was seen for a total of 30 minutes, greater than 50% of which was spent [id number] counseling. This plan is being carried out under the oversight of Dr. Dejah Rivero. This note will also be sent to the referring provider via the electronic medical record. Yola Gonsales MS, [facility] CC: Dr. Celestino Rivero documented in this encounter [facility] 05-11-2023 Note HNO ID: [id number] Author: Celestino Kim MD Service: ? Author Type: Physician Type: Progress Notes Filed: 05/11/2023 4:41 PM Note Text: HISTORY OF PRESENT ILLNESS: Zachary Hargrove is a 48 year old male found to have a cancer at splenic flexure on routine colonoscopy. Resected 04-13-23 pT1aN0 Here to discuss next steps CLINICAL IMPRESSION: Stage I colon cancer resected RECOMMENDATION/PLAN: 1. Per NCCN no further treatment needed 2. Surveillance includes only colonoscopy at 1 year and 3 years, sooner if indicated 3. See oncology prn Written and verbal health teaching given to patient, patient verbalizes understanding and agrees with treatment plan. PAST MEDICAL HISTORY Diagnosis Date Essential hypertension Thrombosed hemorrhoids PAST SURGICAL HISTORY Procedure Laterality Date LAPAROSCOPIC HEMICOLECTOMY 04/27/2023 PAST SURGICAL HISTORY OF wisdom teeth FAMILY HISTORY Problem Relation Age of Onset Hypertension Mother Hypertension Father No Known Problems Sister No Known Problems Sister Thyroid Brother Diabetes Maternal Grandmother Heart Attack Paternal Uncle Social History Tobacco Use Smoking status: Never Smokeless tobacco: Never Vaping Use Vaping Use: Never used Substance Use Topics Alcohol use: Never Drug use: Never ALLERGIES: ALLERGIES No Known Allergies CURRENT OUTPATIENT MEDICATIONS: lisinopril (ZESTRIL, PRINIVIL) 20 mg tablet Take 20 mg by mouth once daily. bisoprolol (ZEBETA) 5 mg tablet Take 5 mg by mouth once daily. REVIEW OF SYSTEMS: GENERAL: No fever, night sweats, weight loss or malaise. All other reviewed and negative other than HPI. PHYSICAL EXAMINATION: VITAL SIGNS: BP 133/78 Pulse 62 Temp 97.7 Ht 5' 11.949" (1.83m) Wt 194 lb 8 oz (88.2kg) SpO2 98% BMI 26.40 kg/(m2). GENERAL APPEARANCE: Well appearing, in no acute distress, alert and oriented x3, well-hydrated, well nourished. I spent a total of 45 minutes on the date of the service which included preparing to see the patient, [id number] patient care, completing clinical documentation, obtaining and/or reviewing separately obtained history, counseling and educating the patient/family/caregiver, independently interpreting results (not separately reported), and communicating results to the patient/family/caregiver. Electronically Signed: Celestino Kim MD May 11, 2023 11:04 AM [facility] 05-11-2023 History of Present illness Narrative HISTORY OF PRESENT ILLNESS: Zachary Hargrove is a 48 year old male found to have a cancer at splenic flexure on routine colonoscopy. Resected 04-13-23 pT1aN0 Here to discuss next steps CLINICAL IMPRESSION: Stage I colon cancer resected RECOMMENDATION/PLAN: 1. Per NCCN no further treatment needed 2. Surveillance includes only colonoscopy at 1 year and 3 years, sooner if indicated 3. See oncology prn Written and verbal health teaching given to patient, patient verbalizes understanding and agrees with treatment plan. PAST MEDICAL HISTORY Diagnosis Date Essential hypertension Thrombosed hemorrhoids PAST SURGICAL HISTORY Procedure Laterality Date LAPAROSCOPIC HEMICOLECTOMY 04/27/2023 PAST SURGICAL HISTORY OF wisdom teeth FAMILY HISTORY Problem Relation Age of Onset Hypertension Mother Hypertension Father No Known Problems Sister No Known Problems Sister Thyroid Brother Diabetes Maternal Grandmother Heart Attack Paternal Uncle Social History Tobacco Use Smoking status: Never Smokeless tobacco: Never Vaping Use Vaping Use: Never used Substance Use Topics Alcohol use: Never Drug use: Never ALLERGIES: ALLERGIES No Known Allergies CURRENT OUTPATIENT MEDICATIONS: lisinopril (ZESTRIL, PRINIVIL) 20 mg tablet Take 20 mg by mouth once daily. bisoprolol (ZEBETA) 5 mg tablet Take 5 mg by mouth once daily. REVIEW OF SYSTEMS: GENERAL: No fever, night sweats, weight loss or malaise. All other reviewed and negative other than HPI. PHYSICAL EXAMINATION: VITAL SIGNS: BP 133/78 Pulse 62 Temp 97.7 Ht 5' 11.949" (1.83m) Wt 194 lb 8 oz (88.2kg) SpO2 98% BMI 26.40 kg/(m^2). GENERAL APPEARANCE: Well appearing, in no acute distress, alert and oriented x3, well-hydrated, well nourished. I spent a total of 45 minutes on the date of the service which included preparing to see the patient, [id number] patient care, completing clinical documentation, obtaining and/or reviewing separately obtained history, counseling and educating the patient/family/caregiver, independently interpreting results (not separately reported), and communicating results to the patient/family/caregiver. Electronically Signed: Celestino Kim MD May 11, 2023 11:04 AM documented in this encounter [facility] 05-08-2023 Miscellaneous Notes given to Dr gardner for review. Anh Lindsey LPN Patient is being referred from Dr. Vasquez. CT abd/pelvis completed on 04/20/23 at [facility]. Path and CT report printed and given to Anh to place in a new patient folder. MICROSCOPIC DIAGNOSIS Splenic flexure left colon, left colectomy: Intramucosal carcinoma and detached fragments of tubular adenoma with high-grade dysplasia and carcinoma in situ. Focal ulceration and associated inflammation consistent with previous biopsy site. Four out of four lymph nodes, negative for metastatic carcinoma. Donut-shaped piece of tissue, no pathologic diagnosis. See comment. SJ:josh 05/03/2023 COMMENT Please make reference to previous specimen ([id number]), polyp splenic flexure, polypectomy with diagnosis of invasive adenocarcinoma arising in the background of tubulovillous adenoma, extensive high-grade dysplasia and carcinoma in situ. The tumor invades submucosa. Pathologic staging including previous specimen is pT1, N0, Mx. MSI can be performed on previous specimen [id number] as most of the invasive carcinoma is present in the previous polypectomy specimen. Please notify the laboratory, if they are needed. Case has been reviewed in consultation with Dr. Lewis who concurs with the above diagnosis. IDC:AM Pt calling in, saw provider today at [facility] . Stated he is being referred to our office and provider is sending over referral. Pt just had lumpectomy of left splenic flexure. Dx: Stage 1 Colon Cancer/ Invasive invasive carcinoma of left colon Pt is requesting to see . Please advise on scheduling documented in this encounter [facility] 04-13-2023 History and physi danna note Note Date/Time April 13, 2023 6:47am [facility] Medical Records Department [address] [place] [address] History & Physical Exam 04/13/23 0645 MR#: [id number] Acct: [id number] Name: ZACHARY HARGROVE Rep #:[id number] : 1975 48 From: Al Vasquez MD PCP: Dr. Jackson Sapp MD Status:[facility] Location: [place] [address] HPI - General General Date of Service: 04/13/23 Chief Complaint: Screening for intestinal cancer HPI Narrative ZACHARY HARGROVE, is a 48 M who presents who presents via open access today for screening colonoscopy with possible biopsy or polypectomy. Intermittently he occasionally will have some bright red blood on the tissue paper and attributes that to hemorrhoids. He states that he otherwise enjoys good health other than treated hypertension Family history is negative for colon polyps or colon cancer [facility] Medical History (Updated 04/10/23 @ 12:49 by Yumi Chicas) Cardiac murmur Conductive hearing loss HTN (hypertension) Migraine Non-smoker Thrombosed external hemorrhoid Home Medications bisoprolol fumarate 5 mg tablet 5 mg PO DAILY 02/23/23 [History Last Taken Unknown] lisinopril 20 mg tablet 20 mg PO DAILY 02/23/23 [History Last Taken Unknown] Allergy/AdvReac Type Severity Reaction Status Date / Time No Known Allergies Allergy Verified 04/13/23 06:49 Surgical History Magnolia teeth extracted Social History (Updated 02/23/23 @ 11:31 by Lupis Evangelista) household members: spouse and children number of children: 9 current occupational status: employed 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 Smoking Status: Never smoker alcohol intake: never ROS Constitutional Constitutional: Reports systems reviewed and no addt'l complaints, except as documented Cardiovascular Cardiovascular: Denies chest pain Respiratory/Chest Respiratory/Chest: Denies shortness of breath at rest Gastrointestinal Gastrointestinal: Denies abdominal pain, change in bowel habits, hematochezia ormelena Physical Exam Const alert, oriented x3 and no apparent distress General Appearance: cooperative and comfortable Eyes General Eye: normal appearance of both eyes Neck General: normal visual inspection Chest inspection of chest normal Resp Effort and Inspection: able to speak in complete sentences and symmetric chest movement Auscultation: clear to auscultation bilaterally Cardio regular rate and regular rhythm GI soft to palpation, non-tender and non-distended Extremity no calf tenderness Neuro oriented x3 Psych thought process normal Assessment & Plan Assessment/Plan (1) Encounter for screening for malignant neoplasm of colon: PLAN: 48-year-old gentleman presents via open access today for screening colonoscopy with possible biopsy or polypectomy. He has not had a previous one. He is aware of the technique, benefit, risk, alternatives. He has had an opportunity to ask and have questions answered. We will proceed as noted. Al Vasquez M.D., F.A.C.S. 04/13/23 0650 <Electronically signed by Al Vasquez MD> Cosigner Signature (if applicable): CC: Dr. Jackson Sapp MD; Dr. Al Vasquez MD~ Signed [facility] Work Phone: 1(802) 715-251508-25-2023 Procedure [facility] 04-13-2023 [facility] Brennen Park [facility] Note Date/Time April 14, 2025 8: 24am [facility] Medical Records Department [address] [place] [address] Pre-Anesthesia Evaluation 04/14/25817 MR#: [id number] Acct: [id number] Name: ZACHARY HARGROVE Rep #:[id number] : 1975 50 From: Brennen Park MD PCP: Dr. Jackson Sapp MD Status:REG SDC Y Race: C Location: [place] [address] ASA Classification* ASA Classification ASA Classification: 2 Assessment & Plan Anesthesia* Anesthesia Assessment Anesthesia Assessment: Discussed sedation and/or anesthesia options, risks, benefits, and alternatives with patient/parents/legal guardian/POA. Questions invited. The patient/parents/legal guardian/POA seems to understand and agrees to proceedwith anesthesia plan. Reviewed the physical assessment, medical history, allergy history and patient home medications list prior to surgery/procedure/anesthetic and documented any changes. Performed airway and anesthesia risk assessments. Anesthesia Type Anesthesia Type: MAC History Source History Obtained from:: Patient and Chart Anesthesia Focused Assessment* Temperature: 97.1 F Pulse Rate: 57 Blood Pressure: 154/88 Respiratory Rate: 20 Pulse Ox: 100 Oxygen Delivery Method: Room Air Airway Assessment Mouth opens: >3 cm Mallampati Score: I Teeth Condition: Caps/Crowns (Patient has a crown top right molar. It is tight.) and Partial (Patient has a bottom left prominent bridge. It is tight.) Neck Range of motion (ROM): Limited ROM (Slight Decrease) Labs Anesthesia Preop lab: CBC WBC 5.1 K/mm3 (4.4-11.0) 07/21/24 16:45 07/21/24 RBC 4.77 M/mm3 (4.6-6.2) 07/21/24 16:45 07/21/24 Hgb 14.3 g/dL (13.0-16.5) 07/21/24 16:45 07/21/24 Hct 42.1 % (40-54) 07/21/24 16:45 07/21/24 Plt Count 226 K/mm3 (150-450) 07/21/24 16:45 07/21/24 CHEMISTRY Potassium 4.3 mmol/L (3.3-5.1) 12/01/24 07:55 12/01/24 Sodium 140 mmol/L (133-145) 12/01/24 07:55 12/01/24 Magnesium 2.5 mg/dL (1.6-2.6) 04/18/23 13:34 04/18/23 BUN 28 mg/dL (4-19) H 12/01/24 07:55 12/01/24 Creatinine 1.14 mg/dL (0.70-1.20) 12/01/24 07:55 12/01/24 Glucose 91 mg/dL (70-99) 12/01/24 07:55 12/01/24 POC Glucose 71 mg/dL (74-106) L 04/27/23 11:27 04/27/23 TSH 2.430 uIU/mL (0.300-4.200) 12/01/24 07:55 11/18 12/12 COAG Pre-Assessment Diagnosis/Proposed Procedure Planned Operative Procedure(s): COLOSCOPY Anesthesia History Anesthesia History - buffer nickel: Anesthesia History - buffer nickel Hx Hospitalization No 04/13/25 11:27 Any Problems With Anesthesia No 04/13/25 11:27 Cholinesterase deficiency No 04/13/25 11:27 You/Your Family Experience No 04/13/25 11:27 fever (hyperthermia) with Relationship Recent Exposure to Contagious No 04/14/25 08:01 Disease Does patient have nerve No 04/13/25 11:27 stimulator Patient instructed to have device shut off --Does patient have Pacemaker No 04/14/25 08:01 or ICD? When Was Last Pacemaker Check QUESTION #4 FULL TEXT: You/Your Family Experience fever (hyperthermia) with Anesthesia Last Oral Intake Last Oral intake: Last Oral Intake NPO since 22:00 04/14/25 08:01 Meds taken in AM with sips of Yes 04/14/25 08:01 water? Meds patient instructed to take am of surgery Any additional information?: Yes Meds taken in AM with sips of water?: Yes PONV PONV - buffer nickel: PONV - buffer nickel Female No 04/13/25 11:27 HX of Motion Sickness No 04/13/25 11:27 HX of N/V After Surgery No 04/13/25 11:27 Non-Smoker Yes 04/13/25 11:27 Duration of Surgery greater No 04/13/25 11:27 than 60 minutes Number of Risk Factors 1 04/13/25 11:27 PONV Score Low Risk 04/13/25 11:27 Height & Weight Height & Weight: Anesthesia: Height & Weight Height 5 ft 11 in 04/14/25 08:01 Weight: 90 kg 04/14/25 08:01 Body Mass Index (BMI) 27.6 04/14/25 08:01 Respiratory Assessment Respiratory Assessment - buffer nickel: Respiratory Tract Infection Hx - buffer nickel Hx Respiratory Tract Infection No 04/13/25 11:27 STOP Sleep Apnea STOP Sleep Apnea - buffer nickel: STOP Sleep Apnea - buffer nickel Hx Hypertension Yes: CONTROLLED WITH MED 04/13/25 11:27 Hx Sleep Apnea No 04/13/25 11:27 CPAP BIPAP Do you snore loudly (louder No 04/13/25 11:27 than talking or can be heard Do you often feel tired/ No 04/13/25 11:27 fatigued/ sleepy during daytime? Has anyone observed you stop No 04/13/25 11:27 breathing during sleep? STOP Results Negative 04/13/25 11:27 QUESTION #5 FULL TEXT : Do you snore loudly (louder than talking or can be heard through closed doors)? 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 Specify any problems Hx of Preganancy in last 3 N/A 04/13/25 11:27 Months Nurse Filling Out Transfusion VCHRISTIN 04/13/25 11:27 & Questions: Date: 04/13/25 04/13/25 11:27 Time: 11:27 04/13/25 11:27 Patient unable to answer at this time (ie. confused, unrespo /Reproduction History /Reproductive History - buffer nickel: /Reproductive Hx- buffer nickel Hx Now No 04/13/25 11:27 Gestational Age (in weeks): EDC: Hx Hx Para Hx Section SAB No 04/13/25 11:27 Active Medications Active Medications: Current Medications Generic Name Dose Route Start Last Admin Trade Name Erwin PRN Reason Stop Dose Admin Lactated Ringer's 1,000 mls @ 15 mls/hr 04/14/25 08:00 04/14/25 08:12 IV 15 mls/hr .Q48H MALINDA Administration PFSH Medical History Colon cancer Non-smoker Migraine Cardiac murmur Conductive hearing loss Thrombosed external hemorrhoid HTN (hypertension) Encounter for screening for malignant neoplasm of colon Home Medications ?Medication ?Instructions ?Recorded ?Last Taken ?Type bisoprolol fumarate 5 mg tablet 5 mg PO DAILY HTN 03/1104/14/25 History lisinopril 20 mg tablet 20 mg PO DAILY HTN 02/23/23 04/13/25 History Allergy/AdvReac Type Severity Reaction Status Date / Time No Known Allergies Allergy Verified 04/14/25 07:59 Family History Father Hypertension Mother Hypertension Diabetes Surgical History Hx of fusion of cervical spine Hx of colonoscopy S/P colectomy Magn[place] teeth extracted Social History household members: spouse and children number of children: 9 current occupational status: employed 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 04/14/25823 <Electronically signed by Brennen hassan MD> Date _ Brennen Park MD Cosigner Signature: Date CC: ~ Signed [facility] Work Phone: Consult note Author Vijay Denson [facility] Note Date/Time April 14, 2025 9: 20am [facility] Medical Records Department [address] [place] [address] Anesthesia Postop Eval I 04/14/25918 MR#: [id number] Acct: [id number] Name: ZACHARY HARGROVE Rep #:[id number] : 1975 50 From: Vijay lewis [employer] PCP: Dr. Jackson Sapp MD Status:REG SD Y Race: C Location: [place] [address] Anesthesia: Postop Eval I Current Vital Signs Temperature: 97.1 F Pulse Rate: 61 Blood Pressure: 124/94 Respiratory Rate: 61 Pulse Ox: 97 Oxygen Delivery Method: Room Air Assessment Airway patent: Yes Spontaneous unlabored respirations: Yes nausea: No Vomiting: No Anesthesia Complication: No Fluid Hydration Crystalloid volume administer (ml): 500 Total IV fluid infused: 500 Progress Note Anesthesia document: Postop Eval 1 completed: Yes 04/14/25919 <Electronically signed by Vijay mahmood CRNA> Date _ Vijay Yujoshua [employer] ST[employer]ER Cosigner Signature: Date CC: ~ Signed [facility] Work Phone: Evaluation noteNo assessment information available [facility] Work Phone: Evaluation note* Diagnosis Onset Date Resolution Status Encounter for screening for malignant neoplasm of colo n acute [facility] Work Phone: Evaluation note* Diagnosis Malignant neoplasm of splenic flexure (HCC)- Primary Malignant neoplasm of spl[facility] flex[facility] Malignant neoplasm of splenic flexure (HCC)- Primary Malignant neoplasm of splenic flexure Family history of colon cancer Family history of malignant neoplasm of gastrointestinal tract Family history of breast cancer Family history of malignant neoplasm of breast [facility] Diagnosis Onset Date Resolution Status Admit Date Colon cancer acute April 14, 2025 7:40am [facility] Work Phone: History and physical note Author Manan Garza [facility] Note Date/Time April 14, 2025 8: 24am [facility] Medical Records Department [address] [place] [address] History & Physical Exam 04/14/25 0820 MR#: [id number] Acct: [id number] Name: ZACHARY HARGROVE Rep #:[id number] : 1975 50 From: Manan bowen MD PCP: Dr. Jackson Sapp MD Status:[facility] Location: [place] [address] HPI - General HPI Narrative ZACHARY HARGROVE, is a 50 M who presents for surveillance colonoscopy. The patient had a colon cancer in 2022 that he had a left hemicolectomy for. Patient is doing well except for thrombosed hemorrhoid. He denies abdominal pain or blood in the stool. [facility] Medical History Colon cancer Non-smoker Migraine Cardiac murmur Conductive hearing loss Thrombosed external hemorrhoid HTN (hypertension) Encounter for screening for malignant neoplasm of colon Home Medications ?Medication ?Instructions ?Recorded ?Last Taken ?Type bisoprolol fumarate 5 mg tablet 5 mg PO DAILY HTN 03/1104/14/25 History lisinopril 20 mg tablet 20 mg PO DAILY HTN 02/23/23 04/13/25 History Allergy/AdvReac Type Severity Reaction Status Date / Time No Known Allergies Allergy Verified 04/14/25 07:59 Family History Father Hypertension Mother Hypertension Diabetes Surgical History Hx of fusion of cervical spine Hx of colonoscopy S/P colectomy [place] teeth extracted Social History household members: spouse and children number of children: 9 current occupational status: employed 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 Smoking Status: Never smoker alcohol intake: never Past Medical/Surgical History Planned Operation Planned Operative Procedure(s): COLOSCOPY Previous Hospitalizations/Surgeries HX Hospitalizations: No Any Problems With Anesthesia: No You/Your Family Experience Fever (Hyperthermia) With Anes: No Cholinesterase deficiency: No Cardiovascular Hx Chest Pain within Last 2 months: No Hx Heart Attack: No Hx Hypertension: Yes (CONTROLLED WITH MED) Hx Cardiac Surgery/Stents/Etc.: No Respiratory Hx Chronic Obstructive Pulmonary Disease (COPD): No Hx Sleep Apnea: No Hx Respiratory Tract Infection/Cold (presently): No Do You Snore Loudly (louder than talking or can be heard): No Do You Often Feel Tired/ Fatigued/ Sleepy Dring Daytime?: No Has Anyone Observed You Stop Breathing During Sleep?: No Result (for STOP score): Negative Smoking Status: Never smoker Neurological Hx Parkinson's Disease: No Does patient have nerve stimulator: No Blood Disorder Hx Anemia: No Reproduction : No Genitourinary Hx Dialysis: No Musculoskeletal Hx Rheumatoid Arthritis: No Endocrine Hx Diabetes: No Thyroid Disease: No Psycho/Social Hx Depression: No Hx Dementia: No Miscellaneous Hx Cancer: No Recent Exposure to Contagious Disease: No Allergies No Known Allergies Allergy (Verified 04/14/25 07:59) Discharge Is Pt Admitted From a Halfway, or a Custodial: No After D/C, Where Do you Plan to Go: Return Home Vital Signs Vital Signs Vital Signs: 04/14/25 08:01 04/14/25 08:01 Temperature 97.1 F L Temperature Source Temporal Pulse Rate 57 L Respiratory Rate 20 H Respiratory Pattern Normal Blood Pressure 154/88 H Blood Pressure Mean 110 Blood Pressure Source Monitor Blood Pressure Position Semi-Fowlers Blood Pressure Location Right Arm Pulse Ox 100 Oxygen Delivery Method Room Air Weight Weight: 198 lb 6.656 oz Body Mass Index (BMI) 27.6 Physical Exam Const alert and oriented x3 HEENT normocephalic Eyes PERRL Resp normal respiratory effort and normal air movement Cardio regular rate and regular rhythm GI soft to palpation, non-tender and non-distended Extremity normal to inspection Assessment & Plan Assessment/Plan (1) Colon cancer: QUALIFIERS: Colon location: descending Qualified Code(s): C18.6 -Malignant neoplasm of descending colon PLAN: Patient has a history of colon cancer 2 years ago and is here for his yearly surveillance colonoscopy. The patient also has a thrombosed hemorrhoid and I asked him to come into the office to address this and I can evacuate it. I explained endoscopy in detail to the patient. I explained the risks includingbut not limited to stroke or heart attack with anesthesia, perforation of the GItract, bleeding, infection. I explained that any of these could necessitate further emergency surgery. The patient understands and all questions were answered sufficiently. The patient wishes to proceed with procedure. Manan Garza MD Pager: [facility] [address] [place] [address], [address] [place] [address] Office: Surgery Risks - Colonoscopy Risks Include but are not Limited To: Risks include but are not limited to: Bleeding, perforation requiring further surgery, inability to complete colonoscopy requiring barium enema. 04/14/25823 <Electronically signed by Manan Garza MD> Cosigner Signature (if applicable): CC: Dr. Manan Garza MD; Dr. Jackson Sapp MD~ Signed [facility] Work Phone: Reason for referral (narrative)No reason for referral [facility] Work Phone: Chief Complaint and Reason for Visit Chief Complaint Amb Documentation Reason for Visit Encounter for screen ing for malignant neoplasm of colon Chief Complaint Admit Date EORDERS December 01, 2024 7:5 1am Reason for Visit Admit Date Colon cancer April 14, 2025 7: 40am Advance Directives No Advanced Directives Records Found Advance Directive Response Recorded Date/ Time Name of Medical Power of Control Officer Manager April 10, 2023 12:45pm Living Will Yes April 10 12:45pm Power of Control Officer Manager Yes April 10 12:45pm Advance Directive Response Recorded Date/ Time Do you have a Healthcare Power of Control Officer Manager? No April 13, 2025 11:27am Reason for Referral Specialty Diagnoses / Procedures Referred By Ivan lees Referred To Contact Diagnoses Malignant neoplasm of splenic flexure (HCC) Procedures CONSULT TO MEDICAL GENETICS - CANCER MEDICAL GENETICS COUNSELING EACH [place] [address] [place] [address] [facility] [address] [place] [address] Referral ID Status Reason Start Date Expiration Date Visits Requested Visits Authorized [id number] Pending Review PCP Requested Referral Auto-Generate d Referral 05/11/2023 05/10/2024 1 1 Summary Purpose Family History No Family History Records Found Relationship Condition Age at Onset Recorded Date/T arturo father Hypertension Unknown mother Hypertension Unknown Diabetes mellitus Unknown Additional Source Comments Care Teams (unrecognized sec tion and content) Team Status: Active Member Role Status Dates Dr. Jackson Sapp MD Family Provider Active Dr. Jackson Sapp MD Primary Care Provider Active Team Status: Inactive Member Role Status Dates Dr. Jackson Sapp MD Primary Care Provide r, Attending Provider, Referring Provider Active Team Status: Active Member Role Status Dates Dr. Jackson Sapp MD Primary Care Provider Active [facility] Attending Provider Active Team Status: Active Member Role Status Dates Dr. Jackson Sapp MD Primary Care Provider, Referring P rovider Active Dr. Al Vasquez MD Attending Provider, Other Prov ider Active Team Status: Inactive Member Role Status Dates Dr. Jackson Sapp MD Primary Care Provider, Referring P rovider Active Dr. Al Vasquez MD Attending Provider Active K9 Handler Relationship Specialty Start Date End Date Jose Wagner MD [address] [facility] [address] [place], [place] [phone] PCP - General Family Medicine 08/02/21 K9 Handler Relationship Specialty Start Date End Date Jose Wagner MD [address] [facility] [address] [place], [place] [phone] PCP - General Family Medicine 08/02/21 K9 Handler Relationship Specialty Start Date End Date Jose Wagner MD [address] [facility] [address] [place], [place] [phone] PCP - General Family Medicine 08/02/21 K9 Handler Relationship Specialty Start Date End Date Jose Wagner MD [address] [place] [address] PCP - General Family Medicine 08/02/21 Team Status: Inactive Member Role Status Dates Dr. Jackson Sapp MD Primary Care Provider Active Start: December 01, 2024 End: December 01, 2024 Dr. Jackson Sapp MD Attending Provider Active St art: December 01, 2024 End: December 01, 2024 Dr. Jackson Sapp MD Referring Provider Active St art: December 01, 2024 End: December 01, 2024 Team Status: Active Member Role/Relationship Status Dates Dr. Jackson Sapp MD Primary Care Provider Active Team Status: Inactive Member Role/Relationship Status Dates Dr. Jackson Sapp MD Primary Care Provider Active Start: April 14, 2025 End: April 14, 2025 Dr. Jackson Sapp MD Referring Provider Active St art: April 14, 2025 End: April 14, 2025 Dr. Manan Garza MD Attending Provider Active Start: April 14, 2025 End: April 14, 2025 Team Status: Active Member Role/Relationship Status Dates Dr. Jackson Sapp MD Primary Care Provider Active Start: April 14, 2025 Dr. Jackson Sapp MD Referring Provider Active St art: April 14, 2025 Dr. Manan Garza MD Attending Provider Active Start: April 14, 2025 Dr. Manan Garza MD Other Provider Active Start: April 14, 2025 Goals (unrecognized section and content) Goals may be documented in a n alternate sectionGoals may be documented in an alternate section Source Comments (unrecognize d section and content) In the event this informatio n is protected by the Federal Confidentiality of Alcohol and Drug Abuse Patient Records regulations: The Federal rules restrict any use of the information to criminally investigate or prosecute any alcohol or drug abuse patient.[facility] the event this information is protected by the Federal Confidentiality of Alcohol and Drug Abuse Patient Records regulations: The Federal rules restrict any use of the information to criminally investigate or prosecute any alcohol or drug abuse patient.[facility] the event this information is protected by the Federal Confidentiality of Alcohol and Drug Abuse Patient Records regulations: The Federal rules restrict any use of the information to criminally investigate or prosecute any alcohol or drug abuse patient.[facility] the event this information is protected by the Federal Confidentiality of Alcohol and Drug Abuse Patient Records regulations: The Federal rules restrict any use of the information to criminally investigate or prosecute any alcohol or drug abuse patient.[facility] Reason for Visit (unrecogniz ed section and content) Reason Comments New Patient Reason Comments New Patient Reason Comments Colon Cancer Specialty Diagnoses / Procedures Referred By Contac t Referred To Contact Diagnoses Malignant neoplasm of splenic flexure (HCC) Procedures CONSULT TO MEDICAL GENETICS - CANCER MEDICAL GENETICS COUNSELING EACH 30 [place] [address] [place] [address] [facility] [place] [address] Referral ID Status Reason Start Date Expiration Date Visits Requested Visits Authorized [id number] Pending Review PCP Requested Referral Auto-Generate d Referral 05/11/2023 05/10/2024 1 1 Reason Comments Results Genetic test results (unrecognized sect ion and content) No Status Records FoundNo Status Records Found INFORMATION SOURCE (unrecogn ized section and content) DATE CREATED AUTHOR 09/19/2023 [facility] DATE CREATED AUTHOR AUTHOR'S ORGANIZ ATION 05/11/2025 [facility] FOR RECORDS PERTAINING TO PATIENTS WHO ARE OR HAVE BEEN ENROLLED IN A CHEMICAL DEPENDENCY/SUBSTANCEABUSE PROGRAM, SOME INFORMATION MAY BE OMITTED. This clinical summary was aggregated from multiple sources. Caution should be exercised in using it in the provision of clinical care. This summary normalizes information from multiple sources, and as a consequence, information in this document may materially change the coding, format and clinical context of patient data. In addition, data may be omitted in some cases. CLINICAL DECISIONS SHOULD BE BASED ON THE PRIMARY CLINICAL RECORDS. [employer] provides no warranty or guarantee of the accuracy or completeness of information in this document.
--- NOTE | 2025-07-03 22:00 | CT_ITS ---
PROCEDURE: SINUS/FACIAL BONE 07/04/2025 REASON FOR EXAM: NASAL TRAUMA/FRACTURE TECHNIQUE: Procedure Code: CTSI Modality: CT Procedure: SINUS/FACIAL BONE Coronal and Sagittal reconstruction series were provided. One or more dose reduction techniques were used (e.g., Automated exposure control, adjustment of the mA and/or kV according to patient size, use of iterative reconstruction technique). RADIATION DOSE SUMMARY: CTDI Vol 22.63 mGy DLP :515.6mGycm COMPARISON: none FINDINGS: Acute comminuted displaced fractures of the nasal bones as well as the related anterosuperior aspect of the nasal septum with related soft tissue edema. Bowed nasal septum convex to the right side. The scanned paranasal sinuses show intact bony boundaries. Mild mucosal thickening of the maxillary antra encroaching upon the osteomeatal units. Right maxillary frothy secretions noted. Clear ethmoidal air cells, frontal and sphenoid sinuses. Patent both sphenoethmoidal recesses. Clear left middle bill bullosa. Normal osseous texture of the mandible with no fractures or destructive osseous lesions. Normal temporomandibular joints. The orbital bony boundaries are intact. The orbits have a normal appearance with unremarkable eye globes and extra- ocular muscles. Clear intra-orbital fat planes. The pterygoid plates and pterygopalatine fossa are normal. The zygomatic arches are normal and there is no diastasis of the frontozygomatic suture. CT/Sinus/Facial Bone IMPRESSION: Acute comminuted displaced fractures of the nasal bones as well as the related anterosuperior aspect of the nasal septum with related soft tissue edema. Bowed nasal septum convex to the right side. Mild maxillary sinusitis. Reading Location: [place] [id number]
--- NOTE | 2025-07-03 22:32 | ED.RN ---
pt and spouse are requesting to leave prior to obtaining results. educated on concussion symptoms and reminded to return to ed if symptoms present. reminded that there may be unanticipated results found in the ct scan that warrant additional interventions. advised that they will not be receiving any information re: their results or diagnoses as a result of the ct. pt & spouse prefer to leave at this time and follow up with plastics o/p.
== END 2025-07-03 22:38 | disposition left against medical advice (07) ==
PROVIDERS: Emergency Provider Emergency Medicine; PCP Family Medicine; Visit Provider Emergency Medicine
DX: S02.2XXA Fracture of nasal bones, initial encounter for closed fracture (principal); I10 Essential (primary) hypertension; Z85.038 Personal history of other malignant neoplasm of large intestine; W50.0XXA Accidental hit or strike by another person, initial encounter; Y93.67 Activity, basketball; Z79.899 Other long term (current) drug therapy; Z90.49 Acquired absence of other specified parts of digestive tract
CPT/HCPCS: 70486; 99282